=== PATIENT | female | born 1985 | race Caucasian/White ===

== ENCOUNTER 2016-11-27 15:48 | Inpatient (IN) | payer OTHER ==
[2016-11-27] VITALS (8 sets, daily range): BP systolic 105–126; BP diastolic 67–83
[~2016-11-27] VITALS: Ht 160 cm; Wt 63.0 kg
[~2016-11-27 15:48] MED LIST: ESCITALOPRAM OX10 MG ORAL; LEVOTHYROXINE175 MCG ORAL
[2016-11-27 17:34] LABS: BASOPHILS % (AUTO) 1.7 % (0.0-2.0); EOSINOPHILS % (AUTO) 1.6 % (0.0-3.0); LYMPHOCYTES % (AUTO) 19.4 % (20.0-45.0); MEAN CORPUSCULAR HEMOGLOBIN 30.8 PG (27.0-31.0); MEAN CORPUSCULAR HGB CONC 33.5 G/DL (32.0-36.0); MEAN CORPUSCULAR VOLUME 92 FL (80-99); MEAN PLATELET VOLUME 6.2 FL (6.5-10.1); MONOCYTES % (AUTO) 12.2 % (1.0-10.0); NEUTROPHILS % (AUTO) 65.1 % (45.0-75.0); PLATELET COUNT 394 K/UL (150-450); RED BLOOD COUNT 3.42 M/UL (4.20-5.40); RED CELL DISTRIBUTION WIDTH 11.2 % (11.6-14.8); WHITE BLOOD COUNT 8.5 K/UL (4.8-10.8)
[2016-11-27 17:37] LABS: APPEARANCE,URINE SLIGHTLY CLOUDY; KETONES,URINE NEGATIVE (NEGATIVE); LEUKOCYTE ESTERASE ,URINE 1+ (NEGATIVE); NITRITE,URINE NEGATIVE (NEGATIVE); PH,URINE 6 (4.5-8.0); PROTEIN,URINE NEGATIVE (NEGATIVE); UROBILINOGEN,URINE NORMAL MG/DL (0.0-1.0)
[2016-11-27 17:53] LABS: BACTERIA,URINE MODERATE /HPF; RBC,URINE 0-2 /HPF (0 - 2); SQUAMOUS EPITHELIAL CELL,UR MANY /LPF (NONE/OCC); WBC,URINE 0-2 /HPF (0 - 2)
[2016-11-27 18:00] LABS: PROTHROMBIN TIME 10.6 SEC (9.30-11.50)
[2016-11-27] MEDS ORDERED: Morphine Sulfate 4mg/ml Inj IVP ONE ×2 (18:15→19:00)
[2016-11-27 18:18] LABS: ALANINE AMINOTRANSFERASE 9 U/L (3-33); ALBUMIN/GLOBULIN RATIO 1.1 (1.0-2.7); ANION GAP 12 (5-15); ASPARTATE AMINO TRANSFERASE 12 U/L (5-40); CALCIUM 8.8 mg/dL (8.6-10.2); CARBON DIOXIDE 27 mEQ/L (20-30); CHLORIDE 101 mEQ/L (98-107); CREATININE 0.6 mg/dL (0.5-0.9); GLOMERULAR FILTRATION RATE > 60 mL/min (>60); HEMOLYSIS 1; SODIUM 140 mEQ/L (135-145)
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
[2016-11-27] MEDS ORDERED: [UNRECOGNIZED DRUG - OTHER] PO (19:14)
[2016-11-27] MEDS ORDERED: LEXAPRO10 MG ORAL (19:14)
[2016-11-27] MEDS ORDERED: CIPRO500 MG PO (19:14)
[2016-11-27] MEDS ORDERED: LEVOTHYROXINE125 MCG ORAL (19:14)
[2016-11-27] MEDS ORDERED: BUPROPION XL300 MG ORAL (19:14)
[2016-11-27] MEDS ORDERED: Vit E PO (19:14)
[2016-11-27] MEDS ORDERED: [UNRECOGNIZED DRUG - OTHER] (19:14)
[2016-11-27] MEDS ORDERED: IRON18 M1 PO (19:14)
[2016-11-27] MEDS ORDERED: SENNA LAXATIVE8.6 MG PO (19:14)
[2016-11-27] MEDS ORDERED: Propofol 10mg/ml 20ml IV ONE (19:23)
[2016-11-27] MEDS ORDERED: Bacitracin 50000 Units Vial ONE ×2 (19:24→20:20)
[2016-11-27] MEDS ORDERED: Bupivacaine w/Epi 0.25% 30ml Vial INJ ONE ×2 (19:53→21:05)
--- NOTE | 2016-11-27 20:11 | Anethesia Preoperative Eval ---
Anesthesia Pre-op PMH/ROS General Date of Evaluation: Nov 27, 2016 Anesthesiologist: Nathan ASA Score: ASA 2 Mallampati Score Class I : Soft palate, uvula, fauces, pillars visible Class II: Soft palate, uvula, fauces visible Class III: Soft palate, base of uvula visible Class IV: Only hard plate visible Mallampati Classification: Class II Surgeon: Brian Diagnosis: Right knee abscess Surgical Procedure: Right knee arthroscopy, I&D, washout Anesthesia History: none Family History: no anesthesia problems Allergies: Coded Allergies: HYDROMORPHONE (Verified Allergy, Unknown, 11/27/16) Medications: see eMAR Past Medical History Cardiovascular: Denies: CAD, HTN, VT, arrhythmia, other, valve dz Pulmonary: Denies: COPD, CHARISMA, asthma, other Gastrointestinal/Genitourinary: Denies: CRI, ESRD, GERD, other Neurologic/Psychiatric: Reports: depression/anxiety, Denies: CVA, TIA, dementia, other Endocrine: Reports: hypothyroidism, Denies: DM, other, steroids HEENT: Denies: [place] (L), [place] (R), cataract (L), cataract (R), glaucoma, other Hematology/Immune: Denies: DVT, anemia, bleeding disorder, other Musculoskeletal/Integumentary: Denies: DDD, DJD, OA, RA, edema, other PSxH Narrative: T&A, left ankle surgery, right knee arthroscopy Anesthesia Pre-op Phys. Exam Physician Exam Last Vital Signs Date Time Temp Pulse Resp B/P Pulse Ox O2 Delivery O2 Flow Rate FiO2 11/27/16 19:36 97.8 86 18 118/68 100 Room Air Constitutional: NAD Cardiovascular: RRR Respiratory: CTA Airway Exam Mallampati Score: Class I MO: full ROM: full Teeth: intact Anesthesia Pre-op A/P Labs Hematology Test 11/27/16 17:05 White Blood Count 8.5 K/UL (4.8-10.8) Red Blood Count 3.42 M/UL (4.20-5.40) L Hemoglobin 10.5 G/DL (12.0-16.0) L Hematocrit 31.4 % (37.0-47.0) L Mean Corpuscular Volume 92 FL (80-99) Mean Corpuscular Hemoglobin 30.8 PG (27.0-31.0) Mean Corpuscular Hemoglobin Concent 33.5 G/DL (32.0-36.0) Red Cell Distribution Width 11.2 % (11.6-14.8) L Platelet Count 394 K/UL (150-450) Mean Platelet Volume 6.2 FL (6.5-10.1) L Neutrophils (%) (Auto) 65.1 % (45.0-75.0) Lymphocytes (%) (Auto) 19.4 % (20.0-45.0) L Monocytes (%) (Auto) 12.2 % (1.0-10.0) H Eosinophils (%) (Auto) 1.6 % (0.0-3.0) Basophils (%) (Auto) 1.7 % (0.0-2.0) Erythrocyte Sedimentation Rate 112 MM/HR (0-20) H Coagulation Test 11/27/16 17:05 Prothrombin Time 10.6 SEC (9.30-11.50) Prothromb Time International Ratio 1.0 (0.9-1.1) Activated Partial Thromboplast Time 30 SEC (23-33) Chemistry Test 11/27/16 17:05 Sodium Level 140 mEQ/L (135-145) Potassium Level 4.0 mEQ/L (3.4-4.9) Chloride Level 101 mEQ/L (98-107) Carbon Dioxide Level 27 mEQ/L (20-30) Anion Gap 12 (5-15) Blood Urea Nitrogen 11 mg/dL (7-23) Creatinine 0.6 mg/dL (0.5-0.9) Estimat Glomerular Filtration Rate > 60 mL/min (>60) Glucose Level 83 mg/dL (74-106) Lactic Acid Level 0.90 mmol/L (0.66-2.22) Calcium Level 8.8 mg/dL (8.6-10.2) Total Bilirubin 0.2 mg/dL (0.0-1.2) Aspartate Amino Transf (AST/SGOT) 12 U/L (5-40) Alanine Aminotransferase (ALT/SGPT) 9 U/L (3-33) Alkaline Phosphatase 75 U/L (35-104) C-Reactive Protein, Quantitative Pending Total Protein 7.0 g/dL (6.6-8.7) Albumin 3.7 g/dL (3.5-5.2) Globulin 3.3 g/dL Albumin/Globulin Ratio 1.1 (1.0-2.7) Urine Test Test 11/27/16 16:30 Urine HCG, Qualitative Negative Risk Assessment & Plan Assessment: ASA II Plan: GA Status Change Before Surgery: No Pre-Antibiotics Drug: Cefepime 1g Given Within 1 Hr of Incision: Yes KULDEEP OCHOA M.D. Nov 27, 2016 20:11
[2016-11-27] MEDS ORDERED: LR 1000ml 1,000 ML IVLG SCH (20:12)
--- NOTE | 2016-11-27 20:14 | Immediate Post-Op Evaluation ---
Immediate Post-Op Evalulation Immediate Post-Op Evalulation Procedure: Right knee I&D Date of Evaluation: Nov 27, 2016 Time of Evaluation: 21:18 IV Fluids: 1L Blood Products: 0 Estimated Blood Loss: min Urinary Output: 0 Blood Pressure Systolic: 105 Blood Pressure Diastolic: 69 Pulse Rate: 65 Respiratory Rate: 13 O2 Sat by Pulse Oximetry: 97 Temperature (Fahrenheit): 97.2 Pain Score (1-10): 0 Nausea: No Vomiting: No Complications 0 Patient Status: awake, reacts, patent, none Hydration Status: adequate Drug: Cefepime 1g Given Within 1 Hr of Incision: Yes Time Given: 20:45 KULDEEP OCHOA M.D. Nov 27, 2016 20:14
[2016-11-27] MEDS ORDERED: Labetalol 5mg/ml 20ml vial IV PRN (20:15)
[2016-11-27] MEDS ORDERED: fentaNYL 100 mcg/2 mL IV PRN (20:15)
[2016-11-27] MEDS ORDERED: DiphenhydrAMINE 50mg/ml Inj IVP PRN (20:15)
[2016-11-27] MEDS ORDERED: Ketorolac 30mg Inj IV PRN (20:15)
[2016-11-27] MEDS ORDERED: Metoclopramide 10mg/2ml Inj IVP PRN (20:15)
[2016-11-27] MEDS ORDERED: Cefepime 1gm vial ONE (20:20)
--- NOTE | 2016-11-27 20:20 | Operative Note - PDOC ---
Operative Note Operative Note Pre-op Diagnosis: possible septic joint knee Procedure: see op report Post-op Diagnosis: same as pre-op plus Operative Findings: consistent w/pre-op dx studies Anesthesia: general Specimen: yes Complications: none Condition: stable Estimated Blood Loss: none Implant(s) used?: No KALYAN NAVARRO Nov 27, 2016 20:20
--- NOTE | 2016-11-27 20:20 | Pre-Procedure Note/Attestation ---
Pre-Procedure Note/Attestation Complete Prior to Procedure Planned Procedure: right Procedure Narrative: arthroscopic I&D knee Indications for Procedure Pre-Operative Diagnosis: possible septic joint knee Attestation I attest that I discussed the nature of the procedure; its benefits; risks and complications; and alternatives (and the risks and benefits of such alternatives ), prior to the procedure, with the patient (or the patient's legal medicare sales representative). I attest that, if there was a reasonable possibility of needing a blood transfusion, the patient (or the patient's legal medicare sales representative) was given the [facility] standardized written summary, pursuant to the [place] Blood Safety Act ([place] Health and Safety Code # 1645, as amended). I attest that I re-evaluated the patient just prior to the surgery and that there has been no change in the patient's H&P, except as documented below: KALYAN NAVARRO Nov 27, 2016 20:20
[2016-11-27] MEDS ORDERED: Norco 5mg/325mg tab ORAL PRN (20:30)
[2016-11-27] MEDS ORDERED: Hydromorphone 0.5mg/0.5ml inj SUBQ PRN (20:30)
[2016-11-27 21:45] LABS: BD FL SOURCE SYNOVIAL; BD FL VOLUME 6 mL; BODY FLUID NUCLEATED CELLS 112000 /CUMM; BODY FLUID RBC 53600 /CUMM; MONONUCLEAR WBC 4 %; POLYMORPHONUCLEAR WBC 96 %
[2016-11-27] MEDS ORDERED: Midazolam 2mg/2ml Inj ONE (22:05)
[2016-11-27] MEDS ORDERED: Midazolam 2mg/2ml Inj IVP ONE (22:15)
[2016-11-28] VITALS: BP 115/66
[2016-11-28] MEDS ORDERED: Morphine Sulfate 2mg/ml Inj IVP PRN (00:30)
[2016-11-28] MEDS: Morphine Sulfate 2mg/ml Inj IVP PRN ×6 (00:59→23:48)
[2016-11-28] MEDS: Cefepime HCl 1 GM in D5W 55 ML IVPB SCH ×2 (01:48→09:55)
[2016-11-28] MEDS: D5 1/2NS 1,000 ML IV SCH ×2 (01:49→08:04)
[2016-11-28 04:00] VITALS: BP 127/68
[2016-11-28] MEDS ORDERED: Miralax 17gm pkt ORAL PRN (06:45)
[2016-11-28] MEDS ORDERED: Docusate 100mg cap ORAL PRN (06:45)
--- NOTE | 2016-11-28 07:09 | Consultation ---
DATE OF CONSULTATION: 11/27/2016 CONSULTING PHYSICIAN: Chilo Torres M.D. CHIEF COMPLAINT: Right knee pain. HISTORY OF PRESENT ILLNESS: The patient is a 30-year-old female who approximately three months ago underwent an uncomplicated right knee arthroscopy and almost six weeks later, she was traveling to [place] and subsequently developed acute knee pain and swelling. She was ultimately diagnosed with Pseudomonas. She was treated and was rehabbing with her parents. She subsequently flew over the weekend on Saturday to [place] and on Saturday she contacted me with a concern given that she has significant recurrent pain. This is the same kind of clinical scenario that occurred when she traveled last time around. Given her history, she went to the ER where she had ultrasound, which was unremarkable. She subsequently noticed swelling in the knee. She contacted me. I informed her that I would like to see her and clinically examine her. Today, she came into the office. She had a warm and swollen knee. It was very painful with palpation or range of motion. With her history of previous Pseudomonas infection, which is unlikely organism and her clinical history which is very similar to what occurred before, I was concerned that she may have an infection. She underwent aspiration in the office, which showed some bloody, cloudy fluid, nothing like a normal synovial tissue. She had a previous history of infection and the concern that she has pain similar to what she had before, we decided to treat her for possible septic joint. She was sent to the ER. The fluid aspiration was done in the office and was sent out for Gram stain, aerobic and anaerobic cultures. She subsequently was admitted to undergo urgent I and D. PAST MEDICAL HISTORY: Reviewed and unchanged except as mentioned above. PAST SURGICAL HISTORY: Reviewed and unchanged except as mentioned above. MEDICATIONS: Reviewed and unchanged except as mentioned above. ASSESSMENT: Right possible knee infection due to previous Pseudomonas infection of right knee. DISCUSSION: At this point, we are going to proceed with an urgent arthroscopic I and D of the knee. Risks, limitations, expectations, and complications of procedure were discussed in detail. The patient will be NPO. We will proceed with surgery when the operating room is available. Chilo Torres M.D. DR: LESLIE JOB#: [id number] CC:
[2016-11-28] MEDS: Docusate 100mg cap ORAL SCH ×3 (08:02→19:17)
[2016-11-28 08:15] VITALS: BP 96/71
--- NOTE | 2016-11-28 11:03 | Infectious Diseases Prog Note ---
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 Torres 5) thank you Subjective Allergies: Coded Allergies: HYDROMORPHONE (Verified Allergy, Unknown, 11/27/16) Objective Vital Signs Last 24 Hour Vital Signs Date Time Temp Pulse Resp B/P Pulse Ox O2 Delivery O2 Flow Rate FiO2 11/28/16 09:03 98.1 11/28/16 08:15 98.1 82 21 96/71 96 Room Air 82 11/28/16 04:00 97.5 80 20 127/68 97 Room Air 11/28/16 00:00 97.9 78 20 115/66 97 Room Air 11/27/16 22:45 98.1 82 20 121/67 99 Room Air 11/27/16 21:57 98.0 90 20 126/69 99 Nasal Cannula 2.0 11/27/16 21:51 66 20 119/83 99 Nasal Cannula 2.0 11/27/16 21:30 70 20 121/73 100 Simple Mask 8.0 11/27/16 21:23 73 20 119/73 100 Simple Mask 8.0 11/27/16 21:18 70 20 108/73 100 Simple Mask 8.0 11/27/16 21:17 65 13 97 11/27/16 21:13 97.2 72 20 105/69 100 Simple Mask 8.0 11/27/16 19:36 97.8 86 18 118/68 100 Room Air 11/27/16 18:50 97.8 11/27/16 17:30 86 18 118/68 100 Room Air 11/27/16 16:02 97.9 113 18 112/79 99 Room Air Height (Feet): 5 Height (Inches): 3.00 Weight (Pounds): 139 Microbiology Date/Time Source Procedure Growth Status 11/27/16 16:30 Urine,Clean Catch Urine Culture - Preliminary NO GROWTH Resulted Laboratory Tests Test 11/27/16 14:30 11/27/16 16:30 11/27/16 17:05 Body Fluid Source Synovial Body Fluid Volume 6 mL Body Fluid RBC 47690 /CUMM Body Fluid Total Nucleated Cells [id number] /CUMM Body Fluid Polynuclear WBCs (%) 96 % Body Fluid Mononuclear WBCs (%) 4 % Body Fluid Crystals None seen Urine Color Yellow Urine Appearance Slightly cloudy Urine pH 6 (4.5-8.0) Urine Specific [place] 1.020 (1.005-1.035) Urine Protein Negative (NEGATIVE) Urine Glucose (UA) Negative (NEGATIVE) Urine Ketones Negative (NEGATIVE) Urine Occult Blood Negative (NEGATIVE) Urine Nitrite Negative (NEGATIVE) Urine Bilirubin Negative (NEGATIVE) Urine Urobilinogen Normal MG/DL (0.0-1.0) Urine Leukocyte Esterase 1+ (NEGATIVE) H Urine RBC 0-2 /HPF (0 - 2) Urine WBC 0-2 /HPF (0 - 2) Urine Squamous Epithelial Cells Many /LPF (NONE/OCC) H Urine Bacteria Moderate /HPF (NONE) H Urine HCG, Qualitative Negative White Blood Count 8.5 K/UL (4.8-10.8) Red Blood Count 3.42 M/UL (4.20-5.40) L Hemoglobin 10.5 G/DL (12.0-16.0) L Hematocrit 31.4 % (37.0-47.0) L Mean Corpuscular Volume 92 FL (80-99) Mean Corpuscular Hemoglobin 30.8 PG (27.0-31.0) Mean Corpuscular Hemoglobin Concent 33.5 G/DL (32.0-36.0) Red Cell Distribution Width 11.2 % (11.6-14.8) L Platelet Count 394 K/UL (150-450) Mean Platelet Volume 6.2 FL (6.5-10.1) L Neutrophils (%) (Auto) 65.1 % (45.0-75.0) Lymphocytes (%) (Auto) 19.4 % (20.0-45.0) L Monocytes (%) (Auto) 12.2 % (1.0-10.0) H Eosinophils (%) (Auto) 1.6 % (0.0-3.0) Basophils (%) (Auto) 1.7 % (0.0-2.0) Erythrocyte Sedimentation Rate 112 MM/HR (0-20) H Prothrombin Time 10.6 SEC (9.30-11.50) Prothromb Time International Ratio 1.0 (0.9-1.1) Activated Partial Thromboplast Time 30 SEC (23-33) Sodium Level 140 mEQ/L (135-145) Potassium Level 4.0 mEQ/L (3.4-4.9) Chloride Level 101 mEQ/L (98-107) Carbon Dioxide Level 27 mEQ/L (20-30) Anion Gap 12 (5-15) Blood Urea Nitrogen 11 mg/dL (7-23) Creatinine 0.6 mg/dL (0.5-0.9) Estimat Glomerular Filtration Rate > 60 mL/min (>60) Glucose Level 83 mg/dL (74-106) Lactic Acid Level 0.90 mmol/L (0.66-2.22) Calcium Level 8.8 mg/dL (8.6-10.2) Total Bilirubin 0.2 mg/dL (0.0-1.2) Aspartate Amino Transf (AST/SGOT) 12 U/L (5-40) Alanine Aminotransferase (ALT/SGPT) 9 U/L (3-33) Alkaline Phosphatase 75 U/L (35-104) C-Reactive Protein, Quantitative Pending Total Protein 7.0 g/dL (6.6-8.7) Albumin 3.7 g/dL (3.5-5.2) Globulin 3.3 g/dL Albumin/Globulin Ratio 1.1 (1.0-2.7) Current Medications Medications (Trade) Dose Ordered Sig/Soraya Route PRN Reason Start Time Stop Time Status Last Admin Dose Admin Acetaminophen 650 mg 650 mg Q6H PRN ORAL Mild Pain/Temp > 100.5 11/27/16 20:30 12/27/16 20:29 Cefepime HCl/ Dextrose (Maxipime/D5W) 55 ml @ 110 mls/hr Q12H IVPB 11/27/16 22:00 12/04/16 21:59 11/28/16 09:55 Dextrose/Sodium Chloride (D5 0.45% NS) 1,000 ml @ 75 mls/hr Q13H IV 11/27/16 20:30 12/27/16 20:29 11/28/16 08:04 Docusate Sodium (Colace) 100 mg BID PRN ORAL Constipation 11/28/16 06:45 12/28/16 06:44 Docusate Sodium (Colace) 100 mg THREE TIMES A DAY ORAL 11/28/16 09:00 12/28/16 08:59 11/28/16 08:02 Morphine Sulfate (Morphine Sulfate) 2 mg Q4H PRN IVP Severe Pain (Pain Scale 7-10) 11/28/16 04:30 12/05/16 04:29 11/28/16 09:53 Ondansetron HCl (Zofran) 4 mg Q6H PRN IVP Nausea & Vomiting 11/28/16 06:45 12/28/16 06:44 Oxycodone/ Acetaminophen (Percocet 10/325) 1 tab Q4H PRN ORAL Moderate Pain (Pain Scale 4-6) 11/28/16 04:15 12/05/16 04:14 11/28/16 08:04 Polyethylene Glycol (Miralax) 17 gm DAILY PRN ORAL Constipation 11/28/16 06:45 12/28/16 06:44 Temazepam (Restoril) 7.5 mg HSPRN PRN ORAL Insomnia 11/27/16 20:30 12/04/16 20:29 SPENCER SCHWARTZ Nov 28, 2016 11:03
--- NOTE | 2016-11-28 11:18 | Diagnostic Imaging Report ---
Indication: Chest pain Technique: One view of the chest Comparison: none Findings: Lungs and pleural spaces are clear. Heart size is normal Impression: No acute process
[2016-11-28 11:57] VITALS: BP 101/54
[2016-11-28] MEDS: Vancomycin 1250mg/D5W 275ml IVPB SCH ×2 (12:38)
--- NOTE | 2016-11-28 13:20 | History & Physical ---
History and Physical History & Physicial Dictated for Int Med-Dr Montana no. [id number]. LISA WRIGHT Nov 28, 2016 13:20
[2016-11-28] MEDS: BuPROPion XL 300mg tab ORAL SCH (14:07)
--- NOTE | 2016-11-28 14:18 | Cardiology Report ---
APPROVED REPORT EKG Measurement Heart [id number] Normal sinus rhythm Normal ECG
[2016-11-28 16:00] VITALS: BP 100/61
--- NOTE | 2016-11-28 16:04 | 48 Hour Post Anesthesia Eval ---
Post Anesthesia Evaluation Procedure: Right knee I&D Date of Evaluation: Nov 28, 2016 Time of Evaluation: 07:10 Blood Pressure Systolic: 127 0: 68 Pulse Rate: 80 Respiratory Rate: 20 Temperature (Fahrenheit): 97.5 O2 Sat by Pulse Oximetry: 97 Airway: patent Nausea: No Vomiting: No Pain Intensity: 3 Hydration Status: adequate Cardiopulmonary Status: at baseline Mental Status/LOC: patient returned to baseline Post-Anesthesia Complications: 0 Follow-up care needed: N/A - further care as per primary team KULDEEP OCHOA M.D. Nov 28, 2016 16:04
--- NOTE | 2016-11-28 16:38 | Operative Note - Dictated ---
DATE OF OPERATION: 11/27/2016 PREOPERATIVE DIAGNOSES: 1. Right septic knee. 2. Degenerative tear of medial and lateral meniscus. 3. Intraarticular adhesions. 4. Partial tear of anterolateral bundle anterior cruciate ligament. POSTOPERATIVE DIAGNOSES: 1. Right septic knee. 2. Degenerative tear of medial and lateral meniscus. 3. Intraarticular adhesions. 4. Partial tear of anterolateral bundle anterior cruciate ligament. PROCEDURES: 1. Right knee diagnostic arthroscopy. 2. Synovectomy of medial and lateral patellofemoral compartment. 3. Medial and lateral partial meniscectomy. SURGEON: Chilo Torres M.D. ANESTHESIA: General. INDICATION FOR PROCEDURE: The patient is a pleasant female, who is presumed to have a septic joint. Given her previous history, given that aspiration was concerning for cloudy material and her clinical history and her unusual presentation and usual organism, which was Pseudomonas, it was felt that arthroscopic incision and drainage would be reasonable. Risks, limitations, expectations, and complication of the procedure were discussed in detail. All questions were addressed. DESCRIPTION OF PROCEDURE: An informed consent was obtained, the patient was taken to the operative room and placed under interscalene general anesthesia. The patient was then carefully placed in the operating room table. The right leg was prepped and draped in a sterile manner. Time-out was performed. Tourniquet was applied. Leg was elevated. Tourniquet was inflated to 250 mmHg. At this point, a previous lateral skin incision was incised, trocar was introduced into the knee joint and the knee was drained. Approximately 10 mL of fluid was aspirated from the knee. Once the patella was massaged, no further fluid was aspirated. Even though there is a dry aspiration after the 10 mL, there is still some fullness in the suprapatellar pouch area consistent with may be myositis. At this point, the camera was placed into the knee joint. There was significant intra-articular adhesions in the patellofemoral and medial and lateral patellofemoral compartment. These adhesions with hypertrophic synovial tissue was then debrided using a shaver. The patellofemoral cup and medial and lateral gutter, medial compartment, lateral compartment, and intercondylar notch were all cleaned out. Once this was done, a diagnostic arthroscopy was performed. Medial compartment was entered. There was some degenerative tears of the medial meniscus. Partial meniscectomy was performed up to stable rim of tissue. The anterior cruciate ligament was probed and noted to be intact. The hypertrophic synovial tissue anterior to the anterior cruciate ligament was debrided to better visualize the lateral compartment of the knee. Lateral compartment was entered. There was some degenerative tear of the lateral meniscus. This was debrided. Partial lateral meniscectomy was performed using combination of mary. Once this was done, attention was turned towards the lateral gutter, which was debrided of any synovial hypertrophic tissue. Once that was done, the camera was placed in the medial working portal. The anterior cruciate ligament was again noted, but this time there was some tears to the anterolateral bundle, which was unrecognized from the other viewing portal. Although anterior cruciate ligament appeared to be intact, there may be some insufficiency, which was unusual compared to the previous surgery. At this point, 12 liters of bacitracin-containing irrigation was then used to irrigate the knee throughout the patellofemoral medial and lateral compartment. Once this was completed, the instruments were removed. Intraarticular injection containing 0.25% Marcaine with epinephrine was injected and the portal sites were closed with #0 Monocryl sutures. Compression dressing was applied. Tourniquet was deflated after 30 minutes. ESTIMATED BLOOD LOSS: Minimal. COMPLICATIONS: None. SPECIMENS: Right knee aspirate. IMPLANTS: None. Chilo Torres M.D. DR: RIYA JOB#: [id number] CC:
--- NOTE | 2016-11-28 19:48 | History and Physical Report ---
DATE OF ADMISSION: 11/27/2016 CHIEF COMPLAINT: The patient is a 30-year-old white female who presents with chief complaint of right knee pain. HISTORY OF PRESENT ILLNESS: The patient underwent arthroscopic surgery of the right knee for a meniscus tear on August 2016. This was done by Dr. Gaurav Torres at [facility]. The patient then traveled to [place]. The patient experienced swelling of the right knee while in [place]. The patient was evaluated hospital in [place] and was diagnosed with Pseudomonas infection of the right knee. The patient was hospitalized for 15 days for intravenous antibiotics in [place]. The patient was discharged on ciprofloxacin. The patient returned to [place] on Saturday11/25/2016. The patient again experienced pain and swelling of the right knee. The patient was evaluated by Dr. Gaurav Torres in his office. The patient was sent to [facility] for repeat arthroscopic surgery. The patient is admitted for right knee septic arthritis. PAST MEDICAL HISTORY: Significant for hypothyroidism. PAST SURGICAL HISTORY: Significant for arthroscopic surgery x3 as above once in August 2016 here at [facility], second one in September [facility], and third one which was 11/27/2016 here at [facility] by Dr. Gaurav Torres. CURRENT MEDICATIONS: 1. Ciprofloxacin 750 mg one tablet p.o. twice daily. 2. Levoxyl 0.175 mg one tablet p.o. daily. 3. Wellbutrin 50 mg one tablet p.o. daily. 4. Lexapro 10 mg one tablet p.o. daily. 5. Probiotic [id number]-yqogweu. 6. Pyey-mlw-xmbfbzg vitamins. ALLERGIES: To Dilaudid. SOCIAL HISTORY: The patient has a long-term boyfriend. 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 The patient denies tobacco use. The patient admits to occasional alcohol use. PHYSICAL EXAMINATION: VITAL SIGNS: Temperature 97.9, respirations 20, pulse 78, blood pressure 115/66. GENERAL: The patient is a well-developed and well-nourished black female, no apparent distress. HEENT: Eyes: Pupils are equal and responsive to light and accommodation. Extraocular movements are intact. NECK: Supple without lymphadenopathy. CHEST: Lungs are clear to auscultation bilaterally without wheezes or rales. CARDIOVASCULAR: Regular rhythm and rate. S1 and S2. No murmurs, rubs, or gallops. ABDOMEN: Soft, nontender, and nondistended. Positive bowel sounds. No evidence of hepatosplenomegaly. Currently no rebound or guarding. EXTREMITIES: The right knee is swollen compared to the left. There is erythema at the right knee compared to the left. Otherwise, without clubbing, cyanosis, or edema. RECTAL/GENITAL: Refused. NEUROLOGIC: Cranial nerves II through XII are grossly intact without focal deficits. Motor strength 5/5 bilaterally. Deep tendon reflexes are 2+ plantar. LABORATORY STUDIES: WBC 8.5, hemoglobin 10.0, hematocrit 31.4, platelets 394,000. Sodium 140, potassium 4.0, chloride 101, CO2 27, BUN 11, creatinine 0.6, glucose 83. ASSESSMENT: This is a 30-year-old white female: 1. Septic arthritis, right knee. 2. Hypothyroidism. 3. Major depression. TREATMENT: 1. Septic arthritis of the right knee, the patient is now postop day number 1, status post repeat right knee arthroscopy. Cultures are pending. An Infectious disease has been obtained with Dr. Cárdenas. We will await culture results of right knee synovial fluid. The patient has been started empirically on cefepime and vancomycin. 2. Hypothyroidism. Continue Levoxyl as above. 3. Major depression. Continue Lexapro and Wellbutrin as above. Dc Berumen M.D. DR: Mary JOB#: [id number] CC:
[2016-11-28 20:00] VITALS: BP 114/68
[2016-11-28] MEDS ORDERED: NS Irrig 2000ml IRRIG ONE (20:00)
[2016-11-28] MEDS ORDERED: fentaNYL 100 mcg/2 mL IV ONE (20:00)
[2016-11-28] MEDS ORDERED: Lidocaine 1% MPF 10mg/ml 5ml ONE (20:00)
[2016-11-28] MEDS ORDERED: LR 1000ml ONE (20:00)
[2016-11-28] MEDS ORDERED: Midazolam 2mg/2ml Inj ONE (20:00)
[2016-11-29] VITALS: BP 101/61
[2016-11-29] MEDS: Vancomycin 1250mg/D5W 275ml IVPB SCH ×4 (01:36→12:52)
[2016-11-29 04:00] VITALS: BP 106/58
[2016-11-29] MEDS: Morphine Sulfate 2mg/ml Inj IVP PRN ×4 (04:07→20:03)
--- NOTE | 2016-11-29 05:27 | Consultation ---
DATE OF CONSULTATION: 11/28/2016 INFECTIOUS DISEASES CONSULTATION CONSULTING PHYSICIAN: Becky Cárdenas M.D. ATTENDING PHYSICIAN: Jj Montana M.D. REQUESTING PHYSICIAN: Chilo Torres M.D. REASON FOR CONSULTATION: Infected right knee, septic arthritis, cellulitis, and osteomyelitis. CHIEF COMPLAINT/HISTORY OF PRESENT ILLNESS: Infected right knee, septic arthritis, and cellulitis. The patient is a very pleasant 30-year-old female, who approximately 3 months ago underwent right knee arthroscopy and 6 weeks later was in [place] and developed acute knee swelling. She underwent debridement and was diagnosed as Pseudomonas infection of the right knee. The patient was given antibiotics oral Cipro. Now, the patient presents to [facility] with right knee swelling. Clinically, it seems like it was cellulitis. Aspiration was consistent with septic arthritis. The patient is status post incision and drainage or debridement of the right knee. Cultures are pending. Infectious diseases consultation was requested for antibiotic management. The patient will be placed on vancomycin and cefepime. Case was discussed with Dr. Torres and the patient. PAST MEDICAL HISTORY: Hypothyroidism and major depression looks like per the records. MEDICATIONS: I placed her on vancomycin and cefepime. She is on Synthroid. She is on Wellbutrin, Lexapro, vancomycin, cefepime, Colace, MiraLax, Zofran, morphine sulfate, and Percocet. Please see medications in medical order. ALLERGIES: Hydromorphone. FAMILY HISTORY: Noncontributory. SOCIAL HISTORY: Negative for smoking, alcohol, or drug use. REVIEW OF SYSTEMS: Main issue is the right knee pain. She denies any thrush, dysphagia, diarrhea, shortness of breath, cough, congestion, chest pain, fever, or chills. Her main issue is right knee swelling and pain. PHYSICAL EXAMINATION: VITAL SIGNS: Temperature 97.0 degrees, pulse rate 81, respiratory rate 18, blood pressure 114/68, and saturation 100%. GENERAL: Alert and responsive, in no acute distress. HEAD AND NECK: Normocephalic. No facial droop. She is alert and oriented x3. HEART: Regular. No gallop or murmur. ABDOMEN: Soft. Positive bowel sounds. Nontender. LUNGS: Clear bilaterally. No rhonchi or rales. SKIN: No rash or dermatitis. Right knee is covered. NEUROLOGIC: Intact. Nonfocal. EXTREMITIES: Without cyanosis. Otherwise exam is deferred. LABORATORY DATA: White count 8.5, hemoglobin 10.5, and platelet count 112,000. Creatinine is 0.6. UA was 0 to 2 white blood cells. urine HCG was negative. Chest x-ray is negative. The wound culture from the surgery is pending. Urine culture is negative. Aspiration of the fluid showed 112,000 nucleated cells, 96% white cells, and 96% polynuclear cells. Crystals were negative. ASSESSMENT AND PLAN: 1. The patient has right knee septic arthritis, cellulitis, possible underlying osteo, sedimentation rate elevated and fluid analysis consistent with septic arthritis. The patient has a history of Pseudomonas infection in the right knee. The patient was on antibiotics with intravenous and oral Cipro. The patient will be started on vancomycin and cefepime. We will check body fluid culture from surgery. The patient may need a ventral PICC line and long-term antibiotics depending on the workup. I suspect that she does have septic arthritis and possible underlying osteo, especially with elevated sedimentation rate. Continue vancomycin and cefepime pending cultures. 2. Hypothyroidism. 3. Depression. 4. Pain management. 5. Allergy to hydromorphone. 6. Case was discussed with Dr. Torres. 7. Case was discussed with the patient. Becky Cárdenas M.D. DR: MARY JOB#: [id number] CC:
[2016-11-29] MEDS: Levothyroxine 25mcg tab ORAL SCH (06:15)
[2016-11-29 07:14] LABS: BASOPHILS % (AUTO) 1.2 % (0.0-2.0); EOSINOPHILS % (AUTO) 3.7 % (0.0-3.0); LYMPHOCYTES % (AUTO) 28.4 % (20.0-45.0); MEAN CORPUSCULAR HEMOGLOBIN 29.9 PG (27.0-31.0); MEAN CORPUSCULAR HGB CONC 33.2 G/DL (32.0-36.0); MEAN CORPUSCULAR VOLUME 90 FL (80-99); MEAN PLATELET VOLUME 6.6 FL (6.5-10.1); NEUTROPHILS % (AUTO) 51.7 % (45.0-75.0); PLATELET COUNT 294 K/UL (150-450); RED BLOOD COUNT 2.99 M/UL (4.20-5.40); WHITE BLOOD COUNT 5.9 K/UL (4.8-10.8)
[2016-11-29 07:39] LABS: ANION GAP 12 (5-15); CALCIUM 8.6 mg/dL (8.6-10.2); CARBON DIOXIDE 28 mEQ/L (20-30); CHLORIDE 99 mEQ/L (98-107); CREATININE 0.6 mg/dL (0.5-0.9); GLOMERULAR FILTRATION RATE > 60 mL/min (>60); HEMOLYSIS 0; SODIUM 139 mEQ/L (135-145)
[2016-11-29 08:09] VITALS: BP 106/52
[2016-11-29] MEDS: Docusate 100mg cap ORAL SCH ×3 (09:33→17:32)
[2016-11-29] MEDS: BuPROPion XL 300mg tab ORAL SCH (09:33)
[2016-11-29 11:43] VITALS: BP 103/62
[2016-11-29 16:00] VITALS: BP 105/61
--- NOTE | 2016-11-29 17:33 | Internal Med Progress Note ---
Subjective Date of Service: Nov 29, 2016 Physician Name Dc Wright Attending Physician Jj Montana MD Current Medications Medications (Trade) Dose Ordered Sig/Soraya Route PRN Reason Start Time Stop Time Status Last Admin Dose Admin Acetaminophen (Tylenol) 650 mg Q6H PRN ORAL Mild Pain/Temp > 100.5 11/27/16 20:30 12/27/16 20:29 Bupropion HCl (Wellbutrin XL) 150 mg DAILY ORAL 11/28/16 14:00 12/28/16 13:59 11/29/16 09:33 Cefepime HCl 2 gm/ Dextrose 100 ml @ 200 mls/hr Q12HR IVPB 11/28/16 21:00 12/05/16 20:59 11/29/16 09:34 Docusate Sodium (Colace) 100 mg BID PRN ORAL Constipation 11/28/16 06:45 12/28/16 06:44 Docusate Sodium (Colace) 100 mg THREE TIMES A DAY ORAL 11/28/16 09:00 12/28/16 08:59 11/29/16 12:49 Escitalopram Oxalate (Lexapro) 10 mg DAILY ORAL 11/28/16 13:30 12/28/16 13:29 11/29/16 09:32 Levothyroxine Sodium (Synthroid) 25 mcg DAILY@0630 ORAL 11/29/16 06:30 12/29/16 06:29 11/29/16 06:15 Levothyroxine Sodium (Synthroid) 150 mcg DAILY@0630 ORAL 11/29/16 06:30 12/29/16 06:29 11/29/16 06:15 Morphine Sulfate (Morphine Sulfate) 2 mg Q4H PRN IVP Severe Pain (Pain Scale 7-10) 11/28/16 04:30 12/05/16 04:29 11/29/16 16:31 Ondansetron HCl (Zofran) 4 mg Q6H PRN IVP Nausea & Vomiting 11/28/16 06:45 12/28/16 06:44 Oxycodone/ Acetaminophen (Percocet 10/325) 1 tab Q4H PRN ORAL Moderate Pain (Pain Scale 4-6) 11/28/16 04:15 12/05/16 04:14 11/29/16 12:50 Polyethylene Glycol (Miralax) 17 gm DAILY PRN ORAL Constipation 11/28/16 06:45 12/28/16 06:44 Temazepam (Restoril) 7.5 mg HSPRN PRN ORAL Insomnia 11/27/16 20:30 12/04/16 20:29 Vancomycin HCl 1 ea 1 ea DAILY PRN MISC Per rx protocol 11/28/16 11:00 12/28/16 10:59 Vancomycin HCl/ Dextrose (Vancomycin/D5W) 275 ml @ 183.333 mls/hr Q12HR@0100,1300 IVPB 11/28/16 13:00 12/03/16 12:59 11/29/16 12:52 Allergies: Coded Allergies: HYDROMORPHONE (Verified Allergy, Unknown, 11/27/16) ROS Limited/Unobtainable: No Constitutional: Reports: no symptoms HEENT: Reports: no symptoms Cardiovascular: Reports: no symptoms Respiratory: Reports: no symptoms Gastrointestinal/Abdominal: Reports: no symptoms Genitourinary: Reports: no symptoms Neurologic/Psychiatric: Reports: no symptoms Subjective 30YO F admitted with septic arthritis and right knee pain. S/P right knee arthroscopy on 11/27/16. Cover fro Int Med-Dr Montana. Objective Last Vital Signs Date Time Temp Pulse Resp B/P Pulse Ox O2 Delivery O2 Flow Rate FiO2 11/29/16 16:00 98.1 85 20 105/61 98 Room Air 11/27/16 21:57 2.0 General Appearance: WD/WN, no apparent distress, alert EENT: PERRL/EOMI, normal ENT inspection, TMs normal Neck: non-tender, normal alignment, supple, normal inspection Cardiovascular: normal peripheral pulses, normal rate, regular rhythm, no gallop/murmur, no JVD Respiratory/Chest: chest wall non-tender, lungs clear, normal breath sounds, no respiratory distress, no accessory muscle use Abdomen: normal bowel sounds, non tender, soft, no organomegaly, no mass Extremities: other - right knee dressing clean and dry Neurologic: specifications writer II-XII 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 normal, no motor/sensory deficits Skin: normal pigmentation, warm/dry Laboratory Tests Test 11/29/16 05:35 White Blood Count 5.9 K/UL (4.8-10.8) Red Blood Count 2.99 M/UL (4.20-5.40) L Hemoglobin 8.9 G/DL (12.0-16.0) L Hematocrit 26.9 % (37.0-47.0) L Mean Corpuscular Volume 90 FL (80-99) Mean Corpuscular Hemoglobin 29.9 PG (27.0-31.0) Mean Corpuscular Hemoglobin Concent 33.2 G/DL (32.0-36.0) Red Cell Distribution Width 11.0 % (11.6-14.8) L Platelet Count 294 K/UL (150-450) Mean Platelet Volume 6.6 FL (6.5-10.1) Neutrophils (%) (Auto) 51.7 % (45.0-75.0) Lymphocytes (%) (Auto) 28.4 % (20.0-45.0) Monocytes (%) (Auto) 15.0 % (1.0-10.0) H Eosinophils (%) (Auto) 3.7 % (0.0-3.0) H Basophils (%) (Auto) 1.2 % (0.0-2.0) Sodium Level 139 mEQ/L (135-145) Potassium Level 4.0 mEQ/L (3.4-4.9) Chloride Level 99 mEQ/L (98-107) Carbon Dioxide Level 28 mEQ/L (20-30) Anion Gap 12 (5-15) Blood Urea Nitrogen 4 mg/dL (7-23) L Creatinine 0.6 mg/dL (0.5-0.9) Estimat Glomerular Filtration Rate > 60 mL/min (>60) Glucose Level 88 mg/dL (74-106) Calcium Level 8.6 mg/dL (8.6-10.2) Microbiology Date/Time Source Procedure Growth Status 11/27/16 17:15 Blood Blood Culture - Preliminary NO GROWTH AFTER 24 HOURS Resulted 11/27/16 17:05 Blood Blood Culture - Preliminary NO GROWTH AFTER 24 HOURS Resulted 11/27/16 16:30 Urine,Clean Catch Urine Culture - Preliminary Mixed Gram Positive Organism Resulted 11/27/16 14:30 Knee Right Gram Stain - Final Resulted 11/27/16 14:30 Knee Right Aerobic Culture - Preliminary NO GROWTH AFTER 48 HOURS Resulted Intake and Output 11/28/16 11/29/16 19:00 07:00 Intake Total 480 ml 480 ml Balance 480 ml 480 ml Intake Oral 480 ml 380 ml IV Total 100 ml # Voids 6 3 Assessment/Plan Problem List: (1) Septic arthritis of knee, right Assessment & Plan: S/P repeat arthroscopy on 11/27/16-See ortho note. Cont IV vanco per ID; await cultures. (2) Hypothyroidism Assessment & Plan: Cont levoxyl (3) Major depression Assessment & Plan: Cont welbutrin and lexapro (4) Right knee pain Assessment & Plan: Cont morphine IV and oral percocet. Status: progressing DC WRIGHT Nov 29, 2016 17:33
[2016-11-29] MEDS ORDERED: Lidocaine 1% Plain 30 ml INJ SCH (18:00)
[2016-11-29] MEDS ORDERED: Heparin 2000 units/Ns 1000ml INJ SCH (18:00)
[2016-11-29] MEDS ORDERED: Sodium Bicarbonate 8.4% 50ml Inj IV SCH (18:00)
[2016-11-29 19:00] VITALS: BP 101/69
[2016-11-29] MEDS ORDERED: Morphine Sulfate 2mg/ml Inj IVP PRN (20:00)
[2016-11-29] MEDS: oxyCONTIN 10mg tab ORAL SCH (20:03)
[2016-11-30] VITALS (7 sets, daily range): BP systolic 98–115; BP diastolic 44–70
[2016-11-30] MEDS: Morphine Sulfate 2mg/ml Inj IVP PRN ×4 (00:45→19:16)
[2016-11-30] MEDS: Vancomycin 1250mg/D5W 275ml IVPB SCH ×6 (03:13→19:08)
[2016-11-30] MEDS: Levothyroxine 25mcg tab ORAL SCH (06:21)
[2016-11-30 06:36] LABS: BASOPHILS % (AUTO) 1.5 % (0.0-2.0); EOSINOPHILS % (AUTO) 4.2 % (0.0-3.0); LYMPHOCYTES % (AUTO) 30.3 % (20.0-45.0); MEAN CORPUSCULAR HEMOGLOBIN 29.7 PG (27.0-31.0); MEAN CORPUSCULAR HGB CONC 33.1 G/DL (32.0-36.0); MEAN CORPUSCULAR VOLUME 90 FL (80-99); MEAN PLATELET VOLUME 6.5 FL (6.5-10.1); PLATELET COUNT 350 K/UL (150-450); RED BLOOD COUNT 3.18 M/UL (4.20-5.40); RED CELL DISTRIBUTION WIDTH 10.9 % (11.6-14.8); WHITE BLOOD COUNT 5.8 K/UL (4.8-10.8)
[2016-11-30 07:06] LABS: ANION GAP 12 (5-15); CALCIUM 8.8 mg/dL (8.6-10.2); CARBON DIOXIDE 29 mEQ/L (20-30); CHLORIDE 99 mEQ/L (98-107); CREATININE 0.6 mg/dL (0.5-0.9); GLOMERULAR FILTRATION RATE > 60 mL/min (>60); HEMOLYSIS 1; POTASSIUM 3.9 mEQ/L (3.4-4.9); SODIUM 140 mEQ/L (135-145)
[2016-11-30] MEDS: oxyCONTIN 10mg tab ORAL SCH ×2 (08:35→20:49)
[2016-11-30] MEDS: BuPROPion XL 300mg tab ORAL SCH (08:35)
[2016-11-30] MEDS: Docusate 100mg cap ORAL SCH ×3 (08:35→17:24)
--- NOTE | 2016-11-30 13:21 | Infectious Diseases Prog Note ---
Assessment/Plan Assessment/Plan A) 1) right knee fluid analysis c/w septic arthritis, ? osteo 2) s/p I/D right knee on 11/27/16 3) bfc negative but on prior abx 4) hx pseudomonas right knee, s/p debridement, s/p usp abx including cipro which she is on now 5) s/p right knee arthroscopy 3 months ago 6) pmh o/w negative P) 1) vancomycin and cefepime for at least 4 weeks since had prior pseudomonas infection per hx and empiric staph aureus treatment because of infection recurrence 2) check mri to r/o underlying osteo 3) watch labs 4) d/w Dr. Torres 5) d/w patient and answered questions Subjective HEENT: Denies: congestion Respiratory: Denies: shortness of breath Gastrointestinal/Abdominal: Denies: nausea Neurologic: Denies: headache, numbness Psychiatric: Denies: depression Skin: Denies: rash Musculoskeletal: Reports: other - right knee pain Allergies: Coded Allergies: HYDROMORPHONE (Verified Allergy, Unknown, 11/27/16) Objective Vital Signs Last 24 Hour Vital Signs Date Time Temp Pulse Resp B/P Pulse Ox O2 Delivery O2 Flow Rate FiO2 11/30/16 12:08 98.1 89 15 108/44 93 Room Air 11/30/16 07:59 97.7 78 16 98/56 98 Room Air 11/30/16 04:00 97.7 76 18 106/68 97 Room Air 11/30/16 00:30 104/68 11/30/16 00:00 97.7 83 18 99/69 98 Room Air 11/29/16 20:33 98.1 11/29/16 20:33 98.1 11/29/16 19:00 97.9 74 20 101/69 96 Room Air 11/29/16 18:32 98.1 11/29/16 17:01 98.1 11/29/16 16:00 98.1 85 20 105/61 98 Room Air Height (Feet): 5 Height (Inches): 3.00 Weight (Pounds): 139 General Appearance: no acute distress HEENT: normocephalic, atraumatic, anicteric, mucous membranes moist, PERRL, EOMI, pharynx normal, supple, no JVD Respiratory/Chest: lungs clear, normal breath sounds, no respiratory distress, no accessory muscle use Cardiovascular: normal rate, regular rhythm, no gallop/murmur Abdomen: normal bowel sounds, soft, non tender, no organomegaly, non distended Extremities: no cyanosis, other - right knee with swelling Skin: no rash Neurologic/Psychiatric: test director II-XII grossly normal, alert, oriented x 3, responsive Lymphatic: no neck adenopathy Musculoskeletal: no effusion Microbiology Date/Time Source Procedure Growth Status 11/27/16 17:15 Blood Blood Culture - Preliminary NO GROWTH AFTER 48 HOURS Resulted 11/27/16 17:05 Blood Blood Culture - Preliminary NO GROWTH AFTER 48 HOURS Resulted 11/27/16 16:30 Urine,Clean Catch Urine Culture - Final Mixed Gram Positive Organism Complete 11/27/16 14:30 Knee Right Gram Stain - Final Resulted 11/27/16 14:30 Knee Right Aerobic Culture - Preliminary NO GROWTH AFTER 72 HOURS Resulted Laboratory Tests Test 11/30/16 00:40 11/30/16 05:30 Vancomycin Level Trough 7.3 ug/mL (5.0-12.0) White Blood Count 5.8 K/UL (4.8-10.8) Red Blood Count 3.18 M/UL (4.20-5.40) L Hemoglobin 9.4 G/DL (12.0-16.0) L Hematocrit 28.6 % (37.0-47.0) L Mean Corpuscular Volume 90 FL (80-99) Mean Corpuscular Hemoglobin 29.7 PG (27.0-31.0) Mean Corpuscular Hemoglobin Concent 33.1 G/DL (32.0-36.0) Red Cell Distribution Width 10.9 % (11.6-14.8) L Platelet Count 350 K/UL (150-450) Mean Platelet Volume 6.5 FL (6.5-10.1) Neutrophils (%) (Auto) 50.0 % (45.0-75.0) Lymphocytes (%) (Auto) 30.3 % (20.0-45.0) Monocytes (%) (Auto) 14.0 % (1.0-10.0) H Eosinophils (%) (Auto) 4.2 % (0.0-3.0) H Basophils (%) (Auto) 1.5 % (0.0-2.0) Sodium Level 140 mEQ/L (135-145) Potassium Level 3.9 mEQ/L (3.4-4.9) Chloride Level 99 mEQ/L (98-107) Carbon Dioxide Level 29 mEQ/L (20-30) Anion Gap 12 (5-15) Blood Urea Nitrogen 5 mg/dL (7-23) L Creatinine 0.6 mg/dL (0.5-0.9) Estimat Glomerular Filtration Rate > 60 mL/min (>60) Glucose Level 87 mg/dL (74-106) Calcium Level 8.8 mg/dL (8.6-10.2) Current Medications Medications (Trade) Dose Ordered Sig/Soraya Route PRN Reason Start Time Stop Time Status Last Admin Dose Admin Acetaminophen (Tylenol) 650 mg Q6H PRN ORAL Mild Pain/Temp > 100.5 11/27/16 20:30 12/27/16 20:29 Bupropion HCl (Wellbutrin XL) 150 mg DAILY ORAL 11/28/16 14:00 12/28/16 13:59 11/30/16 08:35 Cefepime HCl/ Dextrose (Maxipime/D5W) 100 ml @ 200 mls/hr Q12HR IVPB 11/28/16 21:00 12/05/16 20:59 11/30/16 08:40 Docusate Sodium (Colace) 100 mg BID PRN ORAL Constipation 11/28/16 06:45 12/28/16 06:44 Docusate Sodium (Colace) 100 mg THREE TIMES A DAY ORAL 11/28/16 09:00 12/28/16 08:59 11/30/16 08:35 Escitalopram Oxalate (Lexapro) 10 mg DAILY ORAL 11/28/16 13:30 12/28/16 13:29 11/30/16 08:35 Levothyroxine Sodium (Synthroid) 25 mcg DAILY@0630 ORAL 11/29/16 06:30 12/29/16 06:29 11/30/16 06:21 Levothyroxine Sodium (Synthroid) 150 mcg DAILY@0630 ORAL 11/29/16 06:30 12/29/16 06:29 11/30/16 06:21 Morphine Sulfate 2 mg 2 mg Q2H PRN IVP Severe Pain (Pain Scale 7-10) 11/29/16 20:00 12/06/16 19:59 11/30/16 03:47 Ondansetron HCl (Zofran) 4 mg Q6H PRN IVP Nausea & Vomiting 11/28/16 06:45 12/28/16 06:44 Oxycodone HCl (OxyCONTIN) 10 mg Q12HR ORAL 11/29/16 21:00 12/06/16 20:59 11/30/16 08:35 Oxycodone/ Acetaminophen (Percocet 10/325) 1 tab Q4H PRN ORAL Moderate Pain (Pain Scale 4-6) 11/28/16 04:15 12/05/16 04:14 11/30/16 05:33 Polyethylene Glycol (Miralax) 17 gm DAILY PRN ORAL Constipation 11/28/16 06:45 12/28/16 06:44 Temazepam (Restoril) 7.5 mg HSPRN PRN ORAL Insomnia 11/27/16 20:30 12/04/16 20:29 Vancomycin HCl 1 ea 1 ea DAILY PRN MISC Per rx protocol 11/28/16 11:00 12/28/16 10:59 Vancomycin HCl/ Dextrose (Vancomycin/D5W) 275 ml @ 183.333 mls/hr Q8H IVPB 11/30/16 03:00 12/05/16 02:59 11/30/16 11:33 SPENCER SCHWARTZ Nov 30, 2016 13:21
--- NOTE | 2016-11-30 19:00 | Internal Med Progress Note ---
Subjective Date of Service: Nov 30, 2016 Physician Name Lisa Wright Attending Physician Jj Montana MD Current Medications Medications (Trade) Dose Ordered Sig/Soraya Route PRN Reason Start Time Stop Time Status Last Admin Dose Admin Acetaminophen (Tylenol) 650 mg Q6H PRN ORAL Mild Pain/Temp > 100.5 11/27/16 20:30 12/27/16 20:29 Bupropion HCl (Wellbutrin XL) 150 mg DAILY ORAL 11/28/16 14:00 12/28/16 13:59 11/30/16 08:35 Cefepime HCl/ Dextrose (Maxipime/D5W) 100 ml @ 200 mls/hr Q12HR IVPB 11/28/16 21:00 12/05/16 20:59 11/30/16 08:40 Docusate Sodium (Colace) 100 mg BID PRN ORAL Constipation 11/28/16 06:45 12/28/16 06:44 11/30/16 16:06 Docusate Sodium (Colace) 100 mg THREE TIMES A DAY ORAL 11/28/16 09:00 12/28/16 08:59 11/30/16 13:53 Escitalopram Oxalate (Lexapro) 10 mg DAILY ORAL 11/28/16 13:30 12/28/16 13:29 11/30/16 08:35 Levothyroxine Sodium (Synthroid) 25 mcg DAILY@0630 ORAL 11/29/16 06:30 12/29/16 06:29 11/30/16 06:21 Levothyroxine Sodium (Synthroid) 150 mcg DAILY@0630 ORAL 11/29/16 06:30 12/29/16 06:29 11/30/16 06:21 Morphine Sulfate 2 mg 2 mg Q2H PRN IVP Severe Pain (Pain Scale 7-10) 11/29/16 20:00 12/06/16 19:59 11/30/16 13:53 Ondansetron HCl (Zofran) 4 mg Q6H PRN IVP Nausea & Vomiting 11/28/16 06:45 12/28/16 06:44 Oxycodone HCl (OxyCONTIN) 10 mg Q12HR ORAL 11/29/16 21:00 12/06/16 20:59 11/30/16 08:35 Oxycodone/ Acetaminophen (Percocet 10/325) 1 tab Q4H PRN ORAL Moderate Pain (Pain Scale 4-6) 11/28/16 04:15 12/05/16 04:14 11/30/16 16:01 Polyethylene Glycol (Miralax) 17 gm DAILY PRN ORAL Constipation 11/28/16 06:45 12/28/16 06:44 Temazepam (Restoril) 7.5 mg HSPRN PRN ORAL Insomnia 11/27/16 20:30 12/04/16 20:29 Vancomycin HCl 1 ea 1 ea DAILY PRN MISC Per rx protocol 11/28/16 11:00 12/28/16 10:59 Vancomycin HCl/ Dextrose (Vancomycin/D5W) 275 ml @ 183.333 mls/hr Q8H IVPB 11/30/16 03:00 12/05/16 02:59 11/30/16 11:33 Allergies: Coded Allergies: HYDROMORPHONE (Verified Allergy, Unknown, 11/27/16) ROS Limited/Unobtainable: No Constitutional: Reports: no symptoms HEENT: Reports: no symptoms Cardiovascular: Reports: no symptoms Respiratory: Reports: no symptoms Gastrointestinal/Abdominal: Reports: no symptoms Genitourinary: Reports: no symptoms Neurologic/Psychiatric: Reports: no symptoms Subjective 30YO F admitted with septic arthritis and right knee pain. S/P right knee arthroscopy on 11/27/16. Cover fro Int [facility]-Dr Montana. Objective Last Vital Signs Date Time Temp Pulse Resp B/P Pulse Ox O2 Delivery O2 Flow Rate FiO2 11/30/16 16:00 99.1 86 16 115/67 97 Room Air 11/27/16 21:57 2.0 Laboratory Tests Test 11/30/16 00:40 11/30/16 05:30 Vancomycin Level Trough 7.3 ug/mL (5.0-12.0) White Blood Count 5.8 K/UL (4.8-10.8) Red Blood Count 3.18 M/UL (4.20-5.40) L Hemoglobin 9.4 G/DL (12.0-16.0) L Hematocrit 28.6 % (37.0-47.0) L Mean Corpuscular Volume 90 FL (80-99) Mean Corpuscular Hemoglobin 29.7 PG (27.0-31.0) Mean Corpuscular Hemoglobin Concent 33.1 G/DL (32.0-36.0) Red Cell Distribution Width 10.9 % (11.6-14.8) L Platelet Count 350 K/UL (150-450) Mean Platelet Volume 6.5 FL (6.5-10.1) Neutrophils (%) (Auto) 50.0 % (45.0-75.0) Lymphocytes (%) (Auto) 30.3 % (20.0-45.0) Monocytes (%) (Auto) 14.0 % (1.0-10.0) H Eosinophils (%) (Auto) 4.2 % (0.0-3.0) H Basophils (%) (Auto) 1.5 % (0.0-2.0) Sodium Level 140 mEQ/L (135-145) Potassium Level 3.9 mEQ/L (3.4-4.9) Chloride Level 99 mEQ/L (98-107) Carbon Dioxide Level 29 mEQ/L (20-30) Anion Gap 12 (5-15) Blood Urea Nitrogen 5 mg/dL (7-23) L Creatinine 0.6 mg/dL (0.5-0.9) Estimat Glomerular Filtration Rate > 60 mL/min (>60) Glucose Level 87 mg/dL (74-106) Calcium Level 8.8 mg/dL (8.6-10.2) Intake and Output 11/29/16 11/30/16 19:00 07:00 Intake Total 480 ml 615.000 ml Balance 480 ml 615.000 ml Intake Oral 480 ml 240 ml IV Total 375.000 ml # Voids 4 6 # Bowel Movements 1 1 Objective General Appearance: WD/WN, no apparent distress, alert EENT: PERRL/EOMI, normal ENT inspection, TMs normal Neck: non-tender, normal alignment, supple, normal inspection Cardiovascular: normal peripheral pulses, normal rate, regular rhythm, no gallop/murmur, no JVD Respiratory/Chest: chest wall non-tender, lungs clear, normal breath sounds, no respiratory distress, no accessory muscle use Abdomen: normal bowel sounds, non tender, soft, no organomegaly, no mass Extremities: other - right knee dressing clean and dry Neurologic: applications support specialist II-XII grossly normal, no motor/sensory deficits Skin: normal pigmentation, warm/dry Assessment/Plan Problem List: (1) Septic arthritis of knee, right Assessment & Plan: S/P repeat arthroscopy on 11/27/16-See ortho note. Will require 4 weeks of IV vanco and cefepime per ID; await cultures. (2) Hypothyroidism Assessment & Plan: Cont levoxyl (3) Major depression Assessment & Plan: Cont welbutrin and lexapro (4) Right knee pain Assessment & Plan: Cont morphine IV and oral percocet. Status: progressing Assessment/Plan Patient will need home lalo contracted with insurance for IV antibiotics X 4 weeks; possibly Saturday - see case management note. LISA WRIGHT Nov 30, 2016 19:00
[2016-12-01] VITALS: BP 92/54
[2016-12-01] MEDS: Morphine Sulfate 2mg/ml Inj IVP PRN ×4 (00:18→17:35)
[2016-12-01] MEDS: Vancomycin 1250mg/D5W 275ml IVPB SCH ×6 (02:58→18:32)
[2016-12-01 04:00] VITALS: BP 95/58
[2016-12-01] MEDS: Levothyroxine 25mcg tab ORAL SCH (05:54)
--- NOTE | 2016-12-01 07:07 | Progress Note ---
DATE: 11/30/2016 HISTORY OF PRESENT ILLNESS: The patient is status post incision and drainage of the right knee. So far, cultures have been negative, however, the initial Gram stain was concerning for the amount of WBCs and percent of PMNs level present. The patient is actually feeling a little bit better. PHYSICAL EXAMINATION: Examination shows still some bogginess along the anterior aspect of the right knee. Mild effusion. Incision is clean, dry, and intact. Posterior calf is soft. The patient still has little discomfort along the posterolateral aspect of the knee. Neurovascular is normal. DIAGNOSTIC DATA: MRI of the right knee is reviewed and show some changes along the bone, but not sure this is consistent with osteomyelitis or whether it is more postoperative from this effusion in the knee. There is mild effusion and there is a collection in suprapatellar area which is extra-articular. ASSESSMENT: Status post arthroscopic incision and drainage, right knee. DISCUSSION: At this point, currently the cultures are negative. The MRI has some changes. It is unclear whether or not, this is something that is of concern. Either way, I think the best thing to do is to treat her six weeks with aggressive intravenous antibiotics. We can always get an MRI in three months and see if there is any changes at that point to be concerned about osteomyelitis. I discussed this with her. She has a set up for PICC line tomorrow and we will try to set up home intravenous antibiotics as well. Chilo Torres M.D. DR: ESAU JOB#: [id number] CC:
[2016-12-01 08:01] VITALS: BP 99/57
[2016-12-01] MEDS: BuPROPion XL 300mg tab ORAL SCH (10:23)
[2016-12-01] MEDS: oxyCONTIN 10mg tab ORAL SCH ×2 (10:24→21:09)
[2016-12-01] MEDS: Docusate 100mg cap ORAL SCH ×3 (10:24→17:35)
--- NOTE | 2016-12-01 11:18 | Infectious Diseases Prog Note ---
Assessment/Plan Assessment/Plan A) 1) right knee fluid analysis c/w septic arthritis, ? osteo 2) s/p I/D right knee on 11/27/16 3) bfc negative but on prior abx 4) hx pseudomonas right knee, s/p debridement, s/p watermaster abx including cipro which she is on now 5) s/p right knee arthroscopy 3 months ago 6) pmh o/w negative P) 1) vancomycin and cefepime for 6 weeks (communicated with Dr. Torres, ortho note reviewed) (day # 4 abx) 2) check final MRI reading 3) watch labs 4) d/w Dr. Torres 5) d/w patient and answered questions Subjective Constitutional: Denies: chills, fever HEENT: Denies: congestion Respiratory: Denies: shortness of breath Cardiovascular: Denies: chest pain Gastrointestinal/Abdominal: Denies: diarrhea, nausea, vomiting Neurologic: Denies: headache Psychiatric: Denies: depression Skin: Denies: rash Hematologic: Denies: bleeding Musculoskeletal: Reports: pain - + right knee pain Allergies: Coded Allergies: HYDROMORPHONE (Verified Allergy, Unknown, 11/27/16) Objective Vital Signs Last 24 Hour Vital Signs Date Time Temp Pulse Resp B/P Pulse Ox O2 Delivery O2 Flow Rate FiO2 12/01/16 08:01 97.9 80 14 99/57 100 Room Air 12/01/16 04:00 97.9 83 18 95/58 96 Room Air 12/01/16 00:00 97.7 84 18 92/54 97 Room Air 11/30/16 20:00 98.8 80 18 110/70 98 Room Air 11/30/16 16:00 99.1 86 16 115/67 97 Room Air 11/30/16 14:23 98.1 11/30/16 12:08 98.1 89 15 108/44 93 Room Air Height (Feet): 5 Height (Inches): 3.00 Weight (Pounds): 139 General Appearance: no acute distress HEENT: normocephalic, atraumatic, anicteric, mucous membranes moist, PERRL, EOMI, pharynx normal, supple, no JVD Respiratory/Chest: lungs clear, normal breath sounds, no respiratory distress, no accessory muscle use Cardiovascular: normal rate, regular rhythm, no gallop/murmur, no JVD Abdomen: normal bowel sounds, soft, non tender, no organomegaly, non distended Genitourinary: other - no villareal Extremities: no cyanosis Skin: no rash 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 normal, alert, oriented x 3, responsive Lymphatic: no neck adenopathy Musculoskeletal: no effusion Objective chest x-ray - negative mri - results pending (was done) Microbiology Date/Time Source Procedure Growth Status 11/27/16 17:15 Blood Blood Culture - Preliminary NO GROWTH AFTER 72 HOURS Resulted 11/27/16 16:30 Urine,Clean Catch Urine Culture - Final Mixed Gram Positive Organism Complete 11/27/16 14:30 Knee Right Gram Stain - Final Complete 11/27/16 14:30 Knee Right Aerobic Culture - Final NO GROWTH Complete Labs Test 11/29/16 05:35 11/30/16 00:40 11/30/16 05:30 White Blood Count 5.9 K/UL (4.8-10.8) 5.8 K/UL (4.8-10.8) Red Blood Count 2.99 M/UL (4.20-5.40) 3.18 M/UL (4.20-5.40) Hemoglobin 8.9 G/DL (12.0-16.0) 9.4 G/DL (12.0-16.0) Hematocrit 26.9 % (37.0-47.0) 28.6 % (37.0-47.0) Mean Corpuscular Volume 90 FL (80-99) 90 FL (80-99) Mean Corpuscular Hemoglobin 29.9 PG (27.0-31.0) 29.7 PG (27.0-31.0) Mean Corpuscular Hemoglobin Concent 33.2 G/DL (32.0-36.0) 33.1 G/DL (32.0-36.0) Red Cell Distribution Width 11.0 % (11.6-14.8) 10.9 % (11.6-14.8) Platelet Count 294 K/UL (150-450) 350 K/UL (150-450) Mean Platelet Volume 6.6 FL (6.5-10.1) 6.5 FL (6.5-10.1) Neutrophils (%) (Auto) 51.7 % (45.0-75.0) 50.0 % (45.0-75.0) Lymphocytes (%) (Auto) 28.4 % (20.0-45.0) 30.3 % (20.0-45.0) Monocytes (%) (Auto) 15.0 % (1.0-10.0) 14.0 % (1.0-10.0) Eosinophils (%) (Auto) 3.7 % (0.0-3.0) 4.2 % (0.0-3.0) Basophils (%) (Auto) 1.2 % (0.0-2.0) 1.5 % (0.0-2.0) Sodium Level 139 mEQ/L (135-145) 140 mEQ/L (135-145) Potassium Level 4.0 mEQ/L (3.4-4.9) 3.9 mEQ/L (3.4-4.9) Chloride Level 99 mEQ/L (98-107) 99 mEQ/L (98-107) Carbon Dioxide Level 28 mEQ/L (20-30) 29 mEQ/L (20-30) Anion Gap 12 (5-15) 12 (5-15) Blood Urea Nitrogen 4 mg/dL (7-23) 5 mg/dL (7-23) Creatinine 0.6 mg/dL (0.5-0.9) 0.6 mg/dL (0.5-0.9) Estimat Glomerular Filtration Rate > 60 mL/min (>60) > 60 mL/min (>60) Glucose Level 88 mg/dL (74-106) 87 mg/dL (74-106) Calcium Level 8.6 mg/dL (8.6-10.2) 8.8 mg/dL (8.6-10.2) Vancomycin Level Trough 7.3 ug/mL (5.0-12.0) Current Medications Medications (Trade) Dose Ordered Sig/Soraya Route PRN Reason Start Time Stop Time Status Last Admin Dose Admin Acetaminophen (Tylenol) 650 mg Q6H PRN ORAL Mild Pain/Temp > 100.5 11/27/16 20:30 12/27/16 20:29 Bupropion HCl (Wellbutrin XL) 150 mg DAILY ORAL 11/28/16 14:00 12/28/16 13:59 12/01/16 10:23 Cefepime HCl/ Dextrose (Maxipime/D5W) 100 ml @ 200 mls/hr Q12HR IVPB 11/28/16 21:00 12/05/16 20:59 12/01/16 10:23 Docusate Sodium (Colace) 100 mg BID PRN ORAL Constipation 11/28/16 06:45 12/28/16 06:44 11/30/16 16:06 Docusate Sodium (Colace) 100 mg THREE TIMES A DAY ORAL 11/28/16 09:00 12/28/16 08:59 12/01/16 10:24 Escitalopram Oxalate (Lexapro) 10 mg DAILY ORAL 11/28/16 13:30 12/28/16 13:29 12/01/16 10:23 Levothyroxine Sodium (Synthroid) 25 mcg DAILY@0630 ORAL 11/29/16 06:30 12/29/16 06:29 12/01/16 05:54 Levothyroxine Sodium (Synthroid) 150 mcg DAILY@0630 ORAL 11/29/16 06:30 12/29/16 06:29 12/01/16 05:54 Morphine Sulfate 2 mg 2 mg Q2H PRN IVP Severe Pain (Pain Scale 7-10) 11/29/16 20:00 12/06/16 19:59 12/01/16 05:55 Ondansetron HCl (Zofran) 4 mg Q6H PRN IVP Nausea & Vomiting 11/28/16 06:45 12/28/16 06:44 Oxycodone HCl (OxyCONTIN) 10 mg Q12HR ORAL 11/29/16 21:00 12/06/16 20:59 12/01/16 10:24 Oxycodone/ Acetaminophen (Percocet 10/325) 1 tab Q4H PRN ORAL Moderate Pain (Pain Scale 4-6) 11/28/16 04:15 12/05/16 04:14 12/01/16 11:12 Polyethylene Glycol (Miralax) 17 gm DAILY PRN ORAL Constipation 11/28/16 06:45 12/28/16 06:44 Temazepam (Restoril) 7.5 mg HSPRN PRN ORAL Insomnia 11/27/16 20:30 12/04/16 20:29 Vancomycin HCl 1 ea 1 ea DAILY PRN MISC Per rx protocol 11/28/16 11:00 12/28/16 10:59 Vancomycin HCl/ Dextrose (Vancomycin/D5W) 275 ml @ 183.333 mls/hr Q8H IVPB 11/30/16 03:00 12/05/16 02:59 12/01/16 11:12 SPENCER SCHWARTZ Dec 01, 2016 11:18
[2016-12-01 12:18] VITALS: BP 115/65
[2016-12-01 16:32] VITALS: BP 103/70
--- NOTE | 2016-12-01 18:37 | Internal Med Progress Note ---
Subjective Date of Service: Dec 01, 2016 Physician Name Lisa Wright Attending Physician Jj Montana MD Current Medications Medications (Trade) Dose Ordered Sig/Soraya Route PRN Reason Start Time Stop Time Status Last Admin Dose Admin Acetaminophen (Tylenol) 650 mg Q6H PRN ORAL Mild Pain/Temp > 100.5 11/27/16 20:30 12/27/16 20:29 Bupropion HCl (Wellbutrin XL) 150 mg DAILY ORAL 11/28/16 14:00 12/28/16 13:59 12/01/16 10:23 Cefepime HCl/ Dextrose (Maxipime/D5W) 100 ml @ 200 mls/hr Q12HR IVPB 11/28/16 21:00 12/05/16 20:59 12/01/16 10:23 Docusate Sodium (Colace) 100 mg BID PRN ORAL Constipation 11/28/16 06:45 12/28/16 06:44 11/30/16 16:06 Docusate Sodium (Colace) 100 mg THREE TIMES A DAY ORAL 11/28/16 09:00 12/28/16 08:59 12/01/16 17:35 Escitalopram Oxalate (Lexapro) 10 mg DAILY ORAL 11/28/16 13:30 12/28/16 13:29 12/01/16 10:23 Levothyroxine Sodium (Synthroid) 25 mcg DAILY@0630 ORAL 11/29/16 06:30 12/29/16 06:29 12/01/16 05:54 Levothyroxine Sodium (Synthroid) 150 mcg DAILY@0630 ORAL 11/29/16 06:30 12/29/16 06:29 12/01/16 05:54 Morphine Sulfate 2 mg 2 mg Q2H PRN IVP Severe Pain (Pain Scale 7-10) 11/29/16 20:00 12/06/16 19:59 12/01/16 17:35 Ondansetron HCl (Zofran) 4 mg Q6H PRN IVP Nausea & Vomiting 11/28/16 06:45 12/28/16 06:44 12/01/16 14:13 Oxycodone HCl (OxyCONTIN) 10 mg Q12HR ORAL 11/29/16 21:00 12/06/16 20:59 12/01/16 10:24 Oxycodone/ Acetaminophen (Percocet 10/325) 1 tab Q4H PRN ORAL Moderate Pain (Pain Scale 4-6) 11/28/16 04:15 12/05/16 04:14 12/01/16 11:12 Polyethylene Glycol (Miralax) 17 gm DAILY PRN ORAL Constipation 11/28/16 06:45 12/28/16 06:44 Temazepam (Restoril) 7.5 mg HSPRN PRN ORAL Insomnia 11/27/16 20:30 12/04/16 20:29 Vancomycin HCl 1 ea 1 ea DAILY PRN MISC Per rx protocol 11/28/16 11:00 12/28/16 10:59 Vancomycin HCl/ Dextrose (Vancomycin/D5W) 275 ml @ 183.333 mls/hr Q8H IVPB 11/30/16 03:00 12/05/16 02:59 12/01/16 18:32 Allergies: Coded Allergies: HYDROMORPHONE (Verified Allergy, Unknown, 11/27/16) Constitutional: Reports: no symptoms HEENT: Reports: no symptoms Cardiovascular: Reports: no symptoms Respiratory: Reports: no symptoms Gastrointestinal/Abdominal: Reports: no symptoms Genitourinary: Reports: no symptoms Neurologic/Psychiatric: Reports: no symptoms Subjective 30YO F admitted with septic arthritis and right knee pain. S/P right knee arthroscopy on 11/27/16. Cover fro Int Med-Dr Montana. Objective Last Vital Signs Date Time Temp Pulse Resp B/P Pulse Ox O2 Delivery O2 Flow Rate FiO2 12/01/16 18:05 97.7 12/01/16 16:32 89 15 103/70 97 Room Air 11/27/16 21:57 2.0 Intake and Output 11/30/16 12/01/16 19:00 07:00 Intake Total 1375.000 ml Balance 1375.000 ml Intake Oral 1000 ml IV Total 375.000 ml # Voids 2 3 # Bowel Movements 1 Objective General Appearance: WD/WN, no apparent distress, alert EENT: PERRL/EOMI, normal ENT inspection, TMs normal Neck: non-tender, normal alignment, supple, normal inspection Cardiovascular: normal peripheral pulses, normal rate, regular rhythm, no gallop/murmur, no JVD Respiratory/Chest: chest wall non-tender, lungs clear, normal breath sounds, no respiratory distress, no accessory muscle use Abdomen: normal bowel sounds, non tender, soft, no organomegaly, no mass Extremities: other - right knee dressing clean and dry 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 Will require 4 weeks of IV vanco and cefepime per ID; await cultures. (2) Hypothyroidism Assessment & Plan: Cont levoxyl (3) Major depression Assessment & Plan: Cont welbutrin and lexapro (4) Right knee pain Assessment & Plan: Cont morphine IV and oral percocet. Assessment/Plan Patient will need home lalo contracted with insurance for IV antibiotics X 4 weeks; possibly Saturday - see case management note. LISA WRIGHT Dec 01, 2016 18:37
[2016-12-01 19:56] VITALS: BP 115/67
[2016-12-02] VITALS: BP 119/59
[2016-12-02] MEDS: Morphine Sulfate 2mg/ml Inj IVP PRN ×2 (00:06→05:27)
[2016-12-02] MEDS: Vancomycin 1250mg/D5W 275ml IVPB SCH ×6 (02:46→19:00)
[2016-12-02] MEDS: Levothyroxine 25mcg tab ORAL SCH (05:30)
[2016-12-02 06:30] LABS: BASOPHILS % (AUTO) 2.2 % (0.0-2.0); EOSINOPHILS % (AUTO) 3.7 % (0.0-3.0); LYMPHOCYTES % (AUTO) 29.7 % (20.0-45.0); MEAN CORPUSCULAR HEMOGLOBIN 29.2 PG (27.0-31.0); MEAN CORPUSCULAR HGB CONC 32.6 G/DL (32.0-36.0); MEAN CORPUSCULAR VOLUME 90 FL (80-99); MEAN PLATELET VOLUME 6.6 FL (6.5-10.1); MONOCYTES % (AUTO) 15.6 % (1.0-10.0); NEUTROPHILS % (AUTO) 48.7 % (45.0-75.0); PLATELET COUNT 399 K/UL (150-450); RED BLOOD COUNT 3.23 M/UL (4.20-5.40); RED CELL DISTRIBUTION WIDTH 10.9 % (11.6-14.8); WHITE BLOOD COUNT 6.2 K/UL (4.8-10.8)
[2016-12-02 07:52] LABS: ANION GAP 14 (5-15); CALCIUM 8.6 mg/dL (8.6-10.2); CARBON DIOXIDE 28 mEQ/L (20-30); CHLORIDE 96 mEQ/L (98-107); CREATININE 0.6 mg/dL (0.5-0.9); GLOMERULAR FILTRATION RATE > 60 mL/min (>60); HEMOLYSIS 4; POTASSIUM 4.2 mEQ/L (3.4-4.9); SODIUM 138 mEQ/L (135-145)
[2016-12-02 08:14] VITALS: BP 100/55
[2016-12-02] MEDS: BuPROPion XL 300mg tab ORAL SCH (09:44)
[2016-12-02] MEDS: Docusate 100mg cap ORAL SCH ×3 (09:44→18:22)
[2016-12-02] MEDS: oxyCONTIN 10mg tab ORAL SCH ×2 (09:44→20:44)
[2016-12-02 12:17] VITALS: BP 100/54
[2016-12-02 16:00] VITALS: BP 113/70
[2016-12-02 19:00] VITALS: BP 109/50
--- NOTE | 2016-12-02 19:06 | Internal Med Progress Note ---
Subjective Date of Service: Dec 02, 2016 Physician Name Lisa Wright Attending Physician Jj Montana MD Current Medications Medications (Trade) Dose Ordered Sig/Soraya Route PRN Reason Start Time Stop Time Status Last Admin Dose Admin Acetaminophen (Tylenol) 650 mg Q6H PRN ORAL Mild Pain/Temp > 100.5 11/27/16 20:30 12/27/16 20:29 Bupropion HCl (Wellbutrin XL) 150 mg DAILY ORAL 11/28/16 14:00 12/28/16 13:59 12/02/16 09:44 Cefepime HCl/ Dextrose (Maxipime/D5W) 100 ml @ 200 mls/hr Q12HR IVPB 11/28/16 21:00 12/05/16 20:59 12/02/16 09:43 Docusate Sodium (Colace) 100 mg BID PRN ORAL Constipation 11/28/16 06:45 12/28/16 06:44 11/30/16 16:06 Docusate Sodium (Colace) 100 mg THREE TIMES A DAY ORAL 11/28/16 09:00 12/28/16 08:59 12/02/16 18:22 Escitalopram Oxalate (Lexapro) 10 mg DAILY ORAL 11/28/16 13:30 12/28/16 13:29 12/02/16 09:43 Levothyroxine Sodium (Synthroid) 25 mcg DAILY@0630 ORAL 11/29/16 06:30 12/29/16 06:29 12/02/16 05:30 Levothyroxine Sodium (Synthroid) 150 mcg DAILY@0630 ORAL 11/29/16 06:30 12/29/16 06:29 12/02/16 05:30 Morphine Sulfate 2 mg 2 mg Q2H PRN IVP Severe Pain (Pain Scale 7-10) 11/29/16 20:00 12/06/16 19:59 12/02/16 05:27 Ondansetron HCl (Zofran) 4 mg Q6H PRN IVP Nausea & Vomiting 11/28/16 06:45 12/28/16 06:44 12/01/16 14:13 Oxycodone HCl (OxyCONTIN) 10 mg Q12HR ORAL 11/29/16 21:00 12/06/16 20:59 12/02/16 09:44 Oxycodone/ Acetaminophen (Percocet 10/325) 1 tab Q4H PRN ORAL Moderate Pain (Pain Scale 4-6) 11/28/16 04:15 12/05/16 04:14 12/02/16 18:22 Polyethylene Glycol (Miralax) 17 gm DAILY PRN ORAL Constipation 11/28/16 06:45 12/28/16 06:44 Temazepam (Restoril) 7.5 mg HSPRN PRN ORAL Insomnia 11/27/16 20:30 12/04/16 20:29 Vancomycin HCl 1 ea 1 ea DAILY PRN MISC Per rx protocol 11/28/16 11:00 12/28/16 10:59 Vancomycin HCl/ Dextrose (Vancomycin/D5W) 275 ml @ 183.333 mls/hr Q8H IVPB 11/30/16 03:00 12/05/16 02:59 12/02/16 12:01 Allergies: Coded Allergies: HYDROMORPHONE (Verified Allergy, Unknown, 11/27/16) ROS Limited/Unobtainable: No Constitutional: Reports: no symptoms HEENT: Reports: no symptoms Cardiovascular: Reports: no symptoms Respiratory: Reports: no symptoms Gastrointestinal/Abdominal: Reports: no symptoms Genitourinary: Reports: no symptoms Neurologic/Psychiatric: Reports: no symptoms Subjective 30YO F admitted with septic arthritis and right knee pain. S/P right knee arthroscopy on 11/27/16. Cover fro Int [facility]-Dr Montana. Objective Last Vital Signs Date Time Temp Pulse Resp B/P Pulse Ox O2 Delivery O2 Flow Rate FiO2 12/02/16 16:00 97.0 80 20 113/70 100 Room Air 11/27/16 21:57 2.0 Laboratory Tests Test 12/02/16 05:50 White Blood Count 6.2 K/UL (4.8-10.8) Red Blood Count 3.23 M/UL (4.20-5.40) L Hemoglobin 9.4 G/DL (12.0-16.0) L Hematocrit 28.9 % (37.0-47.0) L Mean Corpuscular Volume 90 FL (80-99) Mean Corpuscular Hemoglobin 29.2 PG (27.0-31.0) Mean Corpuscular Hemoglobin Concent 32.6 G/DL (32.0-36.0) Red Cell Distribution Width 10.9 % (11.6-14.8) L Platelet Count 399 K/UL (150-450) Mean Platelet Volume 6.6 FL (6.5-10.1) Neutrophils (%) (Auto) 48.7 % (45.0-75.0) Lymphocytes (%) (Auto) 29.7 % (20.0-45.0) Monocytes (%) (Auto) 15.6 % (1.0-10.0) H Eosinophils (%) (Auto) 3.7 % (0.0-3.0) H Basophils (%) (Auto) 2.2 % (0.0-2.0) H Sodium Level 138 mEQ/L (135-145) Potassium Level 4.2 mEQ/L (3.4-4.9) Chloride Level 96 mEQ/L (98-107) L Carbon Dioxide Level 28 mEQ/L (20-30) Anion Gap 14 (5-15) Blood Urea Nitrogen 5 mg/dL (7-23) L Creatinine 0.6 mg/dL (0.5-0.9) Estimat Glomerular Filtration Rate > 60 mL/min (>60) Glucose Level 88 mg/dL (74-106) Calcium Level 8.6 mg/dL (8.6-10.2) Intake and Output 12/01/16 12/02/16 19:00 07:00 Intake Total 1775.000 ml 975.000 ml Balance 1775.000 ml 975.000 ml Intake Oral 1400 ml 600 ml IV Total 375.000 ml 375.000 ml # Voids 4 2 Objective General Appearance: WD/WN, no apparent distress, alert EENT: PERRL/EOMI, normal ENT inspection, TMs normal Neck: non-tender, normal alignment, supple, normal inspection Cardiovascular: normal peripheral pulses, normal rate, regular rhythm, no gallop/murmur, no JVD Respiratory/Chest: chest wall non-tender, lungs clear, normal breath sounds, no respiratory distress, no accessory muscle use Abdomen: normal bowel sounds, non tender, soft, no organomegaly, no mass Extremities: other - right knee dressing clean and dry 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 Will require 4 weeks of IV vanco and cefepime per ID; await cultures. (2) Hypothyroidism Assessment & Plan: Cont levoxyl (3) Major depression Assessment & Plan: Cont welbutrin and lexapro (4) Right knee pain Assessment & Plan: Cont morphine IV and oral percocet. Status: progressing Assessment/Plan Patient will need home lalo contracted with insurance for IV antibiotics X 4 weeks; possibly Saturday - see case management note. LISA WRIGHT Dec 02, 2016 19:06
[2016-12-02] MEDS ORDERED: Sodium Bicarbonate 8.4% 50ml Inj IV PRN (19:30)
[2016-12-02] MEDS ORDERED: Lidocaine 1% Plain 30 ml INJ PRN (19:30)
[2016-12-02] MEDS ORDERED: Heparin 2000 units/Ns 1000ml INJ PRN (19:30)
[2016-12-03] VITALS: BP 103/59
[2016-12-03] MEDS: Vancomycin 1250mg/D5W 275ml IVPB SCH ×4 (02:23→11:00)
[2016-12-03 04:00] VITALS: BP 103/63
[2016-12-03] MEDS: Levothyroxine 25mcg tab ORAL SCH (05:56)
[2016-12-03 07:11] LABS: BASOPHILS % (AUTO) 1.2 % (0.0-2.0); EOSINOPHILS % (AUTO) 3.5 % (0.0-3.0); LYMPHOCYTES % (AUTO) 33.5 % (20.0-45.0); MEAN CORPUSCULAR HEMOGLOBIN 28.9 PG (27.0-31.0); MEAN CORPUSCULAR HGB CONC 32.4 G/DL (32.0-36.0); MEAN CORPUSCULAR VOLUME 89 FL (80-99); MEAN PLATELET VOLUME 6.9 FL (6.5-10.1); MONOCYTES % (AUTO) 16.4 % (1.0-10.0); NEUTROPHILS % (AUTO) 45.5 % (45.0-75.0); PLATELET COUNT 393 K/UL (150-450); RED BLOOD COUNT 3.26 M/UL (4.20-5.40); RED CELL DISTRIBUTION WIDTH 11.2 % (11.6-14.8)
[2016-12-03 07:26] LABS: ANION GAP 14 (5-15); CALCIUM 8.8 mg/dL (8.6-10.2); CARBON DIOXIDE 28 mEQ/L (20-30); CHLORIDE 98 mEQ/L (98-107); CREATININE 0.6 mg/dL (0.5-0.9); GLOMERULAR FILTRATION RATE > 60 mL/min (>60); HEMOLYSIS 2; POTASSIUM 4.2 mEQ/L (3.4-4.9); SODIUM 140 mEQ/L (135-145)
[2016-12-03 09:46] VITALS: BP 113/62
[2016-12-03] MEDS: oxyCONTIN 10mg tab ORAL SCH (10:19)
[2016-12-03] MEDS: Docusate 100mg cap ORAL SCH ×3 (10:19→18:00)
[2016-12-03] MEDS: BuPROPion XL 300mg tab ORAL SCH (10:19)
[2016-12-03 11:21] VITALS: BP 124/68
--- NOTE | 2016-12-03 13:58 | Infectious Diseases Prog Note ---
Assessment/Plan Assessment/Plan A) 1) right knee fluid analysis c/w septic arthritis, ? osteo 2) s/p I/D right knee on 11/27/16 3) bfc negative but on prior abx 4) hx pseudomonas right knee, s/p debridement, s/p alf abx including cipro which she is on now 5) s/p right knee arthroscopy 3 months ago 6) pmh o/w negative P) 1) vancomycin and cefepime for 6 weeks (communicated with Dr. Torres, ortho note reviewed) (day # abx) 2) check final MRI reading 3) watch labs 4) d/w Dr. Torres 5) d/w patient and answered questions Subjective Constitutional: Denies: fever HEENT: Denies: congestion Respiratory: Denies: shortness of breath Cardiovascular: Denies: chest pain Gastrointestinal/Abdominal: Denies: diarrhea, nausea, vomiting Genitourinary: Reports: other - no villareal Neurologic: Denies: headache Psychiatric: Denies: depression Skin: Denies: rash Hematologic: Denies: bleeding Musculoskeletal: Denies: pain Allergies: Coded Allergies: HYDROMORPHONE (Verified Allergy, Unknown, 11/27/16) Objective Vital Signs Last 24 Hour Vital Signs Date Time Temp Pulse Resp B/P Pulse Ox O2 Delivery O2 Flow Rate FiO2 12/03/16 11:21 98.0 92 19 124/68 99 Room Air 12/03/16 09:46 98.2 81 19 113/62 100 Room Air 12/03/16 04:00 98.2 16 103/63 96 Room Air 12/03/16 00:00 98.1 79 18 103/59 98 Room Air 12/02/16 19:21 97.0 12/02/16 19:00 98.2 95 20 109/50 97 Room Air 12/02/16 16:00 97.0 80 20 113/70 100 Room Air Height (Feet): 5 Height (Inches): 3.00 Weight (Pounds): 139 General Appearance: no acute distress HEENT: normocephalic, atraumatic, anicteric, mucous membranes moist, PERRL, EOMI, pharynx normal, supple, no JVD Respiratory/Chest: lungs clear, normal breath sounds, no respiratory distress, no accessory muscle use Cardiovascular: normal rate, regular rhythm, no gallop/murmur, no JVD Abdomen: normal bowel sounds, soft, non tender, no organomegaly, non distended Genitourinary: other - no villareal Extremities: no cyanosis Skin: no rash 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, alert, oriented x 3, responsive Lymphatic: no neck adenopathy Musculoskeletal: no effusion Objective chest x-ray - negative mri - results pending (was done) Microbiology Date/Time Source Procedure Growth Status 11/27/16 17:15 Blood Blood Culture - Final NO GROWTH AFTER 5 DAYS Complete 11/27/16 16:30 Urine,Clean Catch Urine Culture - Final Mixed Gram Positive Organism Complete 11/27/16 14:30 Knee Right Gram Stain - Final Complete 11/27/16 14:30 Knee Right Aerobic Culture - Final NO GROWTH Complete Labs Test 12/02/16 05:50 12/03/16 05:50 12/03/16 10:00 White Blood Count 6.2 K/UL (4.8-10.8) 6.0 K/UL (4.8-10.8) Red Blood Count 3.23 M/UL (4.20-5.40) 3.26 M/UL (4.20-5.40) Hemoglobin 9.4 G/DL (12.0-16.0) 9.4 G/DL (12.0-16.0) Hematocrit 28.9 % (37.0-47.0) 29.1 % (37.0-47.0) Mean Corpuscular Volume 90 FL (80-99) 89 FL (80-99) Mean Corpuscular Hemoglobin 29.2 PG (27.0-31.0) 28.9 PG (27.0-31.0) Mean Corpuscular Hemoglobin Concent 32.6 G/DL (32.0-36.0) 32.4 G/DL (32.0-36.0) Red Cell Distribution Width 10.9 % (11.6-14.8) 11.2 % (11.6-14.8) Platelet Count 399 K/UL (150-450) 393 K/UL (150-450) Mean Platelet Volume 6.6 FL (6.5-10.1) 6.9 FL (6.5-10.1) Neutrophils (%) (Auto) 48.7 % (45.0-75.0) 45.5 % (45.0-75.0) Lymphocytes (%) (Auto) 29.7 % (20.0-45.0) 33.5 % (20.0-45.0) Monocytes (%) (Auto) 15.6 % (1.0-10.0) 16.4 % (1.0-10.0) Eosinophils (%) (Auto) 3.7 % (0.0-3.0) 3.5 % (0.0-3.0) Basophils (%) (Auto) 2.2 % (0.0-2.0) 1.2 % (0.0-2.0) Sodium Level 138 mEQ/L (135-145) 140 mEQ/L (135-145) Potassium Level 4.2 mEQ/L (3.4-4.9) 4.2 mEQ/L (3.4-4.9) Chloride Level 96 mEQ/L (98-107) 98 mEQ/L (98-107) Carbon Dioxide Level 28 mEQ/L (20-30) 28 mEQ/L (20-30) Anion Gap 14 (5-15) 14 (5-15) Blood Urea Nitrogen 5 mg/dL (7-23) 6 mg/dL (7-23) Creatinine 0.6 mg/dL (0.5-0.9) 0.6 mg/dL (0.5-0.9) Estimat Glomerular Filtration Rate > 60 mL/min (>60) > 60 mL/min (>60) Glucose Level 88 mg/dL (74-106) 93 mg/dL (74-106) Calcium Level 8.6 mg/dL (8.6-10.2) 8.8 mg/dL (8.6-10.2) Vancomycin Level Trough 4.1 ug/mL (5.0-12.0) Laboratory Tests Test 12/03/16 05:50 12/03/16 10:00 White Blood Count 6.0 K/UL (4.8-10.8) Red Blood Count 3.26 M/UL (4.20-5.40) L Hemoglobin 9.4 G/DL (12.0-16.0) L Hematocrit 29.1 % (37.0-47.0) L Mean Corpuscular Volume 89 FL (80-99) Mean Corpuscular Hemoglobin 28.9 PG (27.0-31.0) Mean Corpuscular Hemoglobin Concent 32.4 G/DL (32.0-36.0) Red Cell Distribution Width 11.2 % (11.6-14.8) L Platelet Count 393 K/UL (150-450) Mean Platelet Volume 6.9 FL (6.5-10.1) Neutrophils (%) (Auto) 45.5 % (45.0-75.0) Lymphocytes (%) (Auto) 33.5 % (20.0-45.0) Monocytes (%) (Auto) 16.4 % (1.0-10.0) H Eosinophils (%) (Auto) 3.5 % (0.0-3.0) H Basophils (%) (Auto) 1.2 % (0.0-2.0) Sodium Level 140 mEQ/L (135-145) Potassium Level 4.2 mEQ/L (3.4-4.9) Chloride Level 98 mEQ/L (98-107) Carbon Dioxide Level 28 mEQ/L (20-30) Anion Gap 14 (5-15) Blood Urea Nitrogen 6 mg/dL (7-23) L Creatinine 0.6 mg/dL (0.5-0.9) Estimat Glomerular Filtration Rate > 60 mL/min (>60) Glucose Level 93 mg/dL (74-106) Calcium Level 8.8 mg/dL (8.6-10.2) Vancomycin Level Trough 4.1 ug/mL (5.0-12.0) L Current Medications Medications (Trade) Dose Ordered Sig/Soraya Route PRN Reason Start Time Stop Time Status Last Admin Dose Admin Acetaminophen (Tylenol) 650 mg Q6H PRN ORAL Mild Pain/Temp > 100.5 11/27/16 20:30 12/27/16 20:29 Bupropion HCl (Wellbutrin XL) 150 mg DAILY ORAL 11/28/16 14:00 12/28/16 13:59 12/03/16 10:19 Cefepime HCl 2 gm/ Dextrose 100 ml @ 200 mls/hr Q12HR IVPB 12/03/16 13:00 12/10/16 12:59 12/03/16 13:19 Docusate Sodium (Colace) 100 mg BID PRN ORAL Constipation 11/28/16 06:45 12/28/16 06:44 11/30/16 16:06 Docusate Sodium (Colace) 100 mg THREE TIMES A DAY ORAL 11/28/16 09:00 12/28/16 08:59 12/03/16 13:15 Escitalopram Oxalate (Lexapro) 10 mg DAILY ORAL 11/28/16 13:30 12/28/16 13:29 12/03/16 10:18 Heparin Sodium/ Sodium Chloride 2000 unit 2,000 unit ONCE PRN INJ PICC PLACEMENT 12/02/16 19:30 12/03/16 23:59 Levothyroxine Sodium (Synthroid) 25 mcg DAILY@0630 ORAL 11/29/16 06:30 12/29/16 06:29 12/03/16 05:56 Levothyroxine Sodium (Synthroid) 150 mcg DAILY@0630 ORAL 11/29/16 06:30 12/29/16 06:29 12/03/16 05:56 Lidocaine HCl (Xylocaine 1% 30ml) 30 ml ONCE PRN INJ PICC PLACEMENT 12/02/16 19:30 12/03/16 23:59 Morphine Sulfate (Morphine Sulfate) 2 mg Q2H PRN IVP Severe Pain (Pain Scale 7-10) 11/29/16 20:00 12/06/16 19:59 12/02/16 05:27 Ondansetron HCl (Zofran) 4 mg Q6H PRN IVP Nausea & Vomiting 11/28/16 06:45 12/28/16 06:44 12/01/16 14:13 Oxycodone HCl (OxyCONTIN) 10 mg Q12HR ORAL 11/29/16 21:00 12/06/16 20:59 12/03/16 10:19 Oxycodone/ Acetaminophen (Percocet 10/325) 1 tab Q4H PRN ORAL Moderate Pain (Pain Scale 4-6) 11/28/16 04:15 12/05/16 04:14 12/03/16 04:14 Polyethylene Glycol (Miralax) 17 gm DAILY PRN ORAL Constipation 11/28/16 06:45 12/28/16 06:44 Sodium Bicarbonate (Sodium Bicarbonate) 50 ml ONCE PRN IV PICC PLACEMENT 12/02/16 19:30 12/03/16 23:59 Temazepam (Restoril) 7.5 mg HSPRN PRN ORAL Insomnia 11/27/16 20:30 12/04/16 20:29 Vancomycin HCl (Vanco rx to dose) 1 ea DAILY PRN MISC Per rx protocol 11/28/16 11:00 12/28/16 10:59 Vancomycin HCl/ Dextrose (Vancomycin/D5W) 275 ml @ 183.333 mls/hr Q8HR@0000,0800,1600 IVPB 12/03/16 16:00 12/08/16 15:59 SPENCER SCHWARTZ Dec 03, 2016 13:58
[2016-12-03] MEDS ORDERED: DOCUSATE SODIU100 M2 ORAL (14:35)
[2016-12-03] MEDS ORDERED: CEFEPIME-D2 GM/50 ML IVPB (14:38)
[2016-12-03] MEDS ORDERED: VANCOMYCIN1 GM/2502 IVPB (14:38)
[2016-12-03] MEDS ORDERED: Vancomycin 1.5 GM in D5W 325 ML IVPB SCH (16:00)
[2016-12-03] MEDS ORDERED: Tubing IV Secondary IV ONE (16:21)
--- NOTE | 2016-12-03 19:13 | Internal Med Progress Note ---
Subjective Date of Service: Dec 03, 2016 Physician Name Dc Wright Attending Physician Jj Montana MD Current Medications Medications (Trade) Dose Ordered Sig/Soraya Route PRN Reason Start Time Stop Time Status Last Admin Dose Admin Acetaminophen (Tylenol) 650 mg Q6H PRN ORAL Mild Pain/Temp > 100.5 11/27/16 20:30 12/27/16 20:29 Bupropion HCl (Wellbutrin XL) 150 mg DAILY ORAL 11/28/16 14:00 12/28/16 13:59 12/03/16 10:19 Cefepime HCl 2 gm/ Dextrose 100 ml @ 200 mls/hr Q12HR IVPB 12/03/16 13:00 12/10/16 12:59 12/03/16 13:19 Docusate Sodium (Colace) 100 mg BID PRN ORAL Constipation 11/28/16 06:45 12/28/16 06:44 11/30/16 16:06 Docusate Sodium (Colace) 100 mg THREE TIMES A DAY ORAL 11/28/16 09:00 12/28/16 08:59 12/03/16 13:15 Escitalopram Oxalate (Lexapro) 10 mg DAILY ORAL 11/28/16 13:30 12/28/16 13:29 12/03/16 10:18 Heparin Sodium/ Sodium Chloride 2000 unit 2,000 unit ONCE PRN INJ PICC PLACEMENT 12/02/16 19:30 12/03/16 23:59 Levothyroxine Sodium (Synthroid) 25 mcg DAILY@0630 ORAL 11/29/16 06:30 12/29/16 06:29 12/03/16 05:56 Levothyroxine Sodium (Synthroid) 150 mcg DAILY@0630 ORAL 11/29/16 06:30 12/29/16 06:29 12/03/16 05:56 Lidocaine HCl (Xylocaine 1% 30ml) 30 ml ONCE PRN INJ PICC PLACEMENT 12/02/16 19:30 12/03/16 23:59 Morphine Sulfate (Morphine Sulfate) 2 mg Q2H PRN IVP Severe Pain (Pain Scale 7-10) 11/29/16 20:00 12/06/16 19:59 12/02/16 05:27 Ondansetron HCl (Zofran) 4 mg Q6H PRN IVP Nausea & Vomiting 11/28/16 06:45 3/3/17 06:44 12/01/16 14:13 Oxycodone HCl (OxyCONTIN) 10 mg Q12HR ORAL 11/29/16 21:00 12/06/16 20:59 12/03/16 10:19 Oxycodone/ Acetaminophen (Percocet 10/325) 1 tab Q4H PRN ORAL Moderate Pain (Pain Scale 4-6) 11/28/16 04:15 12/05/16 04:14 12/03/16 16:07 Polyethylene Glycol (Miralax) 17 gm DAILY PRN ORAL Constipation 11/28/16 06:45 12/28/16 06:44 Sodium Bicarbonate (Sodium Bicarbonate) 50 ml ONCE PRN IV PICC PLACEMENT 12/02/16 19:30 12/03/16 23:59 Temazepam (Restoril) 7.5 mg HSPRN PRN ORAL Insomnia 11/27/16 20:30 12/04/16 20:29 Vancomycin HCl (Vanco rx to dose) 1 ea DAILY PRN MISC Per rx protocol 11/28/16 11:00 12/28/16 10:59 Vancomycin HCl/ Dextrose (Vancomycin/D5W) 275 ml @ 183.333 mls/hr Q8HR@0000,0800,1600 IVPB 12/04/16 00:00 12/09/16 00:00 Allergies: Coded Allergies: HYDROMORPHONE (Verified Allergy, Unknown, 11/27/16) ROS Limited/Unobtainable: No Constitutional: Reports: no symptoms HEENT: Reports: no symptoms Cardiovascular: Reports: no symptoms Respiratory: Reports: no symptoms Gastrointestinal/Abdominal: Reports: no symptoms Genitourinary: Reports: no symptoms Neurologic/Psychiatric: Reports: no symptoms Subjective 30YO F admitted with septic arthritis and right knee pain. S/P right knee arthroscopy on 11/27/16. Cover fro Int Med-Dr Montana. Await discharge home with home health for IV antibiotic. Objective Last Vital Signs Date Time Temp Pulse Resp B/P Pulse Ox O2 Delivery O2 Flow Rate FiO2 12/03/16 17:06 98.0 12/03/16 11:21 92 19 124/68 99 Room Air 11/27/16 21:57 2.0 Laboratory Tests Test 12/03/16 05:50 2/6/17 10:00 White Blood Count 6.0 K/UL (4.8-10.8) Red Blood Count 3.26 M/UL (4.20-5.40) L Hemoglobin 9.4 G/DL (12.0-16.0) L Hematocrit 29.1 % (37.0-47.0) L Mean Corpuscular Volume 89 FL (80-99) Mean Corpuscular Hemoglobin 28.9 PG (27.0-31.0) Mean Corpuscular Hemoglobin Concent 32.4 G/DL (32.0-36.0) Red Cell Distribution Width 11.2 % (11.6-14.8) L Platelet Count 393 K/UL (150-450) Mean Platelet Volume 6.9 FL (6.5-10.1) Neutrophils (%) (Auto) 45.5 % (45.0-75.0) Lymphocytes (%) (Auto) 33.5 % (20.0-45.0) Monocytes (%) (Auto) 16.4 % (1.0-10.0) H Eosinophils (%) (Auto) 3.5 % (0.0-3.0) H Basophils (%) (Auto) 1.2 % (0.0-2.0) Sodium Level 140 mEQ/L (135-145) Potassium Level 4.2 mEQ/L (3.4-4.9) Chloride Level 98 mEQ/L (98-107) Carbon Dioxide Level 28 mEQ/L (20-30) Anion Gap 14 (5-15) Blood Urea Nitrogen 6 mg/dL (7-23) L Creatinine 0.6 mg/dL (0.5-0.9) Estimat Glomerular Filtration Rate > 60 mL/min (>60) Glucose Level 93 mg/dL (74-106) Calcium Level 8.8 mg/dL (8.6-10.2) Vancomycin Level Trough 4.1 ug/mL (5.0-12.0) L Intake and Output 12/02/16 12/03/16 19:00 07:00 Intake Total 1375.000 ml 240 ml Balance 1375.000 ml 240 ml Intake Oral 1000 ml 240 ml IV Total 375.000 ml # Voids 2 6 Objective General Appearance: WD/WN, no apparent distress, alert EENT: PERRL/EOMI, normal ENT inspection, TMs normal Neck: non-tender, normal alignment, supple, normal inspection Cardiovascular: normal peripheral pulses, normal rate, regular rhythm, no gallop/murmur, no JVD Respiratory/Chest: chest wall non-tender, lungs clear, normal breath sounds, no respiratory distress, no accessory muscle use Abdomen: normal bowel sounds, non tender, soft, no organomegaly, no mass Extremities: other - right knee dressing clean and dry 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 Will require 4 weeks of IV vanco and cefepime per ID; await cultures. (2) Hypothyroidism Assessment & Plan: Cont levoxyl (3) Major depression Assessment & Plan: Cont welbutrin and lexapro (4) Right knee pain Assessment & Plan: Cont morphine IV and oral percocet. Status: stable Assessment/Plan D/C home today with [facility] to administer IV antibiotics X 4 weeks. DC WRIGHT Dec 03, 2016 19:13
[2016-12-03] MEDS ORDERED: PERCOCET 10-321 EAC1 PO (19:27)
[2016-12-04] MEDS ORDERED: Vancomycin 1250mg/D5W 275ml IVPB SCH ×2
--- NOTE | 2016-12-04 09:09 | Diagnostic Imaging Report ---
Indications: Needs long-term IV access Technique: Ultrasound confirms patent compressible left basilic vein. Total sterile technique, including sterile probe cover and sterile gel, hat, mask,, sterile gown, large sterile drape, and preparation with 2% chlorhexidine utilized. Local anesthesia with 1% lidocaine. Under real-time ultrasound guidance, puncture basilic vein using 21-gauge needle, documented and archived, passage 0.018 guidewire under direct fluoroscopy, which was used to determine appropriate catheter length, exchange for 5 Greek peel-away sheath. 5 Greek Bard dual-lumen power PICC cut to 40 cm. It was inserted through the peel-away sheath. Peel-away sheath and guidewire removed. Catheter fixed to the skin. Both catheter ports aspirated and flushed. Patient tolerated procedure well, without immediate complication. Digital radiograph documents satisfactory catheter tip position, at the cavoatrial junction. Total fluoroscopy time 2.1 minutes. Total dose area product 1.5 dGycm2 Impression: Successful placement of left arm PICC under sonographic and fluoroscopic guidance, as described above.
--- NOTE | 2016-12-04 14:29 | Discharge Summary ---
Discharge Summary Hospital Course Date of Admission Nov 27, 2016 at 16:50 Date of Discharge Dec 03, 2016 at 19:52 Admitting Diagnosis Knee infection HPI Kimberly Laguna is a 31 year old female who was admitted on Nov 27, 2016 at 16: 50 for Knee Infection (Right) Hospital Course dc summary dictated #[id number] Discharge Medications Continued Medications: Bupropion Hcl* (Wellbutrin*) 300 Mg Tab.er.24h 150 MG ORAL DAILY, #30 TAB 0 Refills Cefepime Hcl/D5w (Cefepime-Dextrose 2 Gm/50 Ml) 2 Gm/50 Ml Piggyback 2 GM IVPB Q12HR for 37 Days, BAG Docusate Sodium (Docusate Sodium) 100 Mg Tablet 100 MG ORAL TID, #60 TAB 0 Refills Escitalopram Oxalate (Escitalopram Oxalate*) 10 Mg Tablet 10 MG ORAL DAILY, #30 TAB 0 Refills Levothyroxine Sodium (Levothyroxine Sodium) 175 Mcg Tablet 175 MCG ORAL DAILY, TAB Take in the morning on an empty stomach, at least 30 minutes before food. Oxycodone HCl/Acetaminophen (Percocet 10-325 mg Tablet) 1 Each Tablet 1 EACH PO Q4HR PRN for For Pain, TAB Vancomycin Hcl/D5w (Vancomycin-D5w 1 G/250 Ml) 1 Gm/250 Ml Plast..bag 1.25 GM IVPB Q8HR for 37 Days, BAG Discharge Condition Upon Discharge: stable Discharge Disposition Patient was discharged to Home with Home Health(06) Discharge Diagnoses: Discharge Instructions Discharge Instructions Special Instructions I have been assigned to complete a D/C Summary on this account. I was not involved in the patient management Cecy Castellanos NP (Vanchtein) Dec 04, 2016 14:29
--- NOTE | 2016-12-05 03:47 | Discharge Summary 2 SIG ---
DATE OF ADMISSION: 11/27/2016 DATE OF DISCHARGE: 12/03/2016 REASON FOR ADMISSION: 31-year-old female, who undergone approximately three months ago, uncomplicated right knee arthroscopy, was traveled to [facility] about six weeks later. Subsequently, she developed acute right knee pain and swelling. She went to the hospital and was ultimately diagnosed with Pseudomonas infection. She was treated with long-term antibiotic. Subsequently, she came back to [place] and continued to have recurrent and significant right knee pain and edema. She contacted Dr. Torres, who performed initial arthroscopy. When she called Dr. Torres, she stated, that she had significant swelling in her right knee, and Dr. Torres asked her to make appointment with him. Upon presentation in the office, she had a warm and swollen knee and very painful on palpation and range of motion. Given history of prior Pseudomonas and overall clinical history, the orthopedic surgeon was concerned about possible septic arthritis. She underwent aspiration in the office, which revealed bloody cloudy fluid. Given the previous history of infection, doctor decided to treat for possible septic joint. She was sent to emergency room. The patient was admitted for urgent incision and drainage to be done in the hospital. Upon presentation, the patient had no leukocytosis, significantly elevated sedimentation rate of 112. She presented with mild anemia and stable electrolytes. CRP elevated at 7.7. Urine showed moderate bacteria, but no pyuria. test was negative. Fluid cultures done in the office consistent with the septic arthritis. The patient was admitted to the hospital. ADMITTING DIAGNOSES: : 1. Possible right septic knee 2. Right knee pain 3. Status post right knee arthroscopy. 4. History of right knee Pseudomonas infection, status post treatment. HOSPITAL COURSE: The orthopedic surgeon followed. The patient undergone on 11/27/2016 arthroscopy with arthroscopic irrigation and debridement of the right knee, synovectomy medial and lateral patellofemoral compartments, and medial and lateral meniscectomy. ID doctor was involved in care of this patient. Orthopedic and ID closely followed the patient. The patient was on vancomycin and cefepime. PICC line was placed for long-term management of the IV antibiotics. Pain management provided. DVT and GI prophylaxes provided. Per ID, the patient will need vancomycin and cefepime for six weeks and need additional 37 days upon discharge. Follow up with the lab work as per home health nursing. MRI of the right knee to rule out osteomyelitis, can be done as outpatient The fluid analysis of the right knee was consistent with septic arthritis. Blood cultures were negative. However, the patient was prior on antibiotics. Again, no leukocytosis and no fever. Urine showed mixed gram-positive organism. Hemoglobin and hematocrit on the baseline, no trend down. Synthroid was continued. The patient is on Lexapro and Wellbutrin , continue. Follow up as outpatient with Dr. Torres. DISCHARGE DIAGNOSES: 1. Right knee septic arthritis. 2. Degenerative tear of medial and lateral meniscus. 3. Intra-articular adhesions. 4. Partial tear of anterior lateral bundle and anterior cruciate ligament. 5. Status post arthroscopic irrigation and debridement right knee with synovectomy medial and lateral patellofemoral compartment and the medial and lateral partial meniscectomy. 6. Recent history of right knee arthroscopy. 7. Recent history of right knee Pseudomonas infection. 8. Possible osteomyelitis. 9. Hypothyroidism. 10. Major depression. 11. Anemia. DISCHARGE MEDICATIONS: See medication reconciliation list. The patient will need 37 more days of intravenous vancomycin and cefepime with periodic blood work. DISCHARGE INSTRUCTIONS: The patient was discharged home with home health to follow for IV antibiotics. Follow up with the orthopedic surgeon as specified. Jj Montana M.D. I have been assigned to dictate discharge summary on this account and I was not involved in the patient's management. Cecy Castellanos (Vanchtein) N.P. DR: ASH JOB#: [id number] CC: [place]
--- NOTE | 2016-12-17 08:49 | Diagnostic Imaging Report ---
Indication: 30-year-old female with aspiration confirmed septic arthritis. Status post incision and drainage and debridement. Technique: MRI of the right knee was imaged in a 1.5 Gege magnet. Pulse sequences obtained include multiplanar T1 fast spin-echo and STIR. No gadolinium given. Comparison: None Findings: There is a moderate joint effusion present within the right knee. The effusion is heterogeneous. There is thickening and moderate distention of the joint capsule. Moderate degree of air noted within the joint space in keeping with the given history of recent debridement. Surrounding subcutaneous edema also demonstrated and consistent with cellulitis. Scattered areas of T2 hyperintense bone marrow edema are demonstrated on both sides of the joint, especially at the subchondral bone, perisynovial regions and bare areas. Bone marrow signal abnormalities are more pronounced on STIR than on T1. Some of the bone marrow signal abnormalities particularly on STIR are expected with septic arthritis and may represent reactive perisynovial edema. The Low T1 signal abnormalities seen are more concerning for osteomyelitis and are present at the tibial spines and the lateral tibial plateau. Followup MRI is recommended. The examination was not performed for evaluation of internal derangement and as such the evaluation of the articular cartilage and menisci are not adequate on this examination. That said, the posterior horn of the medial meniscus is abnormal. This is probably not related to infection. Rather, this is likely related to prior meniscectomy or degenerative meniscal tear. Please correlate with the arthroscopic report and history. Impression: Moderate, heterogeneous joint effusion with subchondral and perisynovial edema consistent with septic arthritis. Osteomyelitis is a concern given a moderate degree of T1 hypointense signal particularly in the intercondylar region and the lateral tibial plateau. Followup is recommended.
[2016-12-31] MEDS ORDERED: CUBICIN RF500 MG IV (13:13)
[2016-12-31] MEDS ORDERED: MEROPENEM-1 GM/50 ML IV (13:13)
== END 2016-12-03 19:52 | disposition home health service (06) | DRG 486 ==
LOC: EMR 16:49 → 4E 16:50 → EDBEDREQ 18:51 → 4E 11-28 00:37
DX: M00.861 Arthritis due to other bacteria, right knee (principal); L03.115 Cellulitis of right lower limb; M86.8X6 Other osteomyelitis, lower leg; M23.200 Derangement of unspecified lateral meniscus due to old tear or injury, right knee; M23.203 Derangement of unspecified medial meniscus due to old tear or injury, right knee; M23.8X1 Other internal derangements of right knee; E03.9 Hypothyroidism, unspecified; F32.9 Major depressive disorder, single episode, unspecified; D64.9 Anemia, unspecified; Z88.6 Allergy status to analgesic agent
CPT/HCPCS: 36415; 36569; 71010; 76937; 80048; 80053; 80202; 81003; 81025; 83605; 85025; 85610; 85651; 85730; 86140; 86850; 86900; 86901; 87040; 87070; 87075; 87086; 87205; 89051; 89060; 93005; 94003; 94150; J2250; J2405

== ENCOUNTER 2016-12-25 12:45 | Inpatient (IN) | payer OTHER ==
[~2016-12-25] VITALS: Ht 162.6 cm; Wt 62.6 kg
[~2016-12-25 12:45] MED LIST changes: +BUPROPION XL300 MG ORAL; +CEFEPIME-D2 GM/50 ML IVPB; +CIPRO500 MG PO; +DOCUSATE SODIU100 M2 ORAL; +IRON18 M1 PO; +LEVOTHYROXINE125 MCG ORAL; +LEXAPRO10 MG ORAL; +PERCOCET 10-321 EAC1 PO; +SENNA LAXATIVE8.6 MG PO; +VANCOMYCIN1 GM/2502 IVPB; +Vit E PO; +[UNRECOGNIZED DRUG - OTHER]; +[UNRECOGNIZED DRUG - OTHER] PO
[2016-12-25 14:56] VITALS: BP 124/62
[2016-12-25 16:00] VITALS: BP 116/63
[2016-12-25 16:45] LABS: MEAN CORPUSCULAR HEMOGLOBIN 28.9 PG (27.0-31.0); MEAN CORPUSCULAR HGB CONC 32.8 G/DL (32.0-36.0); MEAN CORPUSCULAR VOLUME 88 FL (80-99); MEAN PLATELET VOLUME 7.2 FL (6.5-10.1); PLATELET COUNT 170 K/UL (150-450); RED CELL DISTRIBUTION WIDTH 13.7 % (11.6-14.8)
[2016-12-25 16:54] LABS: WHITE BLOOD COUNT 0.8 K/UL (4.8-10.8)
[2016-12-25 16:56] LABS: ALANINE AMINOTRANSFERASE 12 U/L (3-33); ALBUMIN/GLOBULIN RATIO 1.3 (1.0-2.7); ANION GAP 14 (5-15); ASPARTATE AMINO TRANSFERASE 17 U/L (5-40); CALCIUM 8.9 mg/dL (8.6-10.2); CARBON DIOXIDE 24 mEQ/L (20-30); CHLORIDE 101 mEQ/L (98-107); CREATININE 0.6 mg/dL (0.5-0.9); GLOMERULAR FILTRATION RATE > 60 mL/min (>60); HEMOLYSIS 3; SODIUM 139 mEQ/L (135-145); TOTAL PROTEIN 6.8 g/dL (6.6-8.7)
[2016-12-25 17:55] LABS: EOSINOPHILS % (MANUAL) 2 % (0-3); LYMPHOCYTES % (MANUAL) 92 % (20-45); TOTAL CELLS COUNTED 100
[2016-12-25 17:56] LABS: BAND NEUTROPHILS % (MANUAL) 0 % (0-8); BASOPHILS % (MANUAL) 0 % (0-2); NEUTROPHILS % (MANUAL) 0 % (45-75); PLATELET ESTIMATE ADEQUATE; PLATELET MORPHOLOGY NORMAL; POLYCHROMASIA 1+
--- NOTE | 2016-12-25 19:03 | History & Physical ---
History and Physical History & Physicial Dictated for Int Med-Dr Montana no. [id number]. LISA WRIHGT Dec 25, 2016 19:03
--- NOTE | 2016-12-25 19:56 | Infectious Diseases Prog Note ---
Assessment/Plan Assessment/Plan HPI: 31 yo known to me, asked to see patient with hx of pseudomonas septic arthritis that failed cipro therapy. I saw patient on last admission and patient had debridement and treated for patient for septic arthritis based on aspiration of right knee joint and analysis. Culture was negative but patient on previous abx. MRI of right knee was concerning for osteo based on report. Patient was started on vancomycin and cefepime and then changed to daptomycin and cefepime. Patient has received 4 weeks of abx as of today, plan was 6 weeks abx. Patient was noted to have a wbc count of 1.2 and I was called by the home health pharmacist and told her to tell patient to come to [facility] and I told patient to come also. Patient wbc today is 0.8, patient was admitted to hospital. Last week patients wbc was normal on her weekly labs. 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 carbapenem 4) d/w Dr. Torres 5) d/w patient and answered questions 6) communicated with Dr. Montana 7) consider hen/onc evaluation if neutropenia does not improve Subjective Constitutional: Reports: fatigue, other, Denies: chills, fever HEENT: Denies: congestion Respiratory: Denies: shortness of breath Cardiovascular: Denies: chest pain Gastrointestinal/Abdominal: Denies: diarrhea, nausea, vomiting Genitourinary: Reports: other - no villareal, Denies: dysuria, frequency, hematuria Neurologic: Denies: headache, numbness Psychiatric: Denies: depression Skin: Denies: rash Musculoskeletal: Reports: other - much less knee pain, Denies: pain Allergies: Coded Allergies: HYDROMORPHONE (Verified Allergy, Unknown, 11/27/16) Objective Vital Signs Last 24 Hour Vital Signs Date Time Temp Pulse Resp B/P Pulse Ox O2 Delivery O2 Flow Rate FiO2 12/25/16 18:11 97.9 12/25/16 16:00 97.9 97 18 116/63 99 Room Air 12/25/16 14:56 98.1 84 20 124/62 98 Room Air Height (Feet): 5 Height (Inches): 4.00 Weight (Pounds): 138 General Appearance: no acute distress HEENT: normocephalic, atraumatic, anicteric, mucous membranes moist, PERRL, EOMI, pharynx normal, supple, no JVD Respiratory/Chest: lungs clear, normal breath sounds, no respiratory distress, no accessory muscle use Cardiovascular: normal rate, regular rhythm, no gallop/murmur Abdomen: normal bowel sounds, soft, non tender, no organomegaly, non distended Genitourinary: other - no villareal Extremities: no cyanosis Skin: no rash Neurologic/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, alert, oriented x 3, responsive Lymphatic: no neck adenopathy Musculoskeletal: no effusion, other - right knee with much less swelling and rom good, no cellultis Objective previous mri right knee - was consistent with septic arthritis and concerning for osteomyelitis right knee culture on previous admission - no growth culture from previous out of state hospital was + for pseudomonas and sensitivities reviewed at my office Laboratory Tests Test 12/25/16 16:00 White Blood Count 0.8 K/UL (4.8-10.8) *L Red Blood Count 3.60 M/UL (4.20-5.40) L Hemoglobin 10.4 G/DL (12.0-16.0) L Hematocrit 31.7 % (37.0-47.0) L Mean Corpuscular Volume 88 FL (80-99) Mean Corpuscular Hemoglobin 28.9 PG (27.0-31.0) Mean Corpuscular Hemoglobin Concent 32.8 G/DL (32.0-36.0) Red Cell Distribution Width 13.7 % (11.6-14.8) Platelet Count 170 K/UL (150-450) Mean Platelet Volume 7.2 FL (6.5-10.1) Neutrophils (%) (Auto) % (45.0-75.0) Lymphocytes (%) (Auto) % (20.0-45.0) Monocytes (%) (Auto) % (1.0-10.0) Eosinophils (%) (Auto) % (0.0-3.0) Basophils (%) (Auto) % (0.0-2.0) Differential Total Cells Counted 100 Neutrophils % (Manual) 0 % (45-75) L Lymphocytes % (Manual) 92 % (20-45) H Monocytes % (Manual) 6 % (1-10) Eosinophils % (Manual) 2 % (0-3) Basophils % (Manual) 0 % (0-2) Band Neutrophils 0 % (0-8) Platelet Estimate Adequate Platelet Morphology Normal Polychromasia 1+ Sodium Level 139 mEQ/L (135-145) Potassium Level 4.0 mEQ/L (3.4-4.9) Chloride Level 101 mEQ/L (98-107) Carbon Dioxide Level 24 mEQ/L (20-30) Anion Gap 14 (5-15) Blood Urea Nitrogen 10 mg/dL (7-23) Creatinine 0.6 mg/dL (0.5-0.9) Estimat Glomerular Filtration Rate > 60 mL/min (>60) Glucose Level 151 mg/dL (74-106) H Calcium Level 8.9 mg/dL (8.6-10.2) Total Bilirubin 0.4 mg/dL (0.0-1.2) Aspartate Amino Transf (AST/SGOT) 17 U/L (5-40) Alanine Aminotransferase (ALT/SGPT) 12 U/L (3-33) Alkaline Phosphatase 64 U/L (35-104) Total Protein 6.8 g/dL (6.6-8.7) Albumin 3.9 g/dL (3.5-5.2) Globulin 2.9 g/dL Albumin/Globulin Ratio 1.3 (1.0-2.7) Current Medications Medications (Trade) Dose Ordered Sig/Soraya Route PRN Reason Start Time Stop Time Status Last Admin Dose Admin Bupropion HCl (Wellbutrin XL) 300 mg BID ORAL 12/26/16 09:00 01/25/17 08:59 UNV Dextrose (Dextrose 50%) STAT PRN IV Hypoglycemia 12/25/16 15:15 01/24/17 15:14 Docusate Sodium (Colace) 100 mg EVERY 12 HOURS ORAL 12/25/16 21:00 01/24/17 20:59 Escitalopram Oxalate (Lexapro) 10 mg DAILY ORAL 12/26/16 09:00 01/25/17 08:59 Folic Acid (Folate) 1 mg DAILY ORAL 12/26/16 09:00 01/25/17 08:59 Heparin Sodium (Porcine) (Heparin 5000 units/ml) 5,000 units EVERY 12 HOURS SUBQ 12/25/16 21:00 01/24/17 20:59 Levothyroxine Sodium (Synthroid) 75 mcg DAILY@0630 ORAL 12/26/16 06:30 01/25/17 06:29 Levothyroxine Sodium (Synthroid) 100 mcg DAILY@0630 ORAL 12/26/16 06:30 01/25/17 06:29 Multivitamins (Multivitamins) 1 tab DAILY ORAL 12/26/16 09:00 01/25/17 08:59 Oxycodone/ Acetaminophen (Percocet 10/325) 1 tab Q4H PRN ORAL Severe Pain (Pain Scale 7-10) 12/25/16 15:15 01/01/17 15:14 12/25/16 17:12 Sennosides (Senokot) 17.2 mg DAILYPRN PRN ORAL Constipation 12/25/16 15:15 01/24/17 15:14 Vitamin E (Vitamin E) 400 intlu DAILY ORAL 12/26/16 09:00 01/25/17 08:59 SPENCER SCHWARTZ Dec 25, 2016 19:56
[2016-12-25 20:00] VITALS: BP 107/59
[2016-12-25] MEDS: Docusate 100mg cap ORAL SCH (21:37)
[2016-12-25] MEDS: Heparin 5000 units/ml inj SUBQ SCH (21:38)
--- NOTE | 2016-12-25 22:18 | History and Physical Report ---
DATE OF ADMISSION: 12/25/2016 CHIEF COMPLAINT: The patient is a 31-year-old white female with history of septic arthritis of the right knee, who presents with chief complaint of leukopenia. HISTORY OF PRESENT ILLNESS: The patient was admitted to [facility] from 11/27/2016 through 12/03/2016. The patient was found to have septic arthritis. The patient underwent a right knee diagnostic arthroscopy by Dr. Torres during the hospitalization. The patient was discharged home on six weeks of intravenous vancomycin and cefepime. Please see history and physical and discharge summary dictated at that time. The patient has been receiving Cubicin and cefepime as an outpatient intravenously. The patient has blood tests drawn every Saturday. Laboratory studies from 12/24/2016 showed leukopenia. The patient was directly admitted to [facility] for leukopenia and possible neutropenic fever. REVIEW OF SYSTEMS: Constitutional: The patient denies weight loss of weight gain. The patient denies fevers or chills. HEENT: The patient denies ear or throat pain. Cardiovascular: The patient denies palpitations or chest pain. Chest: The patient denies wheezes or shortness of breath. Abdominal: The patient denies nausea, vomiting, diarrhea, or constipation. Genitourinary: The patient denies dysuria or increased frequency of urination. Neuromuscular: The patient denies seizures or generalized weakness. PAST MEDICAL HISTORY: Significant for: 1. Hypothyroidism. 2. Septic arthritis as above. 3. Major depression. CURRENT MEDICATIONS: 1. Cubicin intravenously. 2. Cefepime intravenously. 3. Wellbutrin 150 mg one tablet p.o. daily. 4. Lexapro 10 mg one tablet p.o. daily. 5. Iron sulfate 325 mg one tablet p.o. daily. 6. Levoxyl 0.125 mg one tablet p.o. daily. ALLERGIES: To hydromorphone. SOCIAL HISTORY: The patient is single, however, has long-term boyfriend. The patient denies tobacco or alcohol use. 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 PHYSICAL EXAMINATION: VITAL SIGNS: Temperature 98.1, respirations 20, pulse 84, and blood pressure 124/62. GENERAL: The patient is a well-developed and well-nourished white female, in no apparent distress. HEENT: Eyes, pupils are equal and responsive to light and accommodation. Extraocular movements are intact. NECK: Supple without lymphadenopathy. CHEST: Lungs are clear to auscultation bilaterally without wheezes or rales. CARDIOVASCULAR: Regular rhythm and rate. S1 and S2 are normal without murmurs, rubs, or gallops. ABDOMEN: Soft, nontender, and nondistended. Positive bowel sounds. No evidence of hepatosplenomegaly. Currently, no rebound or guarding noted. EXTREMITIES: Negative for clubbing, cyanosis, or edema. RECTAL/GENITAL: Refused. NEUROLOGIC: Cranial nerves II through XII are grossly intact without focal deficits. Motor strength is 5/5 bilaterally. Deep tendon reflexes are 2+ plantar. LABORATORY STUDIES: WBC 0.8, hemoglobin 10.4, hematocrit 31.7, platelets 178,000 with 0% neutrophils, 92% lymphocytes, 6% monocytes, and 2% eosinophils. Sodium 139, potassium 4.0, chloride 101, CO2 24, BUN 10, creatinine 0.6, and glucose 151. ASSESSMENT: This is a 31-year-old white female with: 1. Leukopenia. 2. Neutropenia. 3. History of septic arthritis of the right knee. 4. Hypothyroidism. 5. Depression. TREATMENT: 1. Leukopenia/neutropenia. An Infectious Disease consultation was obtained with Dr. Cárdenas. Cubicin and cefepime have been at this point. Blood cultures are pending. We will follow recommendation of Dr. Cárdenas. 2. Septic arthritis of right knee as above. An Orthopedic consultation has been obtained with Dr. Gaurav Torres. Then, cefepime increases as above. We will follow recommendations of Infectious Disease and Orthopedic. 3. Hypothyroidism. Continue Levoxyl. 4. Depression. Continue Wellbutrin and Lexapro as above. Dc Berumen M.D. DR: ALEXANDRE JOB#: [id number] CC:
[2016-12-26 01:00] VITALS: BP 113/63
[2016-12-26 04:00] VITALS: BP 108/70
[2016-12-26] MEDS ORDERED: MULTI VITAMIN1 EACH ORAL (07:51)
[2016-12-26 08:00] LABS: MEAN CORPUSCULAR HEMOGLOBIN 28.8 PG (27.0-31.0); MEAN CORPUSCULAR HGB CONC 33.3 G/DL (32.0-36.0); MEAN CORPUSCULAR VOLUME 86 FL (80-99); MEAN PLATELET VOLUME 7.7 FL (6.5-10.1); PLATELET COUNT 180 K/UL (150-450); RED CELL DISTRIBUTION WIDTH 13.4 % (11.6-14.8); WHITE BLOOD COUNT 2.2 K/UL (4.8-10.8)
[2016-12-26 08:05] LABS: APPEARANCE,URINE CLEAR; KETONES,URINE NEGATIVE (NEGATIVE); LEUKOCYTE ESTERASE ,URINE NEGATIVE (NEGATIVE); NITRITE,URINE NEGATIVE (NEGATIVE); PH,URINE 6.5 (4.5-8.0); PROTEIN,URINE NEGATIVE (NEGATIVE); UROBILINOGEN,URINE NORMAL MG/DL (0.0-1.0)
[2016-12-26 08:18] LABS: ANION GAP 13 (5-15); CALCIUM 8.6 mg/dL (8.6-10.2); CARBON DIOXIDE 26 mEQ/L (20-30); CHLORIDE 100 mEQ/L (98-107); CREATININE 0.5 mg/dL (0.5-0.9); GLOMERULAR FILTRATION RATE > 60 mL/min (>60); HEMOLYSIS 0; POTASSIUM 3.7 mEQ/L (3.4-4.9); SODIUM 139 mEQ/L (135-145)
[2016-12-26] MEDS ORDERED: BuPROPion SR 150mg tab ORAL ONE (09:00)
[2016-12-26 10:12] VITALS: BP 91/49
[2016-12-26] MEDS: Docusate 100mg cap ORAL SCH ×2 (10:17→20:34)
[2016-12-26] MEDS: Heparin 5000 units/ml inj SUBQ SCH ×2 (10:19→20:35)
[2016-12-26 11:13] LABS: ANISOCYTOSIS 1+; BAND NEUTROPHILS % (MANUAL) 0 % (0-8); BASOPHILS % (MANUAL) 1 % (0-2); EOSINOPHILS % (MANUAL) 5 % (0-3); HYPOCHROMASIA 2+; LYMPHOCYTES % (MANUAL) 82 % (20-45); NEUTROPHILS % (MANUAL) 3 % (45-75); PLATELET ESTIMATE ADEQUATE; PLATELET MORPHOLOGY NORMAL; TOTAL CELLS COUNTED 100
[2016-12-26 11:14] LABS: OTHERS PATHOLOGIST COMMENT
--- NOTE | 2016-12-26 12:31 | Infectious Diseases Prog Note ---
Assessment/Plan Assessment/Plan HPI: 31 yo known to me, asked to see patient with hx of pseudomonas septic arthritis that failed cipro therapy. I saw patient on last admission and patient had debridement and treated for patient for septic arthritis based on aspiration of right knee joint and analysis. Culture was negative but patient on previous abx. MRI of right knee was concerning for osteo based on report. Patient was started on vancomycin and cefepime and then changed to daptomycin and cefepime. Patient has received 4 weeks of abx as of today, plan was 6 weeks abx. Patient was noted to have a wbc count of 1.2 and I was called by the home health pharmacist and told her to tell patient to come to [facility] and I told patient to come also. Patient wbc today is 0.8, patient was admitted to hospital. Last week patients wbc was normal on her weekly labs. 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 difficulty breathing and was getting daptomycin for mrsa coverage 4) d/w pharmacy 5) d/w patient and answered questions Subjective Constitutional: Denies: fever Respiratory: Denies: shortness of breath Cardiovascular: Denies: chest pain Gastrointestinal/Abdominal: Denies: diarrhea, nausea, vomiting Neurologic: Denies: headache, numbness Psychiatric: Denies: depression Skin: Denies: rash Hematologic: Denies: bleeding Musculoskeletal: Denies: pain Allergies: Coded Allergies: HYDROMORPHONE (Verified Allergy, Unknown, 11/27/16) Objective Vital Signs Last 24 Hour Vital Signs Date Time Temp Pulse Resp B/P Pulse Ox O2 Delivery O2 Flow Rate FiO2 12/26/16 10:12 97.5 68 18 91/49 100 Room Air 12/26/16 07:48 97.7 12/26/16 04:00 97.7 73 20 108/70 100 Room Air 12/26/16 01:00 98.1 80 18 113/63 98 Room Air 12/25/16 20:00 97.2 86 17 107/59 99 Room Air 12/25/16 16:00 97.9 97 18 116/63 99 Room Air 12/25/16 14:56 98.1 84 20 124/62 98 Room Air Height (Feet): 5 Height (Inches): 4.00 Weight (Pounds): 138 General Appearance: no acute distress HEENT: normocephalic, atraumatic, anicteric, mucous membranes moist, PERRL, EOMI, pharynx normal, supple, no JVD Respiratory/Chest: lungs clear, normal breath sounds, no respiratory distress, no accessory muscle use Cardiovascular: normal rate, regular rhythm, no gallop/murmur, no JVD Abdomen: normal bowel sounds, soft, non tender, no organomegaly, non distended Genitourinary: other - no villareal Extremities: no cyanosis Skin: no rash Neurologic/Psychiatric: rn cvor II-XII grossly normal, alert, oriented x 3, responsive Lymphatic: no neck adenopathy Musculoskeletal: no effusion Objective previous mri right knee - was consistent with septic arthritis and concerning for osteomyelitis none previous [facility] culture of right knee was negative but patient on prior abx outside hospital culture grew out pseudomonas of right knee - correction to previous note in that I don't recall sensitivities reported Laboratory Tests Test 12/25/16 16:00 12/26/16 07:00 White Blood Count 0.8 K/UL (4.8-10.8) *L 2.2 K/UL (4.8-10.8) #L Red Blood Count 3.60 M/UL (4.20-5.40) L 3.40 M/UL (4.20-5.40) L Hemoglobin 10.4 G/DL (12.0-16.0) L 9.8 G/DL (12.0-16.0) L Hematocrit 31.7 % (37.0-47.0) L 29.4 % (37.0-47.0) L Mean Corpuscular Volume 88 FL (80-99) 86 FL (80-99) Mean Corpuscular Hemoglobin 28.9 PG (27.0-31.0) 28.8 PG (27.0-31.0) Mean Corpuscular Hemoglobin Concent 32.8 G/DL (32.0-36.0) 33.3 G/DL (32.0-36.0) Red Cell Distribution Width 13.7 % (11.6-14.8) 13.4 % (11.6-14.8) Platelet Count 170 K/UL (150-450) 180 K/UL (150-450) Mean Platelet Volume 7.2 FL (6.5-10.1) 7.7 FL (6.5-10.1) Neutrophils (%) (Auto) % (45.0-75.0) % (45.0-75.0) Lymphocytes (%) (Auto) % (20.0-45.0) % (20.0-45.0) Monocytes (%) (Auto) % (1.0-10.0) % (1.0-10.0) Eosinophils (%) (Auto) % (0.0-3.0) % (0.0-3.0) Basophils (%) (Auto) % (0.0-2.0) % (0.0-2.0) Differential Total Cells Counted 100 100 Neutrophils % (Manual) 0 % (45-75) L 3 % (45-75) L Lymphocytes % (Manual) 92 % (20-45) H 82 % (20-45) H Monocytes % (Manual) 6 % (1-10) 9 % (1-10) Eosinophils % (Manual) 2 % (0-3) 5 % (0-3) H Basophils % (Manual) 0 % (0-2) 1 % (0-2) Band Neutrophils 0 % (0-8) 0 % (0-8) Other Cell Type Pathologist comment Platelet Estimate Adequate Adequate Platelet Morphology Normal Normal Polychromasia 1+ Sodium Level 139 mEQ/L (135-145) 139 mEQ/L (135-145) Potassium Level 4.0 mEQ/L (3.4-4.9) 3.7 mEQ/L (3.4-4.9) Chloride Level 101 mEQ/L (98-107) 100 mEQ/L (98-107) Carbon Dioxide Level 24 mEQ/L (20-30) 26 mEQ/L (20-30) Anion Gap 14 (5-15) 13 (5-15) Blood Urea Nitrogen 10 mg/dL (7-23) 7 mg/dL (7-23) Creatinine 0.6 mg/dL (0.5-0.9) 0.5 mg/dL (0.5-0.9) Estimat Glomerular Filtration Rate > 60 mL/min (>60) > 60 mL/min (>60) Glucose Level 151 mg/dL (74-106) H 84 mg/dL (74-106) Calcium Level 8.9 mg/dL (8.6-10.2) 8.6 mg/dL (8.6-10.2) Total Bilirubin 0.4 mg/dL (0.0-1.2) Aspartate Amino Transf (AST/SGOT) 17 U/L (5-40) Alanine Aminotransferase (ALT/SGPT) 12 U/L (3-33) Alkaline Phosphatase 64 U/L (35-104) Total Protein 6.8 g/dL (6.6-8.7) Albumin 3.9 g/dL (3.5-5.2) Globulin 2.9 g/dL Albumin/Globulin Ratio 1.3 (1.0-2.7) Hypochromasia 2+ Anisocytosis 1+ Erythrocyte Sedimentation Rate 38 MM/HR (0-20) H Urine Color Pale yellow Urine Appearance Clear Urine pH 6.5 (4.5-8.0) Urine Specific [place] 1.010 (1.005-1.035) Urine Protein Negative (NEGATIVE) Urine Glucose (UA) Negative (NEGATIVE) Urine Ketones Negative (NEGATIVE) Urine Occult Blood Negative (NEGATIVE) Urine Nitrite Negative (NEGATIVE) Urine Bilirubin Negative (NEGATIVE) Urine Urobilinogen Normal MG/DL (0.0-1.0) Urine Leukocyte Esterase Negative (NEGATIVE) Total Creatine Kinase 28 U/L (26-140) C-Reactive Protein, Quantitative 1.0 mg/dL (< 0.5) H Current Medications Medications (Trade) Dose Ordered Sig/Soraya Route PRN Reason Start Time Stop Time Status Last Admin Dose Admin Bupropion HCl (Wellbutrin XL) 300 mg BID ORAL 12/26/16 09:00 01/25/17 08:59 UNV Dextrose (Dextrose 50%) STAT PRN IV Hypoglycemia 12/25/16 15:15 01/24/17 15:14 Docusate Sodium (Colace) 100 mg EVERY 12 HOURS ORAL 12/25/16 21:00 01/24/17 20:59 12/26/16 10:17 Escitalopram Oxalate (Lexapro) 10 mg DAILY ORAL 12/26/16 09:00 01/25/17 08:59 12/26/16 10:15 Folic Acid (Folate) 1 mg DAILY ORAL 12/26/16 09:00 01/25/17 08:59 12/26/16 10:14 Heparin Sodium (Porcine) (Heparin 5000 units/ml) 5,000 units EVERY 12 HOURS SUBQ 12/25/16 21:00 01/24/17 20:59 12/26/16 10:19 Levothyroxine Sodium (Synthroid) 75 mcg DAILY@0630 ORAL 12/26/16 06:30 01/25/17 06:29 12/26/16 06:48 Levothyroxine Sodium (Synthroid) 100 mcg DAILY@0630 ORAL 12/26/16 06:30 01/25/17 06:29 12/26/16 06:47 Multivitamins (Multivitamins) 1 tab DAILY ORAL 12/26/16 09:00 01/25/17 08:59 12/26/16 10:17 Oxycodone/ Acetaminophen (Percocet 10/325) 1 tab Q4H PRN ORAL Severe Pain (Pain Scale 7-10) 12/25/16 15:15 01/01/17 15:14 12/26/16 10:16 Sennosides (Senokot) 17.2 mg DAILYPRN PRN ORAL Constipation 12/25/16 15:15 01/24/17 15:14 Vitamin E (Vitamin E) 400 intlu DAILY ORAL 12/26/16 09:00 01/25/17 08:59 12/26/16 10:16 SPENCER SCHWARTZ Dec 26, 2016 12:31
--- NOTE | 2016-12-26 13:07 | Internal Med Progress Note ---
Subjective Date of Service: Dec 26, 2016 Physician Name Dc Wright Attending Physician Jj Montana MD Current Medications Medications (Trade) Dose Ordered Sig/Soraya Route PRN Reason Start Time Stop Time Status Last Admin Dose Admin Bupropion HCl 300 mg 300 mg BID ORAL 12/26/16 09:00 01/25/17 08:59 UNV Daptomycin/Sodium Chloride (Cubicin/Sodium Chloride) 110 ml @ 220 mls/hr Q24H IV 12/26/16 14:00 01/02/17 13:59 Dextrose (Dextrose 50%) STAT PRN IV Hypoglycemia 12/25/16 15:15 01/24/17 15:14 Docusate Sodium (Colace) 100 mg EVERY 12 HOURS ORAL 12/25/16 21:00 01/24/17 20:59 12/26/16 10:17 Escitalopram Oxalate (Lexapro) 10 mg DAILY ORAL 12/26/16 09:00 01/25/17 08:59 12/26/16 10:15 Folic Acid (Folate) 1 mg DAILY ORAL 12/26/16 09:00 01/25/17 08:59 12/26/16 10:14 Heparin Sodium (Porcine) (Heparin 5000 units/ml) 5,000 units EVERY 12 HOURS SUBQ 12/25/16 21:00 01/24/17 20:59 12/26/16 10:19 Levothyroxine Sodium (Synthroid) 75 mcg DAILY@0630 ORAL 12/26/16 06:30 01/25/17 06:29 12/26/16 06:48 Levothyroxine Sodium (Synthroid) 100 mcg DAILY@0630 ORAL 12/26/16 06:30 01/25/17 06:29 12/26/16 06:47 Meropenem 1 gm/ Sodium Chloride 110 ml @ 220 mls/hr Q8HR IVPB 12/26/16 14:00 12/31/16 13:59 Multivitamins (Multivitamins) 1 tab DAILY ORAL 12/26/16 09:00 01/25/17 08:59 12/26/16 10:17 Oxycodone/ Acetaminophen (Percocet 10/325) 1 tab Q4H PRN ORAL Severe Pain (Pain Scale 7-10) 12/25/16 15:15 01/01/17 15:14 12/26/16 10:16 Sennosides (Senokot) 17.2 mg DAILYPRN PRN ORAL Constipation 12/25/16 15:15 01/24/17 15:14 Vitamin E (Vitamin E) 400 intlu DAILY ORAL 12/26/16 09:00 01/25/17 08:59 12/26/16 10:16 Allergies: Coded Allergies: HYDROMORPHONE (Verified Allergy, Unknown, 11/27/16) ROS Limited/Unobtainable: No Constitutional: Reports: no symptoms HEENT: Reports: no symptoms Cardiovascular: Reports: no symptoms Respiratory: Reports: no symptoms Gastrointestinal/Abdominal: Reports: no symptoms Genitourinary: Reports: no symptoms Neurologic/Psychiatric: Reports: no symptoms Subjective 31 YO F admitted with neutropenia. H/O right knee septic arthritis and osteomyelitis. Cover for Int Med-Dr Montana Objective Last Vital Signs Date Time Temp Pulse Resp B/P Pulse Ox O2 Delivery O2 Flow Rate FiO2 12/26/16 11:15 97.5 12/26/16 10:12 68 18 91/49 100 Room Air General Appearance: WD/WN, no apparent distress, alert EENT: PERRL/EOMI, normal ENT inspection, TMs normal Neck: non-tender, normal alignment, supple Cardiovascular: normal peripheral pulses, normal rate, regular rhythm, no gallop/murmur, no JVD Respiratory/Chest: chest wall non-tender, lungs clear, normal breath sounds, no respiratory distress, no accessory muscle use Abdomen: normal bowel sounds, non tender, soft, no organomegaly, no mass Extremities: normal range of motion, other - tenderness right knee 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 normal, no motor/sensory deficits Skin: normal pigmentation, warm/dry Laboratory Tests Test 12/25/16 16:00 12/26/16 07:00 White Blood Count 0.8 K/UL (4.8-10.8) *L 2.2 K/UL (4.8-10.8) #L Red Blood Count 3.60 M/UL (4.20-5.40) L 3.40 M/UL (4.20-5.40) L Hemoglobin 10.4 G/DL (12.0-16.0) L 9.8 G/DL (12.0-16.0) L Hematocrit 31.7 % (37.0-47.0) L 29.4 % (37.0-47.0) L Mean Corpuscular Volume 88 FL (80-99) 86 FL (80-99) Mean Corpuscular Hemoglobin 28.9 PG (27.0-31.0) 28.8 PG (27.0-31.0) Mean Corpuscular Hemoglobin Concent 32.8 G/DL (32.0-36.0) 33.3 G/DL (32.0-36.0) Red Cell Distribution Width 13.7 % (11.6-14.8) 13.4 % (11.6-14.8) Platelet Count 170 K/UL (150-450) 180 K/UL (150-450) Mean Platelet Volume 7.2 FL (6.5-10.1) 7.7 FL (6.5-10.1) Neutrophils (%) (Auto) % (45.0-75.0) % (45.0-75.0) Lymphocytes (%) (Auto) % (20.0-45.0) % (20.0-45.0) Monocytes (%) (Auto) % (1.0-10.0) % (1.0-10.0) Eosinophils (%) (Auto) % (0.0-3.0) % (0.0-3.0) Basophils (%) (Auto) % (0.0-2.0) % (0.0-2.0) Differential Total Cells Counted 100 100 Neutrophils % (Manual) 0 % (45-75) L 3 % (45-75) L Lymphocytes % (Manual) 92 % (20-45) H 82 % (20-45) H Monocytes % (Manual) 6 % (1-10) 9 % (1-10) Eosinophils % (Manual) 2 % (0-3) 5 % (0-3) H Basophils % (Manual) 0 % (0-2) 1 % (0-2) Band Neutrophils 0 % (0-8) 0 % (0-8) Other Cell Type Pathologist comment Platelet Estimate Adequate Adequate Platelet Morphology Normal Normal Polychromasia 1+ Sodium Level 139 mEQ/L (135-145) 139 mEQ/L (135-145) Potassium Level 4.0 mEQ/L (3.4-4.9) 3.7 mEQ/L (3.4-4.9) Chloride Level 101 mEQ/L (98-107) 100 mEQ/L (98-107) Carbon Dioxide Level 24 mEQ/L (20-30) 26 mEQ/L (20-30) Anion Gap 14 (5-15) 13 (5-15) Blood Urea Nitrogen 10 mg/dL (7-23) 7 mg/dL (7-23) Creatinine 0.6 mg/dL (0.5-0.9) 0.5 mg/dL (0.5-0.9) Estimat Glomerular Filtration Rate > 60 mL/min (>60) > 60 mL/min (>60) Glucose Level 151 mg/dL (74-106) H 84 mg/dL (74-106) Calcium Level 8.9 mg/dL (8.6-10.2) 8.6 mg/dL (8.6-10.2) Total Bilirubin 0.4 mg/dL (0.0-1.2) Aspartate Amino Transf (AST/SGOT) 17 U/L (5-40) Alanine Aminotransferase (ALT/SGPT) 12 U/L (3-33) Alkaline Phosphatase 64 U/L (35-104) Total Protein 6.8 g/dL (6.6-8.7) Albumin 3.9 g/dL (3.5-5.2) Globulin 2.9 g/dL Albumin/Globulin Ratio 1.3 (1.0-2.7) Hypochromasia 2+ Anisocytosis 1+ Erythrocyte Sedimentation Rate 38 MM/HR (0-20) H Urine Color Pale yellow Urine Appearance Clear Urine pH 6.5 (4.5-8.0) Urine Specific [place] 1.010 (1.005-1.035) Urine Protein Negative (NEGATIVE) Urine Glucose (UA) Negative (NEGATIVE) Urine Ketones Negative (NEGATIVE) Urine Occult Blood Negative (NEGATIVE) Urine Nitrite Negative (NEGATIVE) Urine Bilirubin Negative (NEGATIVE) Urine Urobilinogen Normal MG/DL (0.0-1.0) Urine Leukocyte Esterase Negative (NEGATIVE) Total Creatine Kinase 28 U/L (26-140) C-Reactive Protein, Quantitative 1.0 mg/dL (< 0.5) H Intake and Output 12/25/16 12/26/16 19:00 07:00 Intake Total 720 ml Balance 720 ml Intake Oral 720 ml # Voids 1 2 Assessment/Plan Problem List: (1) Osteomyelitis of left knee region Assessment & Plan: Continue daptomycin and meropenem per ID (2) Neutropenia Assessment & Plan: Due to cefepime. See ID note. D/C cefepime. (3) Leukopenia Assessment & Plan: Resolving; hold cefepime (4) Pain in right knee (5) Septic arthritis of knee, right Assessment & Plan: Continue meropenem and daptomycin per ID (6) Hypothyroidism Assessment & Plan: Cont levoxyl (7) Major depression Assessment & Plan: Continue lexapro and Wellbutrin. Status: progressing DC WRIGHT Dec 26, 2016 13:07
[2016-12-26 14:00] VITALS: BP 101/50
[2016-12-26] MEDS ORDERED: Meropenem 1 GM in NS 110 ML IVPB SCH ×2 (14:00→14:30)
[2016-12-26 16:00] VITALS: BP 99/59
[2016-12-26] MEDS ORDERED: Tubing IV Secondary IV ONE (17:04)
[2016-12-26] MEDS ORDERED: NS 275ml ONE (17:04)
[2016-12-26] MEDS: DAPTOmycin 400 MG in NS 110 ML IV SCH (17:26)
[2016-12-26 20:00] VITALS: BP 104/62
--- NOTE | 2016-12-26 20:58 | Consultation ---
DATE OF CONSULTATION: 12/26/2016 ORTHOPEDIC CONSULTATION CONSULTING PHYSICIAN: Chilo Torres M.D. REQUESTING PHYSICIAN: Jj Montana M.D. HISTORY OF PRESENT ILLNESS: The patient is a pleasant female, who is well known to me. She underwent another incision and drainage of the right knee. She was on intravenous antibiotics. She completed 4 weeks of antibiotics with outpatient physical therapy. She is doing pretty well. Some routine laboratory values performed on Saturday showed she was very neutropenic given the level of the WBC, she was directly admitted. It is felt that the neutropenia may be as result of the antibiotics. The patient otherwise is doing much better from the right knee. She is rehabbing very well with physical therapy as an outpatient. PAST MEDICAL HISTORY: Reviewed from the intake chart. PAST SURGICAL HISTORY: Reviewed from the intake chart. MEDICATIONS: Reviewed from the intake chart. PHYSICAL EXAMINATION: GENERAL: The patient is alert and oriented. She is resting comfortably in bed. VITAL SIGNS: Afebrile. Stable vital signs. EXTREMITIES: Right knee examination shows improvement of the quad atrophy. The incisions are dry and intact. No drainage. Minimal pain. NEUROVASCULAR: Normal. Posterior calf is soft. ASSESSMENT: Status post incision and drainage, right septic joint disease possible osteomyelitis right knee. DISCUSSION: At this point, during the consensus of despite the antibiotics have caused the neutropenia, since she has been off the antibiotics. White count has increased. She is on different antibiotics as per Infectious Disease consultation. We will continue to monitor her symptoms. If the white count improves, then I will probably concur with continuing with the antibiotics for the next couple of weeks and at that point, while discussion whether or not to extend her intravenous treatment or transition to oral medications. The possibility of osteomyelitis was also discussed in the event that she has recurrent pain and swelling and this needs to be addressed differently. At this time, she does may consider getting a repeat MRI as well. Once she is off the antibiotics to assess the skin adjacent to the lateral to the plateau and tibial spine, which was concerning for possible osteo. Chilo Torres M.D. DR: RIYA JOB#: [id number] CC:
[2016-12-26] MEDS: Meropenem 1 GM in NS 55 ML IVPB SCH (22:24)
[2016-12-27] MEDS: Meropenem 1 GM in NS 55 ML IVPB SCH ×3 (06:43→20:47)
[2016-12-27 07:29] LABS: MEAN CORPUSCULAR HEMOGLOBIN 28.1 PG (27.0-31.0); MEAN CORPUSCULAR HGB CONC 32.4 G/DL (32.0-36.0); MEAN CORPUSCULAR VOLUME 87 FL (80-99); MEAN PLATELET VOLUME 7.3 FL (6.5-10.1); PLATELET COUNT 191 K/UL (150-450); RED BLOOD COUNT 3.42 M/UL (4.20-5.40); RED CELL DISTRIBUTION WIDTH 13.5 % (11.6-14.8); WHITE BLOOD COUNT 2.5 K/UL (4.8-10.8)
[2016-12-27 07:46] LABS: ANION GAP 13 (5-15); CALCIUM 8.2 mg/dL (8.6-10.2); CARBON DIOXIDE 26 mEQ/L (20-30); CHLORIDE 98 mEQ/L (98-107); CREATININE 0.6 mg/dL (0.5-0.9); GLOMERULAR FILTRATION RATE > 60 mL/min (>60); HEMOLYSIS 2; SODIUM 137 mEQ/L (135-145)
[2016-12-27 09:51] LABS: BAND NEUTROPHILS % (MANUAL) 0 % (0-8); BASOPHILS % (MANUAL) 0 % (0-2); EOSINOPHILS % (MANUAL) 8 % (0-3); LYMPHOCYTES % (MANUAL) 77 % (20-45); NEUTROPHILS % (MANUAL) 8 % (45-75); PLATELET ESTIMATE ADEQUATE; PLATELET MORPHOLOGY NORMAL; TOTAL CELLS COUNTED 100
[2016-12-27 09:52] LABS: HYPOCHROMASIA 1+
[2016-12-27] MEDS: Docusate 100mg cap ORAL SCH ×2 (09:55→20:47)
[2016-12-27] MEDS: Heparin 5000 units/ml inj SUBQ SCH ×2 (10:03→20:50)
[2016-12-27 11:36] VITALS: BP 100/51
--- NOTE | 2016-12-27 13:22 | Infectious Diseases Prog Note ---
Assessment/Plan Assessment/Plan HPI: 31 yo known to me, asked to see patient with hx of pseudomonas septic arthritis that failed cipro therapy. I saw patient on last admission and patient had debridement and treated for patient for septic arthritis based on aspiration of right knee joint and analysis. Culture was negative but patient on previous abx. MRI of right knee was concerning for osteo based on report. Patient was started on vancomycin and cefepime and then changed to daptomycin and cefepime. Patient has received 4 weeks of abx as of today, plan was 6 weeks abx. Patient was noted to have a wbc count of 1.2 and I was called by the home health pharmacist and told her to tell patient to come to [facility] and I told patient to come also. Patient wbc today is 0.8, patient was admitted to hospital. Last week patients wbc was normal on her weekly labs. A) 1) severe neutropenia likely secondary to cefepime - abx held, wbc improving off cefepime 2) s/p I/D right knee on 11/27/16 - likely septic arthritis, MRI concerning for possible osteo of right knee 3) patient s/p 4 weeks of antibiotics (vancomycin switched to daptomycin plus cefepime) - clinically right knee significantly better, sr much improved 4) bfc negative but on prior abx 5) hx pseudomonas right knee, s/p debridement, s/p snf abx including cipro which she is on now 6) s/p right knee arthroscopy 3 months ago 7) pmh o/w negative, sh - negative, fh-nc, mar noted, notes and records reviewed 8) d/w RN P) 1) meropenem and daptomycin - day # abx 2) watch labs, bc ordered, watch wbc closely 3) patient also could not tolerate vancomycin as an outpatient - ? difficulty breathing and was getting daptomycin for mrsa coverage 4) d/w patient and answered questions Subjective Constitutional: Denies: fever HEENT: Denies: congestion Respiratory: Denies: shortness of breath Gastrointestinal/Abdominal: Denies: diarrhea Skin: Denies: rash Allergies: Coded Allergies: HYDROMORPHONE (Verified Allergy, Unknown, 11/27/16) Objective Vital Signs Last 24 Hour Vital Signs Date Time Temp Pulse Resp B/P Pulse Ox O2 Delivery O2 Flow Rate FiO2 12/27/16 11:36 98.6 86 16 100/51 99 Room Air 12/26/16 20:00 97.6 64 18 104/62 96 Room Air 12/26/16 16:00 97.7 72 17 99/59 99 Room Air 12/26/16 14:00 97.7 63 20 101/50 99 Room Air Height (Feet): 5 Height (Inches): 4.00 Weight (Pounds): 138 General Appearance: no acute distress HEENT: normocephalic, atraumatic, anicteric, mucous membranes moist, PERRL, EOMI, pharynx normal, supple, no JVD Respiratory/Chest: lungs clear, normal breath sounds, no respiratory distress Cardiovascular: normal rate, regular rhythm, no gallop/murmur, no JVD Abdomen: normal bowel sounds, soft, non tender, no organomegaly, non distended Skin: no rash Objective previous mri right knee - was consistent with septic arthritis and concerning for osteomyelitis Microbiology Date/Time Source Procedure Growth Status 12/25/16 22:00 Blood Blood Culture - Preliminary NO GROWTH AFTER 24 HOURS Resulted 12/25/16 20:50 Blood Blood Culture - Preliminary NO GROWTH AFTER 24 HOURS Resulted Laboratory Tests Test 12/27/16 06:55 White Blood Count 2.5 K/UL (4.8-10.8) L Red Blood Count 3.42 M/UL (4.20-5.40) L Hemoglobin 9.6 G/DL (12.0-16.0) L Hematocrit 29.7 % (37.0-47.0) L Mean Corpuscular Volume 87 FL (80-99) Mean Corpuscular Hemoglobin 28.1 PG (27.0-31.0) Mean Corpuscular Hemoglobin Concent 32.4 G/DL (32.0-36.0) Red Cell Distribution Width 13.5 % (11.6-14.8) Platelet Count 191 K/UL (150-450) Mean Platelet Volume 7.3 FL (6.5-10.1) Neutrophils (%) (Auto) % (45.0-75.0) Lymphocytes (%) (Auto) % (20.0-45.0) Monocytes (%) (Auto) % (1.0-10.0) Eosinophils (%) (Auto) % (0.0-3.0) Basophils (%) (Auto) % (0.0-2.0) Differential Total Cells Counted 100 Neutrophils % (Manual) 8 % (45-75) L Lymphocytes % (Manual) 77 % (20-45) H Monocytes % (Manual) 7 % (1-10) Eosinophils % (Manual) 8 % (0-3) H Basophils % (Manual) 0 % (0-2) Band Neutrophils 0 % (0-8) Platelet Estimate Adequate Platelet Morphology Normal Hypochromasia 1+ Sodium Level 137 mEQ/L (135-145) Potassium Level 4.0 mEQ/L (3.4-4.9) Chloride Level 98 mEQ/L (98-107) Carbon Dioxide Level 26 mEQ/L (20-30) Anion Gap 13 (5-15) Blood Urea Nitrogen 8 mg/dL (7-23) Creatinine 0.6 mg/dL (0.5-0.9) Estimat Glomerular Filtration Rate > 60 mL/min (>60) Glucose Level 83 mg/dL (74-106) Calcium Level 8.2 mg/dL (8.6-10.2) L Current Medications Medications (Trade) Dose Ordered Sig/Soraya Route PRN Reason Start Time Stop Time Status Last Admin Dose Admin Bupropion HCl 150 mg 150 mg DAILY ORAL 12/27/16 15:00 01/26/17 14:59 Daptomycin 400 mg/ Sodium Chloride 110 ml @ 220 mls/hr Q24H IV 12/26/16 14:00 01/02/17 13:59 12/26/16 17:26 Dextrose (Dextrose 50%) STAT PRN IV Hypoglycemia 12/25/16 15:15 01/24/17 15:14 Diphenhydramine HCl (Benadryl) 25 mg Q6H PRN ORAL Itching 12/26/16 21:00 01/25/17 20:59 Docusate Sodium (Colace) 100 mg EVERY 12 HOURS ORAL 12/25/16 21:00 01/24/17 20:59 12/27/16 09:55 Escitalopram Oxalate (Lexapro) 10 mg DAILY ORAL 12/26/16 09:00 01/25/17 08:59 12/27/16 09:55 Folic Acid (Folate) 1 mg DAILY ORAL 12/26/16 09:00 01/25/17 08:59 12/27/16 09:55 Heparin Sodium (Porcine) (Heparin 5000 units/ml) 5,000 units EVERY 12 HOURS SUBQ 12/25/16 21:00 01/24/17 20:59 12/27/16 10:03 Levothyroxine Sodium (Synthroid) 75 mcg DAILY@0630 ORAL 12/26/16 06:30 01/25/17 06:29 12/27/16 06:40 Levothyroxine Sodium (Synthroid) 100 mcg DAILY@0630 ORAL 12/26/16 06:30 01/25/17 06:29 12/27/16 06:40 Meropenem/Sodium Chloride (Merrem/Sodium Chloride) 55 ml @ 110 mls/hr Q8HR IVPB 12/26/16 22:00 12/31/16 21:59 12/27/16 06:43 Multivitamins (Multivitamins) 1 tab DAILY ORAL 12/26/16 09:00 01/25/17 08:59 12/27/16 09:55 Oxycodone/ Acetaminophen (Percocet 10/325) 1 tab Q4H PRN ORAL Severe Pain (Pain Scale 7-10) 12/25/16 15:15 01/01/17 15:14 12/27/16 11:36 Sennosides (Senokot) 17.2 mg DAILYPRN PRN ORAL Constipation 12/25/16 15:15 01/24/17 15:14 Vitamin E (Vitamin E) 400 intlu DAILY ORAL 12/26/16 09:00 01/25/17 08:59 12/27/16 09:55 SPENCER SCHWARTZ 2, 2017 13:22
[2016-12-27] MEDS: DAPTOmycin 400 MG in NS 110 ML IV SCH (15:03)
[2016-12-27] MEDS: BuPROPion XL 150mg tab ORAL SCH (15:03)
[2016-12-27 15:58] VITALS: BP 100/59
[2016-12-27] MEDS: Lactobacillus-GG tablet ORAL SCH (17:33)
--- NOTE | 2016-12-27 17:45 | Internal Med Progress Note ---
Subjective Date of Service: Dec 27, 2016 Physician Name Dc Wright Attending Physician Jj Montana MD Current Medications Medications (Trade) Dose Ordered Sig/Soraya Route PRN Reason Start Time Stop Time Status Last Admin Dose Admin Bupropion HCl 150 mg 150 mg DAILY ORAL 12/27/16 15:00 01/26/17 14:59 12/27/16 15:03 Daptomycin 400 mg/ Sodium Chloride 110 ml @ 220 mls/hr Q24H IV 12/26/16 14:00 01/02/17 13:59 12/27/16 15:03 Dextrose (Dextrose 50%) STAT PRN IV Hypoglycemia 12/25/16 15:15 01/24/17 15:14 Diphenhydramine HCl (Benadryl) 25 mg Q6H PRN ORAL Itching 12/26/16 21:00 01/25/17 20:59 Docusate Sodium (Colace) 100 mg EVERY 12 HOURS ORAL 12/25/16 21:00 01/24/17 20:59 12/27/16 09:55 Escitalopram Oxalate (Lexapro) 10 mg DAILY ORAL 12/26/16 09:00 01/25/17 08:59 12/27/16 09:55 Folic Acid (Folate) 1 mg DAILY ORAL 12/26/16 09:00 01/25/17 08:59 12/27/16 09:55 Heparin Sodium (Porcine) (Heparin 5000 units/ml) 5,000 units EVERY 12 HOURS SUBQ 12/25/16 21:00 01/24/17 20:59 12/27/16 10:03 Lactobacillus Acidophilus (Culturelle) 1 tab THREE TIMES A DAY ORAL 12/27/16 18:00 01/26/17 17:59 12/27/16 17:33 Levothyroxine Sodium (Synthroid) 75 mcg DAILY@0630 ORAL 12/26/16 06:30 01/25/17 06:29 12/27/16 06:40 Levothyroxine Sodium (Synthroid) 100 mcg DAILY@0630 ORAL 12/26/16 06:30 01/25/17 06:29 12/27/16 06:40 Meropenem/Sodium Chloride (Merrem/Sodium Chloride) 55 ml @ 110 mls/hr Q8HR IVPB 12/26/16 22:00 12/31/16 21:59 12/27/16 15:20 Multivitamins (Multivitamins) 1 tab DAILY ORAL 12/26/16 09:00 01/25/17 08:59 12/27/16 09:55 Oxycodone/ Acetaminophen (Percocet 10/325) 1 tab Q4H PRN ORAL Severe Pain (Pain Scale 7-10) 12/25/16 15:15 01/01/17 15:14 12/27/16 11:36 Sennosides (Senokot) 17.2 mg DAILYPRN PRN ORAL Constipation 12/25/16 15:15 01/24/17 15:14 Vitamin E (Vitamin E) 400 intlu DAILY ORAL 12/26/16 09:00 01/25/17 08:59 12/27/16 09:55 Allergies: Coded Allergies: HYDROMORPHONE (Verified Allergy, Unknown, 11/27/16) ROS Limited/Unobtainable: No Constitutional: Reports: no symptoms HEENT: Reports: no symptoms Cardiovascular: Reports: no symptoms Respiratory: Reports: no symptoms Gastrointestinal/Abdominal: Reports: no symptoms Genitourinary: Reports: no symptoms Neurologic/Psychiatric: Reports: no symptoms Subjective 31 YO F admitted with neutropenia. H/O right knee septic arthritis and osteomyelitis. Cover for Int Med-Dr Montana Objective Last Vital Signs Date Time Temp Pulse Resp B/P Pulse Ox O2 Delivery O2 Flow Rate FiO2 12/27/16 15:58 97.3 78 20 100/59 99 Room Air Laboratory Tests Test 12/27/16 06:55 White Blood Count 2.5 K/UL (4.8-10.8) L Red Blood Count 3.42 M/UL (4.20-5.40) L Hemoglobin 9.6 G/DL (12.0-16.0) L Hematocrit 29.7 % (37.0-47.0) L Mean Corpuscular Volume 87 FL (80-99) Mean Corpuscular Hemoglobin 28.1 PG (27.0-31.0) Mean Corpuscular Hemoglobin Concent 32.4 G/DL (32.0-36.0) Red Cell Distribution Width 13.5 % (11.6-14.8) Platelet Count 191 K/UL (150-450) Mean Platelet Volume 7.3 FL (6.5-10.1) Neutrophils (%) (Auto) % (45.0-75.0) Lymphocytes (%) (Auto) % (20.0-45.0) Monocytes (%) (Auto) % (1.0-10.0) Eosinophils (%) (Auto) % (0.0-3.0) Basophils (%) (Auto) % (0.0-2.0) Differential Total Cells Counted 100 Neutrophils % (Manual) 8 % (45-75) L Lymphocytes % (Manual) 77 % (20-45) H Monocytes % (Manual) 7 % (1-10) Eosinophils % (Manual) 8 % (0-3) H Basophils % (Manual) 0 % (0-2) Band Neutrophils 0 % (0-8) Platelet Estimate Adequate Platelet Morphology Normal Hypochromasia 1+ Sodium Level 137 mEQ/L (135-145) Potassium Level 4.0 mEQ/L (3.4-4.9) Chloride Level 98 mEQ/L (98-107) Carbon Dioxide Level 26 mEQ/L (20-30) Anion Gap 13 (5-15) Blood Urea Nitrogen 8 mg/dL (7-23) Creatinine 0.6 mg/dL (0.5-0.9) Estimat Glomerular Filtration Rate > 60 mL/min (>60) Glucose Level 83 mg/dL (74-106) Calcium Level 8.2 mg/dL (8.6-10.2) L Microbiology Date/Time Source Procedure Growth Status 12/25/16 22:00 Blood Blood Culture - Preliminary NO GROWTH AFTER 24 HOURS Resulted 12/25/16 20:50 Blood Blood Culture - Preliminary NO GROWTH AFTER 24 HOURS Resulted Intake and Output 12/26/16 12/27/16 19:00 07:00 Intake Total 700 ml 180 ml Balance 700 ml 180 ml Intake Oral 700 ml 180 ml # Voids 2 4 Objective General Appearance: WD/WN, no apparent distress, alert EENT: PERRL/EOMI, normal ENT inspection, TMs normal Neck: non-tender, normal alignment, supple Cardiovascular: normal peripheral pulses, normal rate, regular rhythm, no gallop/murmur, no JVD Respiratory/Chest: chest wall non-tender, lungs clear, normal breath sounds, no respiratory distress, no accessory muscle use Abdomen: normal bowel sounds, non tender, soft, no organomegaly, no mass Extremities: normal range of motion, other - tenderness right knee 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 Probably due to cefepime-See ID note; D/C cefepime. (3) Leukopenia Assessment & Plan: Resolving; hold cefepime (4) Pain in right knee (5) Septic arthritis of knee, right Assessment & Plan: Continue meropenem and daptomycin per ID (6) Hypothyroidism Assessment & Plan: Cont levoxyl (7) Major depression Assessment & Plan: Continue lexapro and Wellbutrin. Status: not improved DC WRIGHT Dec 27, 2016 17:45
[2016-12-27 19:00] VITALS: BP 118/73
[2016-12-28] MEDS: Meropenem 1 GM in NS 55 ML IVPB SCH ×3 (06:03→22:49)
[2016-12-28 06:36] LABS: MEAN CORPUSCULAR HEMOGLOBIN 28.6 PG (27.0-31.0); MEAN CORPUSCULAR HGB CONC 32.6 G/DL (32.0-36.0); MEAN CORPUSCULAR VOLUME 88 FL (80-99); MEAN PLATELET VOLUME 6.9 FL (6.5-10.1); PLATELET COUNT 208 K/UL (150-450); RED BLOOD COUNT 3.44 M/UL (4.20-5.40); RED CELL DISTRIBUTION WIDTH 13.7 % (11.6-14.8); WHITE BLOOD COUNT 2.4 K/UL (4.8-10.8)
[2016-12-28 07:05] LABS: ANION GAP 13 (5-15); CALCIUM 8.7 mg/dL (8.6-10.2); CARBON DIOXIDE 27 mEQ/L (20-30); CHLORIDE 100 mEQ/L (98-107); CREATININE 0.6 mg/dL (0.5-0.9); GLOMERULAR FILTRATION RATE > 60 mL/min (>60); HEMOLYSIS 0; SODIUM 140 mEQ/L (135-145)
[2016-12-28 08:31] VITALS: BP 92/50
[2016-12-28 08:53] LABS: EOSINOPHILS % (MANUAL) 10 % (0-3); LYMPHOCYTES % (MANUAL) 68 % (20-45); NEUTROPHILS % (MANUAL) 13 % (45-75); TOTAL CELLS COUNTED 100
[2016-12-28 08:55] LABS: BAND NEUTROPHILS % (MANUAL) 0 % (0-8); BASOPHILS % (MANUAL) 0 % (0-2); PLATELET ESTIMATE ADEQUATE; PLATELET MORPHOLOGY NORMAL
[2016-12-28 08:56] LABS: HYPOCHROMASIA 1+
[2016-12-28] MEDS: Docusate 100mg cap ORAL SCH ×2 (09:03→22:49)
[2016-12-28] MEDS: BuPROPion XL 150mg tab ORAL SCH (09:03)
[2016-12-28] MEDS: Lactobacillus-GG tablet ORAL SCH ×3 (09:03→17:29)
[2016-12-28] MEDS: Heparin 5000 units/ml inj SUBQ SCH ×2 (09:07→22:52)
[2016-12-28 11:51] VITALS: BP 101/54
--- NOTE | 2016-12-28 13:28 | Infectious Diseases Prog Note ---
Assessment/Plan Assessment/Plan A) 1) severe neutropenia likely secondary to cefepime - abx held, wbc overall improved but still leukopenic, neutrophils % improving, ? b-lactam class reaction and not just cefepime specific 2) s/p I/D/debridement right knee on 11/27/16 - likely septic arthritis, MRI concerning for possible osteo of right knee, hx pseudomonas right knee septic arthritis 3) clinically right knee much improved, sed rate significantly improved 4) bfc negative but on prior abx 5) hx pseudomonas right knee infection, s/p debridement, s/p detention abx including cipro 6) s/p right knee arthroscopy 3 months ago 7) hypothyroidism, depression 8) pmh o/w negative, sh - negative, fh-nc, mar noted, notes and records reviewed 9) d/w RN P) 1) meropenem and daptomycin - day # 31 abx total 2) watch labs, watch wbc closely 3) patient also could not tolerate vancomycin as an outpatient - ? difficulty breathing and was getting daptomycin for mrsa coverage 4) d/w patient and answered questions 5) still need to observe patient in inpatient setting since can have life- threatening neutropenia and need make definitive diagnosis of why neutropenic. If no improvement in neutropenia tomorrow will change abx to aminoglycoside and assume b-lactam class antibiotic reaction and not just cefepime. Subjective Constitutional: Denies: fever HEENT: Denies: congestion Respiratory: Denies: shortness of breath Cardiovascular: Denies: chest pain Gastrointestinal/Abdominal: Denies: nausea, vomiting Genitourinary: Reports: other - no villareal Neurologic: Denies: headache Psychiatric: Denies: depression Skin: Denies: rash Hematologic: Reports: bleeding Musculoskeletal: Denies: pain Allergies: Coded Allergies: HYDROMORPHONE (Verified Allergy, Unknown, 11/27/16) Objective Vital Signs Last 24 Hour Vital Signs Date Time Temp Pulse Resp B/P Pulse Ox O2 Delivery O2 Flow Rate FiO2 12/28/16 11:51 97.3 78 15 101/54 99 Room Air 12/28/16 08:31 97.0 75 14 92/50 98 Room Air 12/27/16 19:00 97.5 80 20 118/73 98 Room Air 12/27/16 15:58 97.3 78 20 100/59 99 Room Air Height (Feet): 5 Height (Inches): 4.00 Weight (Pounds): 138 General Appearance: no acute distress HEENT: normocephalic, atraumatic, anicteric, mucous membranes moist, PERRL, EOMI, pharynx normal, supple, no JVD Respiratory/Chest: lungs clear, normal breath sounds, no respiratory distress, no accessory muscle use Cardiovascular: normal rate, regular rhythm, no gallop/murmur, no JVD Abdomen: normal bowel sounds, soft, non tender, no organomegaly, non distended Genitourinary: other - no villareal Extremities: no cyanosis Skin: no rash 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, alert, oriented x 3, responsive Lymphatic: no neck adenopathy Musculoskeletal: other - right knee without significant redness and swelling, rom good Objective previous mri right knee - was consistent with septic arthritis and concerning for osteomyelitis Microbiology Date/Time Source Procedure Growth Status 12/25/16 22:00 Blood Blood Culture - Preliminary NO GROWTH AFTER 48 HOURS Resulted 12/25/16 20:50 Blood Blood Culture - Preliminary NO GROWTH AFTER 48 HOURS Resulted Laboratory Tests Test 12/28/16 06:20 White Blood Count 2.4 K/UL (4.8-10.8) L Red Blood Count 3.44 M/UL (4.20-5.40) L Hemoglobin 9.8 G/DL (12.0-16.0) L Hematocrit 30.2 % (37.0-47.0) L Mean Corpuscular Volume 88 FL (80-99) Mean Corpuscular Hemoglobin 28.6 PG (27.0-31.0) Mean Corpuscular Hemoglobin Concent 32.6 G/DL (32.0-36.0) Red Cell Distribution Width 13.7 % (11.6-14.8) Platelet Count 208 K/UL (150-450) Mean Platelet Volume 6.9 FL (6.5-10.1) Neutrophils (%) (Auto) % (45.0-75.0) Lymphocytes (%) (Auto) % (20.0-45.0) Monocytes (%) (Auto) % (1.0-10.0) Eosinophils (%) (Auto) % (0.0-3.0) Basophils (%) (Auto) % (0.0-2.0) Differential Total Cells Counted 100 Neutrophils % (Manual) 13 % (45-75) L Lymphocytes % (Manual) 68 % (20-45) H Monocytes % (Manual) 9 % (1-10) Eosinophils % (Manual) 10 % (0-3) H Basophils % (Manual) 0 % (0-2) Band Neutrophils 0 % (0-8) Platelet Estimate Adequate Platelet Morphology Normal Hypochromasia 1+ Sodium Level 140 mEQ/L (135-145) Potassium Level 4.0 mEQ/L (3.4-4.9) Chloride Level 100 mEQ/L (98-107) Carbon Dioxide Level 27 mEQ/L (20-30) Anion Gap 13 (5-15) Blood Urea Nitrogen 8 mg/dL (7-23) Creatinine 0.6 mg/dL (0.5-0.9) Estimat Glomerular Filtration Rate > 60 mL/min (>60) Glucose Level 88 mg/dL (74-106) Calcium Level 8.7 mg/dL (8.6-10.2) Current Medications Medications (Trade) Dose Ordered Sig/Soraya Route PRN Reason Start Time Stop Time Status Last Admin Dose Admin Bupropion HCl 150 mg 150 mg DAILY ORAL 12/27/16 15:00 01/26/17 14:59 12/28/16 09:03 Daptomycin 400 mg/ Sodium Chloride 110 ml @ 220 mls/hr Q24H IV 12/26/16 14:00 01/02/17 13:59 12/27/16 15:03 Dextrose (Dextrose 50%) STAT PRN IV Hypoglycemia 12/25/16 15:15 01/24/17 15:14 Diphenhydramine HCl (Benadryl) 25 mg Q6H PRN ORAL Itching 12/26/16 21:00 01/25/17 20:59 Docusate Sodium (Colace) 100 mg EVERY 12 HOURS ORAL 12/25/16 21:00 01/24/17 20:59 12/28/16 09:03 Escitalopram Oxalate (Lexapro) 10 mg DAILY ORAL 12/26/16 09:00 01/25/17 08:59 12/28/16 09:03 Folic Acid (Folate) 1 mg DAILY ORAL 12/26/16 09:00 01/25/17 08:59 12/28/16 09:03 Heparin Sodium (Porcine) (Heparin 5000 units/ml) 5,000 units EVERY 12 HOURS SUBQ 12/25/16 21:00 01/24/17 20:59 12/28/16 09:07 Lactobacillus Acidophilus (Culturelle) 1 tab THREE TIMES A DAY ORAL 12/27/16 18:00 01/26/17 17:59 12/28/16 09:03 Levothyroxine Sodium (Synthroid) 75 mcg DAILY@0630 ORAL 12/26/16 06:30 01/25/17 06:29 12/28/16 06:03 Levothyroxine Sodium (Synthroid) 100 mcg DAILY@0630 ORAL 12/26/16 06:30 01/25/17 06:29 12/28/16 06:03 Meropenem/Sodium Chloride (Merrem/Sodium Chloride) 55 ml @ 110 mls/hr Q8HR IVPB 12/26/16 22:00 12/31/16 21:59 12/28/16 06:03 Multivitamins (Multivitamins) 1 tab DAILY ORAL 12/26/16 09:00 01/25/17 08:59 12/28/16 09:03 Oxycodone/ Acetaminophen (Percocet 10/325) 1 tab Q4H PRN ORAL Severe Pain (Pain Scale 7-10) 12/25/16 15:15 01/01/17 15:14 12/28/16 06:20 Sennosides (Senokot) 17.2 mg DAILYPRN PRN ORAL Constipation 12/25/16 15:15 01/24/17 15:14 Vitamin E (Vitamin E) 400 intlu DAILY ORAL 12/26/16 09:00 01/25/17 08:59 12/28/16 09:03 SPENCER SCHWARTZ 3, 2017 13:28
[2016-12-28 16:00] VITALS: BP 99/65
[2016-12-28] MEDS ORDERED: DAPTOmycin 400 MG in NS 110 ML IV SCH (16:00)
--- NOTE | 2016-12-28 18:21 | Internal Med Progress Note ---
Subjective Date of Service: Dec 28, 2016 Physician Name Lisa Wright Attending Physician Jj Montana MD Current Medications Medications (Trade) Dose Ordered Sig/Soraya Route PRN Reason Start Time Stop Time Status Last Admin Dose Admin Bupropion HCl 150 mg 150 mg DAILY ORAL 12/27/16 15:00 01/26/17 14:59 12/28/16 09:03 Daptomycin/Sodium Chloride (Cubicin/Sodium Chloride) 110 ml @ 220 mls/hr Q24H IV 12/28/16 16:00 01/04/17 15:59 12/28/16 17:29 Dextrose (Dextrose 50%) STAT PRN IV Hypoglycemia 12/25/16 15:15 01/24/17 15:14 Diphenhydramine HCl (Benadryl) 25 mg Q6H PRN ORAL Itching 12/26/16 21:00 01/25/17 20:59 Docusate Sodium (Colace) 100 mg EVERY 12 HOURS ORAL 12/25/16 21:00 01/24/17 20:59 12/28/16 09:03 Escitalopram Oxalate (Lexapro) 10 mg DAILY ORAL 12/26/16 09:00 01/25/17 08:59 12/28/16 09:03 Folic Acid (Folate) 1 mg DAILY ORAL 12/26/16 09:00 01/25/17 08:59 12/28/16 09:03 Heparin Sodium (Porcine) (Heparin 5000 units/ml) 5,000 units EVERY 12 HOURS SUBQ 12/25/16 21:00 01/24/17 20:59 12/28/16 09:07 Lactobacillus Acidophilus 1 tab 1 tab THREE TIMES A DAY ORAL 12/27/16 18:00 01/26/17 17:59 12/28/16 17:29 Levothyroxine Sodium (Synthroid) 75 mcg DAILY@0630 ORAL 12/26/16 06:30 01/25/17 06:29 12/28/16 06:03 Levothyroxine Sodium (Synthroid) 100 mcg DAILY@0630 ORAL 12/26/16 06:30 01/25/17 06:29 12/28/16 06:03 Meropenem/Sodium Chloride (Merrem/Sodium Chloride) 55 ml @ 110 mls/hr Q8HR IVPB 12/26/16 22:00 12/31/16 21:59 12/28/16 13:19 Multivitamins (Multivitamins) 1 tab DAILY ORAL 12/26/16 09:00 01/25/17 08:59 12/28/16 09:03 Oxycodone/ Acetaminophen (Percocet 10/325) 1 tab Q4H PRN ORAL Severe Pain (Pain Scale 7-10) 12/25/16 15:15 01/01/17 15:14 12/28/16 06:20 Sennosides (Senokot) 17.2 mg DAILYPRN PRN ORAL Constipation 12/25/16 15:15 01/24/17 15:14 Vitamin E (Vitamin E) 400 intlu DAILY ORAL 12/26/16 09:00 01/25/17 08:59 12/28/16 09:03 Allergies: Coded Allergies: HYDROMORPHONE (Verified Allergy, Unknown, 11/27/16) ROS Limited/Unobtainable: No Constitutional: Reports: no symptoms HEENT: Reports: no symptoms Cardiovascular: Reports: no symptoms Respiratory: Reports: no symptoms Gastrointestinal/Abdominal: Reports: no symptoms Genitourinary: Reports: no symptoms Neurologic/Psychiatric: Reports: no symptoms Subjective 31 YO F admitted with neutropenia. H/O right knee septic arthritis and osteomyelitis. Cover for Int [facility]-Dr Montana Objective Last Vital Signs Date Time Temp Pulse Resp B/P Pulse Ox O2 Delivery O2 Flow Rate FiO2 12/28/16 16:00 97.3 80 20 99/65 100 Room Air Laboratory Tests Test 12/28/16 06:20 White Blood Count 2.4 K/UL (4.8-10.8) L Red Blood Count 3.44 M/UL (4.20-5.40) L Hemoglobin 9.8 G/DL (12.0-16.0) L Hematocrit 30.2 % (37.0-47.0) L Mean Corpuscular Volume 88 FL (80-99) Mean Corpuscular Hemoglobin 28.6 PG (27.0-31.0) Mean Corpuscular Hemoglobin Concent 32.6 G/DL (32.0-36.0) Red Cell Distribution Width 13.7 % (11.6-14.8) Platelet Count 208 K/UL (150-450) Mean Platelet Volume 6.9 FL (6.5-10.1) Neutrophils (%) (Auto) % (45.0-75.0) Lymphocytes (%) (Auto) % (20.0-45.0) Monocytes (%) (Auto) % (1.0-10.0) Eosinophils (%) (Auto) % (0.0-3.0) Basophils (%) (Auto) % (0.0-2.0) Differential Total Cells Counted 100 Neutrophils % (Manual) 13 % (45-75) L Lymphocytes % (Manual) 68 % (20-45) H Monocytes % (Manual) 9 % (1-10) Eosinophils % (Manual) 10 % (0-3) H Basophils % (Manual) 0 % (0-2) Band Neutrophils 0 % (0-8) Platelet Estimate Adequate Platelet Morphology Normal Hypochromasia 1+ Sodium Level 140 mEQ/L (135-145) Potassium Level 4.0 mEQ/L (3.4-4.9) Chloride Level 100 mEQ/L (98-107) Carbon Dioxide Level 27 mEQ/L (20-30) Anion Gap 13 (5-15) Blood Urea Nitrogen 8 mg/dL (7-23) Creatinine 0.6 mg/dL (0.5-0.9) Estimat Glomerular Filtration Rate > 60 mL/min (>60) Glucose Level 88 mg/dL (74-106) Calcium Level 8.7 mg/dL (8.6-10.2) Microbiology Date/Time Source Procedure Growth Status 12/25/16 22:00 Blood Blood Culture - Preliminary NO GROWTH AFTER 48 HOURS Resulted 12/25/16 20:50 Blood Blood Culture - Preliminary NO GROWTH AFTER 48 HOURS Resulted Intake and Output 12/27/16 12/28/16 19:00 07:00 Intake Total 1000 ml 350 ml Balance 1000 ml 350 ml Intake Oral 1000 ml 240 ml IV Total 110 ml # Voids 2 5 Objective General Appearance: WD/WN, no apparent distress, alert EENT: PERRL/EOMI, normal ENT inspection, TMs normal Neck: non-tender, normal alignment, supple Cardiovascular: normal peripheral pulses, normal rate, regular rhythm, no gallop/murmur, no JVD Respiratory/Chest: chest wall non-tender, lungs clear, normal breath sounds, no respiratory distress, no accessory muscle use Abdomen: normal bowel sounds, non tender, soft, no organomegaly, no mass Extremities: normal range of motion, other - tenderness right knee 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 Probably due to cefepime-See ID note; D/C cefepime. (3) Leukopenia Assessment & Plan: Resolving; hold cefepime (4) Pain in right knee (5) Septic arthritis of knee, right Assessment & Plan: Continue meropenem and daptomycin per ID (6) Hypothyroidism Assessment & Plan: Cont levoxyl (7) Major depression Assessment & Plan: Continue lexapro and Wellbutrin. Status: not improved LISA WRIGHT Dec 28, 2016 18:21
[2016-12-28 19:00] VITALS: BP 103/45
[2016-12-28] MEDS ORDERED: Tubing IV Secondary IV ONE (22:51)
[2016-12-29] MEDS: Meropenem 1 GM in NS 55 ML IVPB SCH (06:10)
[2016-12-29 06:55] LABS: MEAN CORPUSCULAR HEMOGLOBIN 28.4 PG (27.0-31.0); MEAN CORPUSCULAR HGB CONC 32.4 G/DL (32.0-36.0); MEAN CORPUSCULAR VOLUME 88 FL (80-99); MEAN PLATELET VOLUME 7.2 FL (6.5-10.1); PLATELET COUNT 207 K/UL (150-450); RED BLOOD COUNT 3.51 M/UL (4.20-5.40); RED CELL DISTRIBUTION WIDTH 13.5 % (11.6-14.8); WHITE BLOOD COUNT 3.2 K/UL (4.8-10.8)
--- NOTE | 2016-12-29 07:08 | Progress Note ---
DATE: 12/28/2016 SUBJECTIVE: The patient is doing well from the knee. Her white count has not increased anymore as of earlier today. She is actually feeling much better. She has no issues from the knee point of view. She has also posterolateral knee pain. Examination shows incision is clean, dry, and intact. Effusion is only minimal. She is able to bear weight. Her range of knee she still has . ASSESSMENT: 1. Right knee septic joint 2. Neutropenia secondary to antibiotics. DISCUSSION: At this point, her white count has not increased as much as dramatically as before. Therefore, at this point, we will just continue to monitor it. If it continues to be initiated, then she will have to be start some different medications or different antibiotics, hopefully, work on response. She does need additional 10 days of IV antibiotics at which point, we will monitor for the septic joint recurrence. Chilo Torres M.D. DR: Rufina JOB#: [id number] CC:
[2016-12-29 07:27] LABS: ALANINE AMINOTRANSFERASE 10 U/L (3-33); ALBUMIN/GLOBULIN RATIO 1.2 (1.0-2.7); ANION GAP 13 (5-15); ASPARTATE AMINO TRANSFERASE 14 U/L (5-40); CALCIUM 8.9 mg/dL (8.6-10.2); CARBON DIOXIDE 27 mEQ/L (20-30); CHLORIDE 100 mEQ/L (98-107); CREATININE 0.6 mg/dL (0.5-0.9); GLOMERULAR FILTRATION RATE > 60 mL/min (>60); HEMOLYSIS 6; POTASSIUM 3.8 mEQ/L (3.4-4.9); SODIUM 140 mEQ/L (135-145); TOTAL PROTEIN 6.4 g/dL (6.6-8.7)
[2016-12-29 07:28] LABS: CRP QUANT < 0.3 mg/dL (< 0.5)
[2016-12-29 08:00] VITALS: BP 96/56
[2016-12-29] MEDS: Heparin 5000 units/ml inj SUBQ SCH (09:00)
[2016-12-29] MEDS: BuPROPion XL 150mg tab ORAL SCH (10:29)
[2016-12-29] MEDS: Lactobacillus-GG tablet ORAL SCH ×3 (10:29→17:10)
[2016-12-29] MEDS: Docusate 100mg cap ORAL SCH (10:30)
[2016-12-29 11:28] LABS: EOSINOPHILS % (MANUAL) 5 % (0-3); LYMPHOCYTES % (MANUAL) 73 % (20-45); NEUTROPHILS % (MANUAL) 19 % (45-75); TOTAL CELLS COUNTED 100
--- NOTE | 2016-12-29 11:28 | Infectious Diseases Prog Note ---
Assessment/Plan Assessment/Plan A) 1) severe neutropenia likely secondary to cefepime - wbc much better 2) s/p I/D/debridement right knee on 11/27/16 - likely septic arthritis, MRI concerning for possible osteo of right knee, hx pseudomonas right knee septic arthritis 3) clinically right knee much improved, sed rate significantly improved 4) bfc negative but on prior abx 5) hx pseudomonas right knee infection, s/p debridement, s/p technician terminal and repeater abx including cipro 6) s/p right knee arthroscopy 3 months ago 7) hypothyroidism, depression 8) pmh o/w negative, sh - negative, fh-nc, mar noted, notes and records reviewed 9) d/w RN P) 1) meropenem and daptomycin - day # 32/42 abx total 2) watch labs 3) patient also could not tolerate vancomycin as an outpatient - ? difficulty breathing and was getting daptomycin for mrsa coverage 4) d/w patient and answered questions 5) stable id standpoint for discharge once home health arrangements made 6) went over abx and labs course with charge nurse as outpatient Subjective Constitutional: Denies: fever HEENT: Denies: congestion Respiratory: Denies: shortness of breath Cardiovascular: Denies: chest pain Gastrointestinal/Abdominal: Denies: nausea Allergies: Coded Allergies: HYDROMORPHONE (Verified Allergy, Unknown, 11/27/16) Objective Vital Signs Last 24 Hour Vital Signs Date Time Temp Pulse Resp B/P Pulse Ox O2 Delivery O2 Flow Rate FiO2 12/29/16 08:00 97.5 83 14 96/56 98 Room Air 12/28/16 19:00 98.1 74 20 103/45 98 Room Air 12/28/16 16:00 97.3 80 20 99/65 100 Room Air 12/28/16 11:51 97.3 78 15 101/54 99 Room Air Height (Feet): 5 Height (Inches): 4.00 Weight (Pounds): 138 General Appearance: no acute distress HEENT: normocephalic, atraumatic, anicteric Respiratory/Chest: lungs clear, normal breath sounds, no respiratory distress, no accessory muscle use Cardiovascular: normal rate, regular rhythm, no gallop/murmur, no JVD Abdomen: normal bowel sounds, soft, non tender, no organomegaly, non distended Genitourinary: other - no villareal Extremities: no cyanosis Skin: no rash 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, alert, oriented x 3 Lymphatic: no neck adenopathy Musculoskeletal: other - right knee stable Objective previous mri right knee - was consistent with septic arthritis and concerning for osteomyelitis Laboratory Tests Test 12/29/16 06:10 White Blood Count 3.2 K/UL (4.8-10.8) L Red Blood Count 3.51 M/UL (4.20-5.40) L Hemoglobin 10.0 G/DL (12.0-16.0) L Hematocrit 30.8 % (37.0-47.0) L Mean Corpuscular Volume 88 FL (80-99) Mean Corpuscular Hemoglobin 28.4 PG (27.0-31.0) Mean Corpuscular Hemoglobin Concent 32.4 G/DL (32.0-36.0) Red Cell Distribution Width 13.5 % (11.6-14.8) Platelet Count 207 K/UL (150-450) Mean Platelet Volume 7.2 FL (6.5-10.1) Neutrophils (%) (Auto) % (45.0-75.0) Lymphocytes (%) (Auto) % (20.0-45.0) Monocytes (%) (Auto) % (1.0-10.0) Eosinophils (%) (Auto) % (0.0-3.0) Basophils (%) (Auto) % (0.0-2.0) Neutrophils % (Manual) Pending Lymphocytes % (Manual) Pending Platelet Estimate Pending Platelet Morphology Pending Erythrocyte Sedimentation Rate 28 MM/HR (0-20) H Sodium Level 140 mEQ/L (135-145) Potassium Level 3.8 mEQ/L (3.4-4.9) Chloride Level 100 mEQ/L (98-107) Carbon Dioxide Level 27 mEQ/L (20-30) Anion Gap 13 (5-15) Blood Urea Nitrogen 7 mg/dL (7-23) Creatinine 0.6 mg/dL (0.5-0.9) Estimat Glomerular Filtration Rate > 60 mL/min (>60) Glucose Level 87 mg/dL (74-106) Calcium Level 8.9 mg/dL (8.6-10.2) Total Bilirubin 0.2 mg/dL (0.0-1.2) Aspartate Amino Transf (AST/SGOT) 14 U/L (5-40) Alanine Aminotransferase (ALT/SGPT) 10 U/L (3-33) Alkaline Phosphatase 51 U/L (35-104) Total Creatine Kinase 32 U/L (26-140) C-Reactive Protein, Quantitative < 0.3 mg/dL (< 0.5) Total Protein 6.4 g/dL (6.6-8.7) L Albumin 3.6 g/dL (3.5-5.2) Globulin 2.8 g/dL Albumin/Globulin Ratio 1.2 (1.0-2.7) Current Medications Medications (Trade) Dose Ordered Sig/Soraya Route PRN Reason Start Time Stop Time Status Last Admin Dose Admin Bupropion HCl 150 mg 150 mg DAILY ORAL 12/27/16 15:00 01/26/17 14:59 12/29/16 10:29 Daptomycin/Sodium Chloride (Cubicin/Sodium Chloride) 110 ml @ 220 mls/hr Q24H IV 12/28/16 16:00 01/04/17 15:59 12/28/16 17:29 Dextrose (Dextrose 50%) STAT PRN IV Hypoglycemia 12/25/16 15:15 01/24/17 15:14 Diphenhydramine HCl (Benadryl) 25 mg Q6H PRN ORAL Itching 12/26/16 21:00 01/25/17 20:59 Docusate Sodium (Colace) 100 mg EVERY 12 HOURS ORAL 12/25/16 21:00 01/24/17 20:59 12/29/16 10:30 Escitalopram Oxalate (Lexapro) 10 mg DAILY ORAL 12/26/16 09:00 01/25/17 08:59 12/29/16 10:30 Folic Acid (Folate) 1 mg DAILY ORAL 12/26/16 09:00 01/25/17 08:59 12/29/16 10:30 Heparin Sodium (Porcine) (Heparin 5000 units/ml) 5,000 units EVERY 12 HOURS SUBQ 12/25/16 21:00 01/24/17 20:59 12/28/16 22:52 Lactobacillus Acidophilus 1 tab 1 tab THREE TIMES A DAY ORAL 12/27/16 18:00 01/26/17 17:59 12/29/16 10:29 Levothyroxine Sodium (Synthroid) 75 mcg DAILY@0630 ORAL 12/26/16 06:30 01/25/17 06:29 12/29/16 06:10 Levothyroxine Sodium (Synthroid) 100 mcg DAILY@0630 ORAL 12/26/16 06:30 01/25/17 06:29 12/29/16 06:10 Meropenem/Sodium Chloride (Merrem/Sodium Chloride) 55 ml @ 110 mls/hr Q8HR IVPB 12/26/16 22:00 12/31/16 21:59 12/29/16 06:10 Multivitamins (Multivitamins) 1 tab DAILY ORAL 12/26/16 09:00 01/25/17 08:59 12/29/16 10:31 Oxycodone/ Acetaminophen (Percocet 10/325) 1 tab Q4H PRN ORAL Severe Pain (Pain Scale 7-10) 12/25/16 15:15 01/01/17 15:14 12/29/16 06:21 Sennosides (Senokot) 17.2 mg DAILYPRN PRN ORAL Constipation 12/25/16 15:15 01/24/17 15:14 Vitamin E (Vitamin E) 400 intlu DAILY ORAL 12/26/16 09:00 01/25/17 08:59 12/29/16 10:30 SPENCER SCHWARTZ 4, 2017 11:28
[2016-12-29 11:29] LABS: BAND NEUTROPHILS % (MANUAL) 0 % (0-8); BASOPHILS % (MANUAL) 0 % (0-2); PLATELET ESTIMATE ADEQUATE; PLATELET MORPHOLOGY NORMAL
[2016-12-29 11:37] VITALS: BP 104/57
[2016-12-29] MEDS ORDERED: Meropenem 1 GM in NS 55 ML IVPB SCH (14:00)
[2016-12-29] MEDS ORDERED: Tubing IV Secondary IV ONE (14:55)
[2016-12-29] MEDS ORDERED: NS 275ml ONE (14:55)
[2016-12-29] MEDS ORDERED: DAPTOmycin 400 MG in NS 110 ML IV SCH (16:00)
[2016-12-29 16:15] VITALS: BP 140/87
--- NOTE | 2016-12-29 16:55 | Internal Med Progress Note ---
Subjective Date of Service: Dec 29, 2016 Physician Name Dc Wright Attending Physician Jj Montana MD Current Medications Medications (Trade) Dose Ordered Sig/Soraya Route PRN Reason Start Time Stop Time Status Last Admin Dose Admin Bupropion HCl (Wellbutrin XL) 150 mg DAILY ORAL 12/27/16 15:00 01/26/17 14:59 12/29/16 10:29 Daptomycin 400 mg/ Sodium Chloride 110 ml @ 220 mls/hr Q24H IV 12/29/16 16:00 01/05/17 15:59 12/29/16 16:36 Dextrose (Dextrose 50%) STAT PRN IV Hypoglycemia 12/25/16 15:15 01/24/17 15:14 Diphenhydramine HCl (Benadryl) 25 mg Q6H PRN ORAL Itching 12/26/16 21:00 01/25/17 20:59 Docusate Sodium (Colace) 100 mg EVERY 12 HOURS ORAL 12/25/16 21:00 01/24/17 20:59 12/29/16 10:30 Escitalopram Oxalate (Lexapro) 10 mg DAILY ORAL 12/26/16 09:00 01/25/17 08:59 12/29/16 10:30 Folic Acid (Folate) 1 mg DAILY ORAL 12/26/16 09:00 01/25/17 08:59 12/29/16 10:30 Heparin Sodium (Porcine) (Heparin 5000 units/ml) 5,000 units EVERY 12 HOURS SUBQ 12/25/16 21:00 01/24/17 20:59 12/28/16 22:52 Lactobacillus Acidophilus 1 tab 1 tab THREE TIMES A DAY ORAL 12/27/16 18:00 01/26/17 17:59 12/29/16 13:26 Levothyroxine Sodium (Synthroid) 75 mcg DAILY@0630 ORAL 12/26/16 06:30 01/25/17 06:29 12/29/16 06:10 Levothyroxine Sodium (Synthroid) 100 mcg DAILY@0630 ORAL 12/26/16 06:30 01/25/17 06:29 12/29/16 06:10 Meropenem/Sodium Chloride (Merrem/Sodium Chloride) 55 ml @ 110 mls/hr Q8HR IVPB 12/29/16 14:00 01/03/17 13:59 12/29/16 13:27 Multivitamins (Multivitamins) 1 tab DAILY ORAL 12/26/16 09:00 01/25/17 08:59 12/29/16 10:31 Oxycodone/ Acetaminophen (Percocet 10/325) 1 tab Q4H PRN ORAL Severe Pain (Pain Scale 7-10) 12/25/16 15:15 01/01/17 15:14 12/29/16 06:21 Sennosides (Senokot) 17.2 mg DAILYPRN PRN ORAL Constipation 12/25/16 15:15 01/24/17 15:14 Vitamin E (Vitamin E) 400 intlu DAILY ORAL 12/26/16 09:00 01/25/17 08:59 12/29/16 10:30 Allergies: Coded Allergies: HYDROMORPHONE (Verified Allergy, Unknown, 11/27/16) Constitutional: Reports: no symptoms HEENT: Reports: no symptoms Cardiovascular: Reports: no symptoms Respiratory: Reports: no symptoms Gastrointestinal/Abdominal: Reports: no symptoms Genitourinary: Reports: no symptoms Neurologic/Psychiatric: Reports: no symptoms Subjective 31 YO F admitted with neutropenia. H/O right knee septic arthritis and osteomyelitis. Cover for Int Med-Dr Montana. Patient discharge held due to home antibiotics not authorized by home health Objective Last Vital Signs Date Time Temp Pulse Resp B/P Pulse Ox O2 Delivery O2 Flow Rate FiO2 12/29/16 16:15 97.7 96 16 140/87 99 Room Air Laboratory Tests Test 12/29/16 06:10 White Blood Count 3.2 K/UL (4.8-10.8) L Red Blood Count 3.51 M/UL (4.20-5.40) L Hemoglobin 10.0 G/DL (12.0-16.0) L Hematocrit 30.8 % (37.0-47.0) L Mean Corpuscular Volume 88 FL (80-99) Mean Corpuscular Hemoglobin 28.4 PG (27.0-31.0) Mean Corpuscular Hemoglobin Concent 32.4 G/DL (32.0-36.0) Red Cell Distribution Width 13.5 % (11.6-14.8) Platelet Count 207 K/UL (150-450) Mean Platelet Volume 7.2 FL (6.5-10.1) Neutrophils (%) (Auto) % (45.0-75.0) Lymphocytes (%) (Auto) % (20.0-45.0) Monocytes (%) (Auto) % (1.0-10.0) Eosinophils (%) (Auto) % (0.0-3.0) Basophils (%) (Auto) % (0.0-2.0) Differential Total Cells Counted 100 Neutrophils % (Manual) 19 % (45-75) L Lymphocytes % (Manual) 73 % (20-45) H Monocytes % (Manual) 3 % (1-10) Eosinophils % (Manual) 5 % (0-3) H Basophils % (Manual) 0 % (0-2) Band Neutrophils 0 % (0-8) Platelet Estimate Adequate Platelet Morphology Normal Red Blood Cell Morphology Normal Erythrocyte Sedimentation Rate 28 MM/HR (0-20) H Sodium Level 140 mEQ/L (135-145) Potassium Level 3.8 mEQ/L (3.4-4.9) Chloride Level 100 mEQ/L (98-107) Carbon Dioxide Level 27 mEQ/L (20-30) Anion Gap 13 (5-15) Blood Urea Nitrogen 7 mg/dL (7-23) Creatinine 0.6 mg/dL (0.5-0.9) Estimat Glomerular Filtration Rate > 60 mL/min (>60) Glucose Level 87 mg/dL (74-106) Calcium Level 8.9 mg/dL (8.6-10.2) Total Bilirubin 0.2 mg/dL (0.0-1.2) Aspartate Amino Transf (AST/SGOT) 14 U/L (5-40) Alanine Aminotransferase (ALT/SGPT) 10 U/L (3-33) Alkaline Phosphatase 51 U/L (35-104) Total Creatine Kinase 32 U/L (26-140) C-Reactive Protein, Quantitative < 0.3 mg/dL (< 0.5) Total Protein 6.4 g/dL (6.6-8.7) L Albumin 3.6 g/dL (3.5-5.2) Globulin 2.8 g/dL Albumin/Globulin Ratio 1.2 (1.0-2.7) Intake and Output 12/28/16 12/29/16 19:00 07:00 Intake Total 1000 ml 350 ml Balance 1000 ml 350 ml Intake Oral 1000 ml 240 ml IV Total 110 ml # Voids 2 5 Objective General Appearance: WD/WN, no apparent distress, alert EENT: PERRL/EOMI, normal ENT inspection, TMs normal Neck: non-tender, normal alignment, supple Cardiovascular: normal peripheral pulses, normal rate, regular rhythm, no gallop/murmur, no JVD Respiratory/Chest: chest wall non-tender, lungs clear, normal breath sounds, no respiratory distress, no accessory muscle use Abdomen: normal bowel sounds, non tender, soft, no organomegaly, no mass Extremities: normal range of motion, other - tenderness right knee 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 Probably due to cefepime-See ID note; D/C cefepime. (3) Leukopenia Assessment & Plan: Resolving; hold cefepime (4) Pain in right knee (5) Septic arthritis of knee, right Assessment & Plan: Continue meropenem and daptomycin per ID (6) Hypothyroidism Assessment & Plan: Cont levoxyl (7) Major depression Assessment & Plan: Continue lexapro and Wellbutrin. Status: stable DC WRIGHT Dec 29, 2016 16:55
[2016-12-31] MEDS ORDERED: MEROPENEM-1 GM/50 ML IV (13:13)
[2016-12-31] MEDS ORDERED: CUBICIN RF500 MG IV (13:13)
--- NOTE | 2016-12-31 13:14 | Discharge Summary ---
Discharge Summary Hospital Course Date of Admission Dec 25, 2016 at 13:22 Date of Discharge Dec 29, 2016 at 19:20 Admitting Diagnosis HPI Kimberly Laguna is a 31 year old female who was admitted on Dec 25, 2016 at 13: 22 for Rheumatoid Arthritis Infection Hospital Course dc summary dictated #[id number] Discharge Medications New Medications: Daptomycin (Cubicin Rf) 500 Mg Vial 500 MG IV DAILY, #10 VIAL Meropenem-0.9% Sodium Chloride (Meropenem-0.9% NaCl 1 Gram/50) 1 Gm/50 Ml Piggyback 1 GM IV Q8HR, #30 BAG Continued Medications: Bupropion Hcl* (Wellbutrin*) 300 Mg Tab.er.24h 150 MG ORAL DAILY, #30 TAB 0 Refills Docusate Sodium (Docusate Sodium) 100 Mg Tablet 100 MG ORAL TID, #60 TAB 0 Refills Escitalopram Oxalate* (Lexapro*) 10 Mg Tablet 10 MG ORAL DAILY, TAB Iron (Iron) 18 Mg Tablet Unknown Dose PO, TAB Levothyroxine Sodium (Levothyroxine Sodium) 175 Mcg Tablet 175 MCG ORAL DAILY, TAB Take in the morning on an empty stomach, at least 30 minutes before food. Multivitamin (Multi Vitamin Daily) 1 Each Tablet 1 TAB ORAL DAILY, #30 TAB 0 Refills Oxycodone HCl/Acetaminophen (Percocet 10-325 mg Tablet) 1 Each Tablet 1 EACH PO Q4HR PRN for For Pain, TAB Sennosides (Senna Laxative) 8.6 Mg Tablet 17.2 MG PO DAILY, TAB [callagen] () Unknown Dose [Vit E] () PO DAILY Discharge Condition Upon Discharge: stable Discharge Disposition Patient was discharged to Home with Home Health(06) Discharge Diagnoses: Discharge Instructions Discharge Instructions Special Instructions I have been assigned to complete a D/C Summary on this account. I was not involved in the patient management Cecy Castellanos NP (Vanchtein) Dec 31, 2016 13:14
--- NOTE | 2017-01-01 07:58 | Discharge Summary 2 SIG ---
DATE OF ADMISSION: 12/25/2016 DATE OF DISCHARGE: 12/29/2016 REASON FOR ADMISSION: 31-year-old female with a history of septic arthritis of the right knee presented with leukopenia. The patient was at [facility] from 11/27/2016 to 12/03/2016. She was found to have septic arthritis. The patient underwent diagnostic right knee arthroscopy during that hospitalization. The patient was discharged home on 6 weeks of intravenous antibiotics vancomycin and cefepime. The patient was receiving Cubicin and cefepime as an outpatient intravenously and with the followup blood tests every Saturday. Laboratory studies of 12/24/2016 revealed leukopenia. The patient was directly admitted to [facility] for leukopenia and possible neutropenic fever. ADMITTING DIAGNOSES: 1. Leukopenia. 2. Severe neutropenia likely secondary to cefepime. 3. Septic arthritis, right knee. 4. Status post recent irrigation and debridement of the right knee. 5. Depression. 6. Hypothyroidism. HOSPITAL STAY: The patient was admitted to the hospital. ID consult was requested. Ortho consult was requested. Per ortho, no further ortho recommendation , except continue antibiotics. TSH was stable. Continue current dose of levothyroxine. Continue Wellbutrin and Lexapro for depression. Leukopenia improved from initial white blood count of 0.8 up to 3.2 and neutrophils from initial 0 to 19. Inflammatory markers were elevated. Blood culture was negative. The patient had a PICC line for IV antibiotics. Per Infectious Disease, the severe neutropenia was likely secondary to cefepime with significant improvement on leukocytes and neutrophils after discontinuation. The patient need to complete the course of antibiotics. MRI on the previous admission was concerning for possible osteomyelitis of the right knee. Clinically, right knee with significant improvement. ID cleared for discharge when the home health arranged. The patient will need 10 more days of meropenem and daptomycin. The patient did not tolerate vancomycin as outpatient for questionable difficulty breathing and was getting daptomycin for MRSA coverage and needs additional 10 days as outlined above. Cefepime was changed to Meropenem, which patient tolerates, and counts improved. The patient discharged home with home health. DISCHARGE MEDICATIONS: See medication reconciliation list, need 10 more days of antibiotics. DISCHARGE DIAGNOSES: 1. Severe neutropenia likely secondary to cefepime. 2. Leukopenia. 3. Septic arthritis, status post incision and drainage debridement right knee on 11/27/2016. 4. Possible osteomyelitis, right knee per MRI. 5. History of Pseudomonas, right knee septic arthritis. 6. Depression. 7. Hypothyroidism. DISCHARGE INSTRUCTIONS: Follow up with the primary medical doctor and Orthopedic. Home health for IV antibiotics for additional 10 days. Jj Montana M.D. I have been assigned to dictate discharge summary on this account and I was not involved in the patient's management. Cecy Castellanos (Vanchtein) N.PKirsten DR: INES JOB#: [id number] CC: [email or web address]
== END 2016-12-29 19:20 | disposition home health service (06) | DRG 809 ==
LOC: 3E 13:22 → 4E 16:30
DX: D70.2 Other drug-induced agranulocytosis (principal); M86.8X6 Other osteomyelitis, lower leg; M00.861 Arthritis due to other bacteria, right knee; T36.1X5A Adverse effect of cephalosporins and other beta-lactam antibiotics, initial encounter; F32.9 Major depressive disorder, single episode, unspecified; E03.9 Hypothyroidism, unspecified; B95.62 Methicillin resistant Staphylococcus aureus infection as the cause of diseases classified elsewhere; Z88.6 Allergy status to analgesic agent
CPT/HCPCS: 36415; 80048; 80053; 81003; 82550; 85007; 85025; 85651; 86140; 87040